=== PATIENT | female | born 1950 | race Caucasian/White ===

== ENCOUNTER 2020-03-20 08:50 | Outpatient (REF) | payer MEDICARE, SELFPAY ==
[2020-03-20 11:06] LABS: MANUAL DIFF FLAG NO
[2020-03-20 11:22] LABS: Basophils Percent Auto 0.2 % (0-2); Eosinophils Absolute Auto 0.1 X10*3/uL (0.0-0.4); Eosinophils Percent Auto 0.7 % (0-4); Hematocrit 39.3 % (37-47); Hemoglobin 12.6 g/dl (12.0-16.0); Imm Gran Abs Auto 0.07 X10*3/uL (0.00-0.03); Imm Gran Pct Auto 0.7 % (0.0-0.4); Lymphocytes Absolute Auto 1.5 X10*3/uL (1.2-4.9); Lymphocytes Percent Auto 14.5 % (20-40); Mean Corpuscular HGB Conc 32.1 g/dl (31.0-35.0); Mean Corpuscular Hemoglobin 31.3 pg (27.0-33.0); Mean Corpuscular Volume 97.8 fL (80-98); Mean Platelet Volume 9.4 fL (9.4-12.3); Monocytes Absolute Auto 0.6 X10*3/uL (0.1-1.2); Monocytes Percent Auto 5.9 % (2-11); Neutrophils Absolute Auto 8.3 X10*3/uL (2.0-8.3); Platelet Count 282 X10*3/uL (160-400); Red Blood Count 4.02 X10*6/uL (4.20-5.50); Red Cell Distribution Width 12.7 % (11.0-16.0); White Blood Count 10.6 X10*3/uL (4.8-10.8)
[2020-03-20 11:39] LABS: Alanine Aminotransferase 32 U/L (0-31); Albumin Level 4.9 g/dL (3.5-5.0); Alkaline Phosphatase 78 U/L (39-117); Anion Gap 16 (12-20); Aspartate Amino Transferase 27 U/L (5-31); Bilirubin Total 0.6 mg/dL (0.0-1.0); Blood Urea Nitrogen 35 mg/dL (9-16); Carbon Dioxide 22 mmol/L (22-29); Chloride 103 mmol/L (96-108); Cholesterol 217 mg/dL; Estimated Glomerular Filt Rate 50; Glucose Fasting 103 mg/dL (60-99); HDL Cholesterol 74 mg/dL; LDL Cholesterol Calculated 125 mg/dl; Potassium 5.3 mmol/l (3.3-5.1); Sodium 136 mmol/L (135-145); Total Protein 7.6 g/dL (6.5-8.0); Triglycerides 92 mg/dL
[2020-03-20 11:43] LABS: Glucose Urine UA NEG (NEG); Leukocyte Esterase Urine NEG (NEG); Nitrite Urine NEG (NEG); Specific Gravity - Urine 1.015 (1.005-1.025); Urine Blood NEG (NEG); Urine Ketones NEG (NEG); Urine Protein NEG (NEG-TRACE)
[2020-03-20 11:50] LABS: Appearance Urine CLEAR; Color Urine YELLOW
[2020-03-21 21:22] LABS: Calcium (PTHI) 10.7 mg/dL (8.6-10.4); PTHI 25 pg/mL (14-64)
== END 2020-03-20 08:51 | disposition home or self-care (01) ==
LOC: HO.HMGCLDS 08:50
PROVIDERS: Absent Provider Internal Medicine Rheumatology; PCP Internal Medicine; Visit Provider Internal Medicine
DX: I12.9 Hypertensive chronic kidney disease with stage 1 through stage 4 chronic kidney disease, or unspecified chronic kidney disease (principal); N18.9 Chronic kidney disease, unspecified; E78.00 Pure hypercholesterolemia, unspecified; E83.52 Hypercalcemia
CPT/HCPCS: 36415; 80053; 80061; 81003; 83970; 85025

== ENCOUNTER → 2020-10-30 13:09 | Outpatient (BNV) | payer MEDICARE, SELFPAY | PROVIDERS: PCP Internal Medicine; Referring Provider Internal Medicine; Visit Provider Internal Medicine Medical Oncology | DX: D64.9 Anemia, unspecified (principal); Z82.49 Family history of ischemic heart disease and other diseases of the circulatory system | CPT/HCPCS: 99203; 99213; 99214 ==

== ENCOUNTER 2021-04-22 09:33 | Outpatient (REF) | payer MEDICARE, SELFPAY ==
[2021-04-22 11:42] LABS: MANUAL DIFF FLAG NO
[2021-04-22 11:54] LABS: Basophils Percent Auto 0.3 % (0-2); Eosinophils Absolute Auto 0.1 X10*3/uL (0.0-0.4); Eosinophils Percent Auto 0.9 % (0-4); Hematocrit 38.1 % (37.0-47.0); Hemoglobin 12.3 g/dl (12.0-16.0); Imm Gran Abs Auto 0.04 X10*3/uL (0.00-0.03); Imm Gran Pct Auto 0.5 % (0.0-0.4); Lymphocytes Absolute Auto 1.4 X10*3/uL (1.2-4.9); Lymphocytes Percent Auto 17.8 % (20-40); Mean Corpuscular HGB Conc 32.3 g/dl (31.0-35.0); Mean Corpuscular Hemoglobin 30.8 pg (27.0-33.0); Mean Corpuscular Volume 95.3 fL (80.0-98.0); Mean Platelet Volume 9.3 fL (9.4-12.3); Monocytes Absolute Auto 0.7 X10*3/uL (0.1-1.2); Monocytes Percent Auto 8.4 % (2-11); Neutrophils Absolute Auto 5.8 x10*3/uL (2.0-8.3); Neutrophils Percent Auto 72.1 % (45-73); Platelet Count 268 X10*3/uL (160-400); Red Cell Distribution Width 13.4 % (11.0-16.0)
[2021-04-22 12:38] LABS: Alanine Aminotransferase 29 U/L (0-31); Albumin Level 4.7 g/dL (3.5-5.0); Alkaline Phosphatase 86 U/L (39-117); Anion Gap 20 (12-20); Aspartate Amino Transferase 28 U/L (5-31); Bilirubin Total 0.6 mg/dL (0.0-1.0); Blood Urea Nitrogen 34 mg/dL (9-16); Calcium 10.3 mg/dL (8.4-10.2); Carbon Dioxide 20 mmol/L (22-29); Chloride 105 mmol/L (96-108); Cholesterol 218 mg/dL; Estimated Glomerular Filt Rate 55; Glucose Fasting 96 mg/dL (60-99); HDL Cholesterol 62 mg/dL; LDL Cholesterol Calculated 130 mg/dl; Potassium 5.7 mmol/L (3.3-5.1); Sodium 139 mmol/L (135-145); Total Protein 7.8 g/dL (6.5-8.0); Triglycerides 134 mg/dL
== END 2021-04-22 09:34 | disposition home or self-care (01) ==
LOC: HO.HMGCLDS 09:33
PROVIDERS: PCP Internal Medicine; Visit Provider Internal Medicine
DX: M19.90 Unspecified osteoarthritis, unspecified site (principal); I10 Essential (primary) hypertension; E78.00 Pure hypercholesterolemia, unspecified
CPT/HCPCS: 36415; 80053; 80061; 85025

== ENCOUNTER 2022-03-19 14:02 | Outpatient (REF) | payer MEDICARE, SELFPAY ==
--- NOTE | ~2022-03-19 | MM_ITS ---
EXAMINATION: MM SCREENING DIGITAL BREAST TOMOSYNTHESIS, BILATERAL CLINICAL INFORMATION: Screening. Asymptomatic. The lifetime risk of breast cancer based on the Tyrer-Cuzick Model is 5%. COMPARISON: Mammography: 03/22/2019, 03/10/2017, 02/26/2017 TECHNIQUE: Digital breast tomosynthesis is performed in both the craniocaudal and mediolateral oblique views along with computer-aided detection (CAD). Synthesized 2D images are generated from the tomosynthesis. FINDINGS: The breasts are heterogeneously dense, which may obscure small masses (ACR BI-RADS breast composition Category c). There are no significant masses, abnormal calcifications, or other abnormalities. Parenchymal pattern is similar to prior studies. There is no developing density or architectural abnormality. The axilla and skin contours are unremarkable. No significant changes. MM/MM tomosynthesis screening BI IMPRESSION: No mammographic evidence of malignancy. ASSESSMENT: BI-RADS 1: Negative RECOMMENDATION: Routine annual mammography screening. This patient's information was entered into a reminder system with a target due date for their next mammogram.
--- NOTE | ~2022-03-19 | MM_ITS ---
EXAMINATION: BONE DENSITOMETRY CLINICAL INDICATION: Vertebral fracture. COMPARISON: Previous BD dated 03/22/2019 and baseline BD dated 09/14/2007. TECHNIQUE: Using a [employer] DXA System (software version: 13.1) manufactured by [employer], dual-energy x-ray absorptiometry was performed of the lumbar spine and left hip. The images are of good technical quality. Summary results are attached. FINDINGS: AP SPINE L2-L4 (excluding L1): The data of L1-L4 has been changed to exclude the L1 vertebral body, because degenerative changes at this level may cause overestimation of lumbar spine density. Current: BMD 1.519 g/cm2, Z-score 4.3, T-score 2.7, normal, 8.6% increase from previous, 19.1% increase from baseline (<5% change is not significant). Prior: BMD 1.399 g/cm2. Baseline: BMD 1.275 g/cm2. LEFT FEMUR, NECK: Current: BMD 0.915 g/cm2, Z-score 0.9, T-score -0.9, normal. Prior: BMD 0.936 g/cm2. Baseline: BMD 0.929 g/cm2. LEFT FEMUR, TOTAL: Current: BMD 0.909 g/cm2, Z-score 0.8, T-score -0.8, normal, 4.7% decrease from previous, 1.2% decrease from baseline (<5% change is not significant). Prior: BMD 0.954 g/cm2. Baseline: BMD 0.920 g/cm2. IDENTIFIED RISK FACTORS: Height loss, history of fracture (adult), menopause. HISTORY OF FRACTURE: Extremity. MEDICATIONS: Multivitamin. MM/XR DEXA axial skeleton IMPRESSION: 1. DIAGNOSIS: Normal bone density based on the lowest T-score value of -0.9 in the femoral neck applying World Health Organization criteria. 2. 10-YEAR FRACTURE RISK PREDICTION, FRAX: According to the guidelines, FRAX calculation should only be performed on patients in the osteopenia bone density category. Therefore, FRAX was not performed on this patient. 3. Treatment Recommendations: NOF guidelines recommend consideration for treatment in postmenopausal women and men age 50 and older presenting with the following: -A hip or vertebral (clinical or morphometric) fracture. -T-score less than or equal to -2.5 at the femoral neck or spine after appropriate evaluation to exclude secondary causes. -Low bone mass at the hip or spine and a 10-year fracture probability by FRAX of greater than or equal to 3% for hip fracture or greater than or equal to 20% for major osteoporotic fracture based on the [place] adapted WHO algorithm. 4. Other Recommendations: All treatment decisions require clinical judgment and consideration of individual patient factors, including patient preferences, comorbidities, previous drug use, risk factors not captured in the FRAX model (e.g. frailty, falls, vitamin D deficiency, increased bone turnover, interval significant decline in bone density) and possible under or overestimation of fracture risk by FRAX. FUTURE SCAN RECOMMENDATION: People with diagnosed cases of osteoporosis or at high risk for fracture should have regular bone mineral density tests. For patients eligible for Medicare, routine testing is allowed once every 2 years. The testing frequency can be increased to one year for patients who have rapidly progressing disease, those who are receiving or discontinuing medical therapy to restore bone mass, or have additional risk factors.
== END 2022-03-19 14:03 | disposition home or self-care (01) ==
LOC: HO.MAMMO 14:02
PROVIDERS: PCP Internal Medicine; Visit Provider Internal Medicine
DX: Z12.31 Encounter for screening mammogram for malignant neoplasm of breast (principal); Z13.820 Encounter for screening for osteoporosis; Z78.0 Asymptomatic menopausal state
CPT/HCPCS: 77063; 77067; 77080

== ENCOUNTER 2022-10-29 12:05 | Outpatient (REF) | payer MEDICARE, SELFPAY ==
[2022-10-29 13:36] LABS: MANUAL DIFF FLAG NO
[2022-10-29 13:50] LABS: Basophils Percent Auto 0.3 % (0-2); Eosinophils Absolute Auto 0.1 X10*3/uL (0.0-0.4); Eosinophils Percent Auto 0.8 % (0-4); Imm Gran Abs Auto 0.03 X10*3/uL (0.00-0.03); Imm Gran Pct Auto 0.4 % (0.0-0.4); Lymphocytes Absolute Auto 1.1 X10*3/uL (1.2-4.9); Lymphocytes Percent Auto 14.3 % (20-40); Mean Corpuscular HGB Conc 28.8 g/dl (31.0-35.0); Mean Corpuscular Hemoglobin 22.7 pg (27.0-33.0); Mean Corpuscular Volume 78.9 fL (80.0-98.0); Mean Platelet Volume 9.2 fL (9.4-12.3); Monocytes Absolute Auto 0.7 X10*3/uL (0.1-1.2); Monocytes Percent Auto 9.8 % (2-11); Neutrophils Absolute Auto 5.4 x10*3/uL (2.0-8.3); Neutrophils Percent Auto 74.4 % (45-73); Platelet Count 300 X10*3/uL (160-400); Red Blood Count 3.04 X10*6/uL (4.20-5.50); Red Cell Distribution Width 14.3 % (11.0-16.0); White Blood Count 7.3 X10*3/uL (4.8-10.8)
[2022-10-29 13:55] LABS: Hemoglobin 6.9 g/dl (12.0-16.0)
[2022-10-29 14:13] LABS: Alanine Aminotransferase 28 U/L (0-31); Albumin Level 4.7 g/dL (3.5-5.0); Alkaline Phosphatase 64 U/L (39-117); Anion Gap 17 (12-20); Aspartate Amino Transferase 26 U/L (5-31); Bilirubin Total 0.3 mg/dL (0.0-1.0); Blood Urea Nitrogen 46 mg/dL (9-16); Calcium 10.3 mg/dL (8.4-10.2); Carbon Dioxide 22 mmol/L (22-29); Chloride 105 mmol/L (96-108); Estimated Glomerular Filt Rate 42; Glucose Random 108 mg/dL (60-115); Iron 16 mcg/dL (30-160); Percent Iron Saturation 3 % (15-50); Potassium 5.6 mmol/L (3.3-5.1); Sodium 138 mmol/L (135-145); Total Iron Binding Capacity 485 mcg/dL (228-428); Total Protein 7.2 g/dL (6.5-8.0); Unsaturated Iron Binding 469 ug/dL
== END 2022-10-29 12:06 | disposition home or self-care (01) ==
LOC: HO.10HDL 12:05
PROVIDERS: Visit Provider Internal Medicine
DX: I10 Essential (primary) hypertension (principal); D64.9 Anemia, unspecified; M19.90 Unspecified osteoarthritis, unspecified site
CPT/HCPCS: 36415; 80053; 83540; 85025

== ENCOUNTER 2022-12-15 11:04 | Outpatient (REF) | payer MEDICARE, SELFPAY ==
[2022-12-15 13:14] LABS: MANUAL DIFF FLAG NO
[2022-12-15 13:44] LABS: Basophils Percent Auto 0.3 % (0-2); Eosinophils Absolute Auto 0.1 X10*3/uL (0.0-0.4); Eosinophils Percent Auto 1.5 % (0-4); Hematocrit 22.2 % (37.0-47.0); Imm Gran Abs Auto 0.03 X10*3/uL (0.00-0.03); Imm Gran Pct Auto 0.5 % (0.0-0.4); Lymphocytes Percent Auto 17.6 % (20-40); Mean Corpuscular HGB Conc 29.3 g/dl (31.0-35.0); Mean Corpuscular Hemoglobin 28.4 pg (27.0-33.0); Mean Corpuscular Volume 96.9 fL (80.0-98.0); Mean Platelet Volume 9.4 fL (9.4-12.3); Monocytes Absolute Auto 0.7 X10*3/uL (0.1-1.2); Monocytes Percent Auto 11.9 % (2-11); Neutrophils Percent Auto 68.2 % (45-73); Platelet Count 279 X10*3/uL (160-400); Red Blood Count 2.29 X10*6/uL (4.20-5.50); Red Cell Distribution Width 18.6 % (11.0-16.0); White Blood Count 5.8 X10*3/uL (4.8-10.8)
[2022-12-15 13:56] LABS: Hemoglobin 6.5 g/dl (12.0-16.0)
[2022-12-15 14:30] LABS: Alanine Aminotransferase 24 U/L (0-31); Alkaline Phosphatase 49 U/L (39-117); Anion Gap 14 (12-20); Aspartate Amino Transferase 21 U/L (5-31); Bilirubin Total 0.2 mg/dL (0.0-1.0); Blood Urea Nitrogen 34 mg/dL (9-16); Carbon Dioxide 20 mmol/L (22-29); Chloride 107 mmol/L (96-108); Estimated Glomerular Filt Rate 54; Glucose Random 101 mg/dL (60-115); Iron 13 mcg/dL (30-160); Percent Iron Saturation 3 % (15-50); Potassium 4.7 mmol/L (3.3-5.1); Sodium 136 mmol/L (135-145); Total Iron Binding Capacity 391 mcg/dL (228-428); Total Protein 6.5 g/dL (6.5-8.0); Unsaturated Iron Binding 378 ug/dL
== END 2022-12-15 11:05 | disposition home or self-care (01) ==
LOC: HO.HMGCLDS 11:04
PROVIDERS: PCP Internal Medicine; Visit Provider Internal Medicine
DX: D64.9 Anemia, unspecified (principal); N18.9 Chronic kidney disease, unspecified
CPT/HCPCS: 36415; 80053; 83540; 85025

== ENCOUNTER 2022-12-26 16:04 | Outpatient (REF) | payer MEDICARE, SELFPAY ==
[2022-12-27 07:14] LABS: OBS Int Ctl Valid YES; OBS1 POSITIVE (NEGATIVE); OBS2 POSITIVE (NEGATIVE); OBS3 POSITIVE (NEGATIVE)
== END 2022-12-26 16:05 | disposition home or self-care (01) ==
LOC: HO.LNP 16:04
PROVIDERS: Visit Provider Internal Medicine Medical Oncology
DX: D64.9 Anemia, unspecified (principal)
CPT/HCPCS: 82270

== ENCOUNTER 2023-01-13 10:53 | Outpatient (AMB) | payer MEDICARE, SELFPAY ==
--- NOTE | 2023-01-13 10:57 | A.OFFVIS_ITS ---
Intake Vital Signs 01/13/23 11:00 Height 4 ft 9 in Weight 152 lb 1.903 oz BMI 32.9 BP 149/67 H Blood Pressure Location Lt brachial Position Sitting Pulse 93 Intake Visit Reasons: iron deficiency Intake Note: Loreto presents in the office as a new patient for iron def. CC: She has seen Dr Li and Dr Wong. They did a blood transfusion on 12/18/22 Surgical Services Coordinator Required: No Allergies penicillin G [PENICILLIN G] Allergy (Unknown, Unverified 01/13/23 11:00) Rash Seasonale Allergy (Unknown, Uncoded 01/13/23 11:00) Unknown HPI HPI Comments History of Present Illness Details 72 y.o F with PMH of HTN, seasonal allergies and arthritis who is here for severe RORO. Pt reports noticing decreased stamina and shortness of breath on strenuous activities such as shoveling snow in Jun that has progressively worsened over the past few months. She reports finding out about anemia in October when she had blood work through orthopedics and was ntoed to have a Hb of 6.8. Was started on iron supplements and also followed up with Heme. Underwent x2u PRBC transfusion on 12/18. Was taking celebrex for arthritis which she stopped in October, otherwise no NSAID use. Does not report any gastrointestinal complaints to include abd pain, N, V, melena or hematochezia. No change in appetite or unintentional weight loss. Last colo was in her 50s (Dr Marquez) and was given a 10y interval however has been doing annual stool cards instead. No fam hx of CRC in first degree relatives. PFS Medical History Arthritis History of broken leg HTN (hypertension) Hx of glaucoma Surgical History Hx of carpal tunnel repair Hx of colonoscopy Family History Sister Lung cancer COPD (chronic obstructive pulmonary disease) Breast cancer Afib Father DVT (deep venous thrombosis) Heart disease Social History Household Members: Spouse and Other Alcohol intake: former service: No Review of Systems Const All systems reviewed & are unremarkable except as noted in HPI and below Physical Exam Vital Signs: Last Vital Signs Pulse 93 01/13/23 11:00 BP 149/67 H 01/13/23 11:00 BMI result Body Mass Index 32.9 Gen appear: NAD HEENT: nonicteric, no cervical lymphadenopathy Chest: CTA CVS: Regular S1/S2 Abd: soft, nontender, nondistended, bowel sounds + Ext: no peripheral edema Neuro: A/Ox3, noted to move all extremities spontaneously Psych: interacting appropriately Assessment & Plan Assessment & Plan (1) Iron deficiency: Code(s): E61.1 - Iron deficiency (2) Anemia: Code(s): D64.9 - Anemia, unspecified Plan Presents with likely subacute to chronic severe RORO given hemodynamic compensation and minimal sx. s/p 2u PRBC transfusion 12/18, will recheck CBC. DDx include PUD, esophagitis/gastritis, AVMs, large friable polyp or mass. Will set her up for urgent EGD/colo for luminal evaluation. A CT Abd/pel with IV contrast has also been ordered. Recommendations: - Recheck CBC this week to ensure does not need another unit prior to her procedure - EGD/colo URGENTLY in the next few weeks - Split PEG prep instructions reviewed with the pt and handout given. She was also advised to HOLD her iron supplement x 5 days before the procedure. - CT Abd/pel with IV contrast Follow up after scopes. Orders: Orders Ferritin Today D64.9 - Anemia, unspecified Complete Blood Count no Diff Today D64.9 - Anemia, unspecified CT abdomen pelvis w IV con Today D64.9 - Anemia, unspecified Medications: New peg 3350-electrolytes 236-22.74-6.74 -5.86 gram (Golytely) as per split prep instructions, until fecal effluent is clear 240 mL PO Q10M 4,000 mL 0RF colonoscopy Coding Level of Care Code New Pt Level 4 (16153) Diagnoses Iron deficiency E61.1 Anemia D64.9
[2023-01-13 11:00] VITALS: BP 149/67; PULSE 93; BMI 32.9
[2023-01-13 12:48] LABS: Hematocrit 28.3 % (37.0-47.0); Hemoglobin 8.7 g/dl (12.0-16.0); Mean Corpuscular HGB Conc 30.7 g/dl (31.0-35.0); Mean Corpuscular Hemoglobin 31.9 pg (27.0-33.0); Mean Corpuscular Volume 103.7 fL (80.0-98.0); Mean Platelet Volume 8.8 fL (9.4-12.3); Platelet Count 269 X10*3/uL (160-400); Red Blood Count 2.73 X10*6/uL (4.20-5.50); Red Cell Distribution Width 14.7 % (11.0-16.0); White Blood Count 8.6 X10*3/uL (4.8-10.8)
[2023-01-13 13:39] LABS: Ferritin 33 ng/mL (10-250)
== END 2023-01-13 12:14 | disposition home or self-care (01) ==
PROVIDERS: PCP Internal Medicine; Visit Provider Internal Medicine
DX: E61.1 Iron deficiency (principal); D64.9 Anemia, unspecified
CPT/HCPCS: 99204

== ENCOUNTER → 2023-01-13 10:53 | Outpatient (BNVA) | payer MEDICARE, SELFPAY | PROVIDERS: PCP Internal Medicine; Visit Provider Internal Medicine | DX: E61.1 Iron deficiency (principal); D64.9 Anemia, unspecified | CPT/HCPCS: 36415; 85027; 99202 ==

== ENCOUNTER 2023-01-23 13:20 | Day surgery (SDC) | payer MEDICARE, SELFPAY ==
--- NOTE | 2023-01-22 09:58 | P.CONAN_ITS ---
Documented by User: Elida Ricks NP 01/22/23 09:59 HPI - Anesthesia Eval Consult details Narrative: 72yo F for Upper Endoscopy and Colonoscopy [facility] Active Problems Active Problems: All Active Problems (Updated 01/19/23 @ 13:40 by Martha Wong MD) Hypercalcemia (Acute) Iron deficiency (Acute) Family history of deep vein thrombosis (Acute) Anemia (Acute) Past Medical History Medical History Arthritis History of broken leg HTN (hypertension) Hx of glaucoma Family History Family History Sister Lung cancer COPD (chronic obstructive pulmonary disease) Breast cancer Afib Father DVT (deep venous thrombosis) Heart disease Surgical History Surgical History Hx of carpal tunnel repair Hx of colonoscopy Social History Social History Household Members: Spouse and Other Alcohol intake: former Use of substances other than those prescribed or required for medical reasons: No Have you been hit, kicked, punched, or otherwise hurt by someone within the past year? If so, by whom?: No Do you have thoughts of harming others: None Patient : No service: No Meds Allergies Allergy/AdvReac Type Severity Reaction Status Date / Time penicillin G [PENICILLIN G] Allergy Unknown Rash Unverified 01/19/23 10:37 Seasonale Allergy Unknown Unknown Uncoded 01/19/23 10:37 Home Medications Medication Instructions Recorded Confirmed Last Taken Type acetaminophen 650 mg 650 mg PO Q8H PRN Pain 10/30/20 01/19/23 Unknown History tablet,extended release (Tylenol Arthritis Pain) calcium 100 mg capsule 100 mg PO DAILY 10/30/20 01/19/23 Unknown History fluticasone propionate 50 1 spray intranasal DAILY 10/30/20 01/19/23 Unknown History mcg/actuation nasal spray,suspension glucosam 750 mg-chondroi 100 1 tab PO DAILY 10/30/20 01/19/23 Unknown History mg-hyalur 1.65 mg-CF borate 108 mg tablet ([employer]) lisinopril 10 mg tablet 1 tab PO BID 10/30/20 01/19/23 Unknown History multivitamin 1 tab PO DAILY 10/30/20 01/19/23 Unknown History omega-3 fatty acids 1,000 mg PO DAILY 10/30/20 01/19/23 Unknown History vitamin B6-vitamin E-magnesium 1 tab PO DAILY 10/30/20 01/19/23 Unknown History tablet ascorbic acid (vitamin C) 500 mg 500 mg PO DAILY 12/18/22 01/19/23 Unknown History tablet (Vitamin C) ferrous sulfate 325 mg (65 mg 325 mg PO DAILY 12/18/22 01/19/23 Unknown History iron) tablet (iron) omeprazole 20 mg delayed 20 mg PO DAILY 12/18/22 01/19/23 Unknown History release,disintegrating tablet Exam Exam Date and Time: January 22, 2023 0958 Pertinent Lab Results Pertinent Lab Results: Laboratory Tests 12/18/22 01/13/23 10:27 12:28 WBC 8.6 Hgb 8.7 L D Hct 28.3 L D Plt Count 269 Sodium 140 Potassium 5.4 H Chloride 108 Carbon Dioxide 22 BUN 40 H Creatinine 1.09 Assessment and Plan Assessment Anesthesia Assessment: Chart Reviewed Documented by User: Erick Lowery MD 01/23/23 13:10 [facility] Past Medical History Medical History Arthritis History of broken leg HTN (hypertension) Hx of glaucoma Family History Family History Sister Lung cancer COPD (chronic obstructive pulmonary disease) Breast cancer Afib Father DVT (deep venous thrombosis) Heart disease Family history of problems with anesthesia: No Surgical History Surgical History Hx of carpal tunnel repair Hx of colonoscopy History of Problems with Anesthesia: Yes Social History Social History Household Members: Spouse and Other Alcohol intake: former Use of substances other than those prescribed or required for medical reasons: No Have you been hit, kicked, punched, or otherwise hurt by someone within the past year? If so, by whom?: No Do you have thoughts of harming others: None Patient : No service: No Meds Allergies Allergy/AdvReac Type Severity Reaction Status Date / Time penicillin G [PENICILLIN G] Allergy Unknown Rash Unverified 01/19/23 10:37 Seasonale Allergy Unknown Unknown Uncoded 01/19/23 10:37 Home Medications Medication Instructions Recorded Confirmed Last Taken Type acetaminophen 650 mg 650 mg PO Q8H PRN Pain 10/30/20 01/19/23 Unknown History tablet,extended release (Tylenol Arthritis Pain) calcium 100 mg capsule 100 mg PO DAILY 10/30/20 01/19/23 Unknown History fluticasone propionate 50 1 spray intranasal DAILY 10/30/20 01/19/23 Unknown History mcg/actuation nasal spray,suspension glucosam 750 mg-chondroi 100 1 tab PO DAILY 10/30/20 01/19/23 Unknown History mg-hyalur 1.65 mg-CF borate 108 mg tablet ([facility] [employer] [facility]) lisinopril 10 mg tablet 1 tab PO BID 10/30/20 01/19/23 Unknown History multivitamin 1 tab PO DAILY 10/30/20 01/19/23 Unknown History omega-3 fatty acids 1,000 mg PO DAILY 10/30/20 01/19/23 Unknown History vitamin B6-vitamin E-magnesium 1 tab PO DAILY 10/30/20 01/19/23 Unknown History tablet ascorbic acid (vitamin C) 500 mg 500 mg PO DAILY 12/18/22 01/19/23 Unknown History tablet (Vitamin C) ferrous sulfate 325 mg (65 mg 325 mg PO DAILY 12/18/22 01/19/23 Unknown History iron) tablet (iron) omeprazole 20 mg delayed 20 mg PO DAILY 12/18/22 01/19/23 Unknown History release,disintegrating tablet Exam Airway Mallampati Class: II TM Dist: >3cm Neck ROM: Limited Heart: rrr Lungs: cta Assessment and Plan Assessment Anesthesia Assessment: Anesthesia Plan Discussed Final Anesthetic Review Family History of Problems with Anesthesia: No History of Problems with Anesthesia: Yes ASA Class: II Final Preanesthetic Review: No Changes in Pt Med Stat, Meds/Allgs Chart Reviewed, Consent Obtained/Reviewed and Anes Risks/Benef Reviewed Patient Risk: Intermediate Procedure Risk: Intermediate Anesthetic Plan Anesthetic Plan: MAC: and Agree w/ Assess. and Plan Disposition: Standard PACU
[2023-01-23 13:49] VITALS: BMI 33.1
[2023-01-23 13:54] VITALS: BP 160/52; PULSE 88; RESP 18; TEMP 36.8; O2SAT 100
[2023-01-23] MEDS: Lactated Ringers 1,000 ML 100 ML IVCONT (14:24)
--- NOTE | 2023-01-23 14:38 | MHC.SHP ---
Pre-Procedural Eval Section A Date of Service: 01/23/23 The History & Physical has been completed within 30 days and I have reviewed it.: Yes Section B Chief Complaint: Anemia, unspecified,screening Allergies: Allergies Allergy/AdvReac Type Severity Reaction Status Date / Time penicillin G [PENICILLIN G] Allergy Unknown Rash Unverified 01/19/23 10:37 Seasonale Allergy Unknown Unknown Uncoded 01/19/23 10:37 Plan Diagnosis/Plan: Unchanged I have reviewed the history and physical and performed a pertinent physical examination on my patient. No changes have occurred unless specified. Time Spent With Patient Time: Total time managing care of this patient today ____ minutes.
--- NOTE | 2023-01-23 14:42 | P.OP_ITS ---
Operative Note Operative Note Date of Service: 01/23/23 Narrative: Procedure:?Esophagogastroduodenoscopy and colonoscopy Endoscopist:?Loreta Rice MD Indication:?Abd pain, rectal bleeding Anesthesia Provider:?Sushma Rinaldi CRNA Anesthesia Type:?MAC Instrument:?Olympus GIF-H190, PCF-H190L EGD Procedure:?? The procedure, indications, preparation and potential complications were reviewed with the patient, who indicated understanding and gave written informed consent to proceed. A physical exam was performed. The endoscope was introduced through the mouth, and advanced to the second part of duodenum. The mucosa was carefully examined on slow withdrawal of the endoscope.? There were no immediate complications.? Patient tolerated the procedure well. EGD Findings:? * Esophagus:? Normal mucosa noted in the entire esophagus.? The Z-line is at 30 cm. There was a small hiatal hernia with a diaphragmatic pinch at 35 cm.? * Stomach:? 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 This was ablate with Argon plasma coagulation. Retroflexion was performed in the fundus and showed Hill grade III hiatal hernia. Cold forceps biopsies were taken to r/o H Pylori. * Duodenum:?Normal duodenal mucosa to the extent visualised. Cold forceps biopsies were taken to rule out celiac disease. Colonoscopy Procedure:? The patient was then turned for the colonoscopy. A digital rectal exam was performed which was abnormal for external hemorrhoid.? A distal attachment cap was affixed to the tip of the scope and the colonoscope was then inserted through the anus and advanced through the colon to the cecum at 75 cm and terminal ileum. Appendiceal orifice and ileocecal valve were identified. Mucosa was carefully examined under high definition white light as the instrument was slowly withdrawn in a retrograde panoramic fashion. Retroflexion could not be performed in rectum due to narrowed rectal vault, see below. The procedure was not difficult. There were no immediate obvious complications. The quality of the prep was BBPS: 3+2+3 = adequate Withdrawal time: 11 minutes Limitations: No limitation. Findings: Mucosa: Normal colon and terminal ileum mucosa to the extent visualised. Protruding lesions: * 1 sessile polyp of size 5 mm ascending colon. Cold snare polypectomy was performed. The polyp was completely removed but not retrieved. * 2 sessile polyps of size 3-4 mm transverse colon. Cold snare polypectomy was performed. The polyps were completely removed and retrieved. * Medium internal hemorrhoids without stigmata of recent bleeding. Impression: 1. Normal esophageal mucosa 2. Hiatal hernia 3. GAVE (APC) 4. Normal duodenum (biopsy) 5. Normal colon and terminal ileum mucosa 6. Total 3 polyps removed, 2 retrieved. 7. Internal hemorrhoids Recommendations: - Anemia possibly due to GAVE which was ablated today. - Repeat CBC in 2 weeks. Low threshold to repeat EGD with ablation if H/H continues to decline - If anemia persistent despite complete obliteration of GAVE, will need small bowel evaluation - Follow path results - Repeat colonoscopy for colon cancer screening in 3-5 years if patient in good health
[2023-01-23 15:31] VITALS: BP 99/48; PULSE 68; RESP 16; TEMP 36.2; O2SAT 97
[2023-01-23 15:46] VITALS: BP 131/54; PULSE 77; RESP 18; O2SAT 99
[2023-01-23 16:01] VITALS: BP 142/61; PULSE 79; RESP 18; TEMP 36.2; O2SAT 100
== END 2023-01-23 16:14 | disposition home or self-care (01) ==
PROVIDERS: PCP Internal Medicine; Visit Provider Internal Medicine
PROC: (CPT 45385; principal; 2023-01-23 14:50)
DX: Z12.11 Encounter for screening for malignant neoplasm of colon (principal); D12.3 Benign neoplasm of transverse colon; K63.5 Polyp of colon; K64.8 Other hemorrhoids; K64.4 Residual hemorrhoidal skin tags; K31.811 Angiodysplasia of stomach and duodenum with bleeding; K44.9 Diaphragmatic hernia without obstruction or gangrene; D64.9 Anemia, unspecified; I10 Essential (primary) hypertension; Z79.899 Other long term (current) drug therapy
CPT/HCPCS: 45385; 43239; 43255; 88305; 88342; J2250

== ENCOUNTER → 2023-01-23 13:20 | Outpatient (BNV) | payer MEDICARE, SELFPAY | PROVIDERS: PCP Internal Medicine; Visit Provider Internal Medicine | DX: R10.9 Unspecified abdominal pain (principal); K62.5 Hemorrhage of anus and rectum; D12.2 Benign neoplasm of ascending colon; D12.3 Benign neoplasm of transverse colon; K64.8 Other hemorrhoids | CPT/HCPCS: 43239; 45385 ==

== ENCOUNTER 2023-01-29 11:05 | Outpatient (REF) | payer MEDICARE, SELFPAY ==
[2023-01-29 13:01] LABS: Anion Gap 12 (12-20); Blood Urea Nitrogen 33 mg/dL (9-16); Carbon Dioxide 25 mmol/L (22-29); Chloride 107 mmol/L (96-108); Estimated Glomerular Filt Rate 55; Glucose Random 100 mg/dL (60-115); Potassium 5.1 mmol/L (3.3-5.1); Sodium 139 mmol/L (135-145)
== END 2023-01-29 11:06 | disposition home or self-care (01) ==
LOC: HO.LAB 11:05
PROVIDERS: PCP Internal Medicine; Visit Provider Internal Medicine
DX: E83.52 Hypercalcemia (principal)
CPT/HCPCS: 36415; 80048

== ENCOUNTER 2023-02-02 11:36 | Outpatient (REF) | payer MEDICARE, SELFPAY ==
--- NOTE | ~2023-02-02 | CT_ITS ---
EXAMINATION: CT ABDOMEN AND PELVIS WITH CONTRAST CLINICAL INFORMATION: Anemia, unspecified COMPARISON: None available. TECHNIQUE: Multidetector volumetric images were obtained from the superior aspect of the liver through the pubic symphysis following administration 85 mL of Omnipaque 350 intravenous contrast. Sagittal and coronal reformatted images were obtained on the technologist's workstation. Oral contrast: No This CT examination was performed using dose optimization techniques as appropriate, variously including the following: *Automated exposure control *Adjustment of mA and/or kV according to patient size (this includes techniques or standardized protocols for targeted exams where dose is matched to indication/reason for exam; i.e. extremities or head) *Use of iterative reconstruction technique DLP: 660 mGy-cm FINDINGS: LUNG BASES: Mild dependent atelectasis. LIVER, GALLBLADDER, AND BILIARY TREE: The liver is normal in size, shape, and attenuation. No focal hepatic lesion or biliary ductal dilatation is present. The gallbladder is unremarkable with no evidence of radiopaque gallstones, gallbladder wall thickening, or obvious pericholecystic inflammatory changes. PANCREAS: Unremarkable. SPLEEN: Unremarkable. ADRENAL GLANDS: Unremarkable. KIDNEYS AND URETERS: The kidneys are normal in size, shape, and attenuation. There is a subcentimeter hypodensity at the posterior right upper pole measuring fluid attenuation consistent with a simple cyst. No additional workup is recommended. There are bilateral extrarenal pelves. No hydronephrosis, hydroureter, or calculi seen. No perinephric stranding. BLADDER: Unremarkable. GASTROINTESTINAL TRACT: The small and large bowel are unremarkable. The appendix is unremarkable. ABDOMINAL WALL: Small fat-containing umbilical hernia, 12 mm in diameter. LYMPH NODES: Normal. VASCULAR: Mild calcific plaque in the aorta without dilatation. PELVIC VISCERA: There is a left adnexal simple appearing cyst measuring 2.4 x 1.7 x 1.7 cm. No follow-up imaging recommended. The uterus and right adnexa appear unremarkable. OSSEOUS STRUCTURES: No acute fracture or focal destructive lesion is evident. There is degenerative disc disease through the lumbar spine. At L1-2 there is severe disc space narrowing and marked eccentric endplate sclerosis with marginal osteophyte. There is mild retrolisthesis of L1. There is severe degenerative facet arthropathy at L4-5 with moderate to severe disc space narrowing and grade [address]/CT abdomen pelvis w IV con IMPRESSION: No significant abnormality seen in the abdomen or pelvis. Degenerative disc and facet disease in the lumbar spine.. Fleischner guidelines were followed.
[2023-02-02] MEDS: iohexoL 350 MG/ML 100 ML INFUS..BTL IV (16:02)
[2023-02-02] MEDS: Barium Sulfate Oral (Vanilla) 450 ML ORAL.SUSP 900 ML PO (16:02)
== END 2023-02-02 11:37 | disposition home or self-care (01) ==
LOC: HO.CT 11:36
PROVIDERS: PCP Internal Medicine; Visit Provider Internal Medicine
DX: D64.9 Anemia, unspecified (principal)
CPT/HCPCS: 74177; Q9967

== ENCOUNTER 2023-02-04 11:07 | Outpatient (AMB) | payer MEDICARE, SELFPAY ==
[2023-02-04 11:08] VITALS: BP 174/75; PULSE 87; BMI 32.0
--- NOTE | 2023-02-04 11:08 | A.OFFVIS_ITS ---
Intake Vital Signs 02/04/23 11:08 02/04/23 11:47 Height 4 ft 10 in Weight 153 lb 0.013 oz BMI 32.0 BP 174/75 H 160/70 H Blood Pressure Location Lt brachial Lt brachial Position Sitting Sitting Pulse 87 Pulse Source Pulse Oximeter Intake Visit Reasons: S/P Double; Dr. Rice Intake Note: Pt presents to the office today for a s/p double. Pt states she has been feeling okay. Pt denies any N/V/D. Pt states she is going to the bathroom regularly. Pt denies any acid reflux. Allergies penicillin G [PENICILLIN G] Allergy (Unknown, Unverified 02/04/23 11:12) Rash Seasonale Allergy (Unknown, Uncoded 02/04/23 11:12) Unknown HPI HPI Comments History of Present Illness Details 72 y.o F with PMH of HTN, seasonal allergies and arthritis who is here for severe RORO. Pt reports noticing decreased stamina and shortness of breath on strenuous activities such as shoveling snow in Jun that has progressively worsened over the past few months. She reports finding out about anemia in October when she had blood work through orthopedics and was ntoed to have a Hb of 6.8. Was started on iron supplements and also followed up with Heme. Underwent x2u PRBC transfusion on 12/18. Was taking celebrex for arthritis which she stopped in October, otherwise no NSAID use. Does not report any gastrointestinal complaints to include abd pain, N, V, melena or hematochezia. No change in appetite or unintentional weight loss. Last colo was in her 50s (Dr Marquez) and was given a 10y interval however has been doing annual stool cards instead. No fam hx of CRC in first degree relatives. 01/23/23 EGD/colo: Impression: 1. Normal esophageal mucosa 2. Hiatal hernia 3. GAVE (APC) 4. Normal duodenum (biopsy) 5. Normal colon and terminal ileum mucosa 6. Total 3 polyps removed, 2 retrieved. 7. Internal hemorrhoids Path: A.? Duodenum, biopsy:? Duodenal mucosa with preserved villi and no specific change. B.? Stomach, random, biopsy:? Gastric body mucosa with minimal chronic inactive gastritis; negative for H pylori, intestinal metaplasia and dysplasia; gastric antral vascular ectasia cannot be confirmed.? C.? Colon, transverse, 2 polyps:? Tubular adenomas (2 pieces); negative for high-grade dysplasia and carcinoma. 02/02/23: CT Abd/pel: GASTROINTESTINAL TRACT: The small and large bowel are unremarkable. The appendix is unremarkable.? 02/04/23: Comes in today without any abdominal complaints including abd pain, N,V,D or change in bowel habits. EGD/colo results reviewed. CT results reviewed. [facility] Medical History Arthritis History of broken leg HTN (hypertension) Hx of glaucoma Surgical History Hx of carpal tunnel repair Hx of colonoscopy Family History Sister Lung cancer COPD (chronic obstructive pulmonary disease) Breast cancer Afib Father DVT (deep venous thrombosis) Heart disease Social History Household Members: Spouse and Other Alcohol intake: former Patient Tobacco Use Status: Never used Tobacco service: No Review of Systems Const All systems reviewed & are unremarkable except as noted in HPI and below Physical Exam Vital Signs: Last Vital Signs Pulse 87 02/04/23 11:08 BP 174/75 H 02/04/23 11:08 BMI result Body Mass Index 32.0 Gen appear: NAD HEENT: nonicteric, no cervical lymphadenopathy Chest: CTA CVS: Regular S1/S2 Abd: soft, nontender, nondistended, bowel sounds + Ext: no peripheral edema Neuro: A/Ox3, noted to move all extremities spontaneously Psych: interacting appropriately Assessment & Plan Assessment & Plan (1) Iron deficiency: Code(s): E61.1 - Iron deficiency (2) Anemia: Code(s): D64.9 - Anemia, unspecified (3) Personal history of colonic polyps: Code(s): Z86.010 - Personal history of colonic polyps Plan Anemia likely due to GAVE. Reviewed natural progression and options for endoscopic hemostasis including APC, and EBL if needed. Reviewed that typically this responds well to above but if refractory can consider other options such as cryo. Recommendations: - Check CBC and iron studies today - If H/H improving, will check in 4 weeks - Repeat ablation as needed if H/H declines - Cont omeprazole - [place] for polyp surveillance due in 5 years if pt prefers to continue CRC screening Orders: Orders 2 Ferritin Today D64.9 - Anemia, unspecified, E61.1 - Iron deficiency Complete Blood Count no Diff Today D64.9 - Anemia, unspecified, E61.1 - Iron d eficiency IRON PROFILE Today E61.1 - Iron deficiency Coding Level of Care Code Est Pt Level 4 (75428) Diagnoses Iron deficiency E61.1 Anemia D64.9 Personal history of colonic polyps Z86.010
[2023-02-04 11:47] VITALS: BP 160/70
== END 2023-02-04 14:36 | disposition home or self-care (01) ==
PROVIDERS: PCP Internal Medicine; Visit Provider Internal Medicine
DX: E61.1 Iron deficiency (principal); D64.9 Anemia, unspecified; Z86.010 Personal history of colon polyps
CPT/HCPCS: 99214

== ENCOUNTER 2023-02-04 11:07 | Outpatient (REF) | payer MEDICARE, SELFPAY ==
[2023-02-04 12:10] LABS: MANUAL DIFF FLAG NO
[2023-02-04 12:29] LABS: Basophils Percent Auto 0.3 % (0-2); Eosinophils Absolute Auto 0.1 X10*3/uL (0.0-0.4); Eosinophils Percent Auto 1.2 % (0-4); Hematocrit 28.8 % (37.0-47.0); Hemoglobin 8.5 g/dl (12.0-16.0); Imm Gran Abs Auto 0.03 X10*3/uL (0.00-0.03); Imm Gran Pct Auto 0.4 % (0.0-0.4); Lymphocytes Percent Auto 15.1 % (20-40); Mean Corpuscular HGB Conc 29.5 g/dl (31.0-35.0); Mean Corpuscular Hemoglobin 30.1 pg (27.0-33.0); Mean Corpuscular Volume 102.1 fL (80.0-98.0); Mean Platelet Volume 8.9 fL (9.4-12.3); Monocytes Absolute Auto 0.7 X10*3/uL (0.1-1.2); Monocytes Percent Auto 9.9 % (2-11); Neutrophils Absolute Auto 4.9 x10*3/uL (2.0-8.3); Neutrophils Percent Auto 73.1 % (45-73); Platelet Count 284 X10*3/uL (160-400); Red Blood Count 2.82 X10*6/uL (4.20-5.50); Red Cell Distribution Width 14.9 % (11.0-16.0); White Blood Count 6.8 X10*3/uL (4.8-10.8)
[2023-02-04 13:01] LABS: Alanine Aminotransferase 26 U/L (0-31); Albumin Level 4.4 g/dL (3.5-5.0); Alkaline Phosphatase 63 U/L (39-117); Anion Gap 13 (12-20); Aspartate Amino Transferase 23 U/L (5-31); Bilirubin Total 0.2 mg/dL (0.0-1.0); Blood Urea Nitrogen 29 mg/dL (9-16); Calcium 10.1 mg/dL (8.4-10.2); Carbon Dioxide 24 mmol/L (22-29); Chloride 105 mmol/L (96-108); Estimated Glomerular Filt Rate 56; Glucose Random 98 mg/dL (60-115); Iron 10 mcg/dL (30-160); Percent Iron Saturation 3 % (15-50); Potassium 5.4 mmol/L (3.3-5.1); Sodium 137 mmol/L (135-145); Total Iron Binding Capacity 377 mcg/dL (228-428); Unsaturated Iron Binding 367 ug/dL
[2023-02-04 13:18] LABS: Ferritin 25 ng/mL (10-250)
== END 2023-02-04 11:08 | disposition home or self-care (01) ==
LOC: HO.LAB 11:07
PROVIDERS: Internal Medicine Medical Oncology; PCP Internal Medicine; Visit Provider Internal Medicine
DX: E61.1 Iron deficiency (principal); D64.9 Anemia, unspecified; Z86.010 Personal history of colon polyps
CPT/HCPCS: 36415; 80053; 82728; 83540; 85025; 85027; 99212

== ENCOUNTER 2023-03-19 11:42 | Outpatient (REF) | payer MEDICARE, SELFPAY ==
[2023-03-19 11:52] LABS: MANUAL DIFF FLAG NO
[2023-03-19 12:29] LABS: Basophils Percent Auto 0.4 % (0-2); Eosinophils Absolute Auto 0.1 X10*3/uL (0.0-0.4); Eosinophils Percent Auto 1.8 % (0-4); Hematocrit 26.8 % (37.0-47.0); Imm Gran Abs Auto 0.03 X10*3/uL (0.00-0.03); Imm Gran Pct Auto 0.4 % (0.0-0.4); Lymphocytes Percent Auto 12.9 % (20-40); Mean Corpuscular HGB Conc 29.9 g/dl (31.0-35.0); Mean Corpuscular Hemoglobin 30.2 pg (27.0-33.0); Mean Corpuscular Volume 101.1 fL (80.0-98.0); Mean Platelet Volume 9.3 fL (9.4-12.3); Monocytes Absolute Auto 0.7 X10*3/uL (0.1-1.2); Monocytes Percent Auto 9.4 % (2-11); Neutrophils Absolute Auto 5.7 x10*3/uL (2.0-8.3); Neutrophils Percent Auto 75.1 % (45-73); Platelet Count 300 X10*3/uL (160-400); Red Blood Count 2.65 X10*6/uL (4.20-5.50); Red Cell Distribution Width 13.5 % (11.0-16.0); White Blood Count 7.6 X10*3/uL (4.8-10.8)
[2023-03-19 13:17] LABS: Alanine Aminotransferase 20 U/L (0-31); Albumin Level 4.3 g/dL (3.5-5.0); Alkaline Phosphatase 65 U/L (39-117); Anion Gap 15 (12-20); Aspartate Amino Transferase 22 U/L (5-31); Bilirubin Total 0.1 mg/dL (0.0-1.0); Blood Urea Nitrogen 38 mg/dL (9-16); Calcium 10.6 mg/dL (8.4-10.2); Carbon Dioxide 19 mmol/L (22-29); Chloride 110 mmol/L (96-108); Estimated Glomerular Filt Rate 44; Glucose Random 95 mg/dL (60-115); Potassium 5.4 mmol/L (3.3-5.1); Sodium 139 mmol/L (135-145)
[2023-03-19 13:24] LABS: Ferritin 20 ng/mL (10-250)
== END 2023-03-19 11:43 | disposition home or self-care (01) ==
LOC: HO.LAB 11:42
PROVIDERS: PCP Internal Medicine; Visit Provider Internal Medicine Medical Oncology
DX: D64.9 Anemia, unspecified (principal)
CPT/HCPCS: 36415; 80053; 82728; 85025; 85027

== ENCOUNTER 2023-03-25 13:31 | Outpatient (REF) | payer MEDICARE, SELFPAY | END 2023-03-25 13:32 | disposition home or self-care (01) | LOC: HO.MAMMO 13:31 | PROVIDERS: PCP Internal Medicine; Visit Provider Internal Medicine | DX: Z12.31 Encounter for screening mammogram for malignant neoplasm of breast (principal) | CPT/HCPCS: 77063; 77067 ==

== ENCOUNTER → 2023-03-25 14:15 | Outpatient (BNV) | payer MEDICARE, SELFPAY | PROVIDERS: PCP Internal Medicine; Visit Provider Radiology Diagnostic Radiology | DX: Z12.31 Encounter for screening mammogram for malignant neoplasm of breast (principal) | CPT/HCPCS: 77063; 77067 ==

== ENCOUNTER 2023-03-26 11:23 | Day surgery (SDC) | payer MEDICARE, SELFPAY ==
--- NOTE | 2023-03-25 14:22 | HO.ANESPROP2 ---
Documented by User: Elida Ricks NP 03/25/23 14:25 HPI - Anesthesia Eval Consult details Narrative: 73yo F for Upper Endoscopy s/p EGD and [place] 01/2023 with [facility] Active Problems Active Problems: All Active Problems (Updated 03/25/23 @ 13:26 by Cookie Sauer) Personal history of colonic polyps (Acute) Hypercalcemia (Acute) Iron deficiency (Acute) Anemia (Acute) Family history of deep vein thrombosis (Acute) Past Medical History Medical History Seasonal allergies Hx of glaucoma History of broken leg HTN (hypertension) Arthritis Family History Family History Sister Lung cancer COPD (chronic obstructive pulmonary disease) Breast cancer Afib Father DVT (deep venous thrombosis) Heart disease Family history of problems with anesthesia: No Surgical History Surgical History (Updated 03/26/23 @ 11:40 by Mery Hu RN) Hx of esophagogastroduodenoscopy Hx of colonoscopy Hx of carpal tunnel repair History of Problems with Anesthesia: Yes Social History Social History Household Members: Spouse and Other Alcohol intake: former Patient Tobacco Use Status: Never used Tobacco service: No Meds Allergies Allergy/AdvReac Type Severity Reaction Status Date / Time penicillin G [PENICILLIN G] Allergy Unknown Rash Verified 03/26/23 11:40 Home Medications Medication Instructions Recorded Confirmed Last Taken Type acetaminophen 650 mg 650 mg PO Q8H PRN Pain 10/30/20 03/26/23 03/26/23 History tablet,extended release (Tylenol Arthritis Pain) calcium 100 mg capsule 100 mg PO DAILY 10/30/20 03/26/23 Unknown History fluticasone propionate 50 1 spray intranasal DAILY 10/30/20 03/26/23 01/23/23 History mcg/actuation nasal spray,suspension glucosam 750 mg-chondroi 100 1 tab PO DAILY 10/30/20 03/26/23 Unknown History mg-hyalur 1.65 mg-CF borate 108 mg tablet ([facility] [employer]) lisinopril 10 mg tablet 1 tab PO BID 10/30/20 03/26/23 Unknown History multivitamin 1 tab PO DAILY 10/30/20 03/26/23 Unknown History omega-3 fatty acids 1,000 mg PO DAILY 10/30/20 03/26/23 03/24/23 History vitamin B6-vitamin E-magnesium 1 tab PO DAILY 10/30/20 03/26/23 Unknown History tablet ascorbic acid (vitamin C) 500 mg 500 mg PO DAILY 12/18/22 03/26/23 Unknown History tablet (Vitamin C) ferrous sulfate 325 mg (65 mg 325 mg PO DAILY 12/18/22 03/26/23 03/24/23 History iron) tablet (iron) omeprazole 20 mg delayed 20 mg PO DAILY 12/18/22 03/26/23 01/23/23 History release,disintegrating tablet Exam Exam Date and Time: March 25, 2023 1422 Pertinent Lab Results Pertinent Lab Results: Laboratory Tests 03/19/23 11:51 WBC 7.6 Hgb 8.0 L Hct 26.8 L Plt Count 300 Sodium 139 Potassium 5.4 H Chloride 110 H Carbon Dioxide 19 L BUN 38 H Creatinine 1.19 Assessment and Plan Assessment Anesthesia Assessment: Chart Reviewed Final Anesthetic Review Family History of Problems with Anesthesia: No History of Problems with Anesthesia: Yes Documented by User: Willy Coats MD 03/26/23 18:09 HPI - Anesthesia Eval Consult details Narrative: 73yo F for Upper Endoscopy Persistent Anemia s/p EGD and [place] 01/2023 with [facility] Past Medical History Medical History Seasonal allergies Hx of glaucoma History of broken leg HTN (hypertension) Arthritis Functional capacity: independent ambulation Family History Family History Sister Lung cancer COPD (chronic obstructive pulmonary disease) Breast cancer Afib Father DVT (deep venous thrombosis) Heart disease Surgical History Surgical History (Updated 03/26/23 @ 11:40 by Mery Hu RN) Hx of esophagogastroduodenoscopy Hx of colonoscopy Hx of carpal tunnel repair History of Problems with Anesthesia: No Social History Social History Household Members: Spouse and Other Alcohol intake: former Patient Tobacco Use Status: Never used Tobacco service: No Meds Allergies Allergy/AdvReac Type Severity Reaction Status Date / Time penicillin G [PENICILLIN G] Allergy Unknown Rash Verified 03/26/23 11:40 Home Medications Medication Instructions Recorded Confirmed Last Taken Type acetaminophen 650 mg 650 mg PO Q8H PRN Pain 10/30/20 03/26/23 03/26/23 History tablet,extended release (Tylenol Arthritis Pain) calcium 100 mg capsule 100 mg PO DAILY 10/30/20 03/26/23 Unknown History fluticasone propionate 50 1 spray intranasal DAILY 10/30/20 03/26/23 01/23/23 History mcg/actuation nasal spray,suspension glucosam 750 mg-chondroi 100 1 tab PO DAILY 10/30/20 03/26/23 Unknown History mg-hyalur 1.65 mg-CF borate 108 mg tablet ([employer]) lisinopril 10 mg tablet 1 tab PO BID 10/30/20 03/26/23 Unknown History multivitamin 1 tab PO DAILY 10/30/20 03/26/23 Unknown History omega-3 fatty acids 1,000 mg PO DAILY 10/30/20 03/26/23 03/24/23 History vitamin B6-vitamin E-magnesium 1 tab PO DAILY 10/30/20 03/26/23 Unknown History tablet ascorbic acid (vitamin C) 500 mg 500 mg PO DAILY 12/18/22 03/26/23 Unknown History tablet (Vitamin C) ferrous sulfate 325 mg (65 mg 325 mg PO DAILY 12/18/22 03/26/23 03/24/23 History iron) tablet (iron) omeprazole 20 mg delayed 20 mg PO DAILY 12/18/22 03/26/23 01/23/23 History release,disintegrating tablet Exam Airway Mallampati Class: III Loose/Missing/Broken Teeth: Yes Assessment and Plan Assessment Anesthesia Assessment: Anesthesia Plan Discussed Final Anesthetic Review History of Problems with Anesthesia: No NPO: Yes ASA Class: III Final Preanesthetic Review: Meds/Allgs Chart Reviewed, Consent Obtained/Reviewed and Anes Risks/Benef Reviewed Patient Risk: Intermediate Procedure Risk: Intermediate Anesthetic Plan Anesthetic Plan: MAC: and Agree w/ Assess. and Plan Disposition: Standard PACU
[2023-03-26 11:37] VITALS: BMI 32.0
[2023-03-26] MEDS: Lactated Ringers 1,000 ML 100 ML IVCONT (11:40)
--- NOTE | 2023-03-26 11:46 | MHC.SHP ---
Pre-Procedural Eval Section A Date of Service: 03/26/23 Section B Chief Complaint: Anemia, unspecified Details of Present Illness: hx of GAVE Relevant Family History (Specify if Yes): No Relevant Social History: None Present Medications: see Short Stay Collaborative assessment Medical History: Significant History (Seasonal allergies Hx of glaucoma History of broken leg HTN (hypertension) Arthritis) History of Previous Operations: Relevant previous surgery/procedure and date(s) (colonoscopy) Allergies: Allergies Allergy/AdvReac Type Severity Reaction Status Date / Time penicillin G [PENICILLIN G] Allergy Unknown Rash Verified 03/26/23 11:40 Review of Systems Sugical H&P ROS: Negative: Constitution, Cardiovascular, Respiratory, Neurological, Psychiatric, Hem-Onc, Allergic/Immunologic, Gastrointestinal, Genitourinary, Musculoskeletal, Integumentary, Endocrine and Eyes/Ears/Nose/Throat Exam Surgical H&P Exam: Normal: HEENT, Normal: Heart, Normal: Lungs, Normal: Extremities, Normal: Abdomen, Normal: Skin and Normal: Neurological Plan Diagnosis/Plan: Unchanged I have reviewed the history and physical and performed a pertinent physical examination on my patient. No changes have occurred unless specified. EGD with APC Time Spent With Patient Time: Total time managing care of this patient today ____ minutes.
[2023-03-26 12:02] VITALS: BP 156/56; PULSE 91; RESP 18; TEMP 36.6; O2SAT 100
--- NOTE | 2023-03-26 12:16 | W.PM.OPN ---
Operative Note Operative Note Date of Service: 03/26/23 Narrative: Procedure Description: EGD Indication: hx of GAVE Anesthesia: MAC FLEXIBLE TRANSORAL UPPER GASTROINTESTINAL ENDOSCOPY UPPER ENDOSCOPY Consent: Indications for the procedure and potential complications of bleeding, perforation, reaction to medications and missed diagnosis were discussed with the patient and informed consent was obtained. Instrument: Olympus GIF H 190 J mid size upper endoscope Monitoring: Vital signs and clinical assessment, continuous EKG monitoring, Pulse oximetry, Carbon Dioxide monitoring and blood pressure monitoring were done throughout the procedure. Procedure: The patient was placed in the left lateral decubitis position and pre-procedure medications were administered and a bite block was placed. The endoscope was inserted into the mouth and advanced under direct vision to the third part of duodenum. A careful inspection was made as the upper endoscope was withdrawn including a retroflexed examination of the proximal stomach; Findings and interventions are described below. Findings: Larynx:normal Esophagus: GE junction at 34 cm, diaphragm hiatus at 40 cm, 6 cm hiatal hernia noted, streaky erythema noted within the hernia sac Stomach: Patchy gastric erythema in the antrum consistent with moderate severe GAVE (Gastric antral vascular ectasia) . Hybrid APC was performed effect 40 and 60 W to the erythematous areas and then hemospray applied. Grade 2 flap valve on retroflexed examination of the cardia. Duodenum: Normal bulb and descending duodenum, Intervention: hybrid APC to GAVE Impression/Findings: GAVE hiatal hernia hernial erythema PLAN: carafate 1 g BID change PPI to esomeprazole 20 mg anamika repeat EGD in few months
[2023-03-26 13:06] VITALS: BP 117/41; PULSE 86; RESP 20; TEMP 36.1; O2SAT 99
[2023-03-26 13:25] VITALS: BP 121/47; PULSE 77; RESP 18; TEMP 36.3; O2SAT 98
== END 2023-03-26 14:51 | disposition home or self-care (01) ==
PROVIDERS: PCP Internal Medicine; Visit Provider Internal Medicine Gastroenterology
PROC: 0DJ08ZZ Inspection of Upper Intestinal Tract, Via Natural or Artificial Opening Endoscopic (ICD-10-PCS; CPT 43235; principal; 2023-03-26 13:20)
DX: K31.811 Angiodysplasia of stomach and duodenum with bleeding (principal); K31.9 Disease of stomach and duodenum, unspecified; K44.9 Diaphragmatic hernia without obstruction or gangrene; D64.9 Anemia, unspecified; E61.1 Iron deficiency; I10 Essential (primary) hypertension
CPT/HCPCS: 43235; C2618; J2250; J2371; Q9968

== ENCOUNTER → 2023-03-26 11:23 | Outpatient (BNV) | payer MEDICARE, SELFPAY | PROVIDERS: PCP Internal Medicine; Visit Provider Internal Medicine Gastroenterology | DX: K31.811 Angiodysplasia of stomach and duodenum with bleeding (principal) | CPT/HCPCS: 43255 ==

== ENCOUNTER 2023-04-08 09:15 | Outpatient (AMB) | payer MEDICARE, SELFPAY ==
--- NOTE | 2023-04-08 09:19 | A.OFFVIS_ITS ---
Intake Vital Signs 04/08/23 09:21 Height 4 ft 10 in Weight 149 lb 14.629 oz BMI 31.3 BP 155/62 H Blood Pressure Location Lt brachial Position Sitting Pulse 82 Intake Visit Reasons: s/p egd Intake Note: Loreto presents in the office as a follow up EGD. CC: She states that she had another Dr. This second time around she needs some things. He said that she had to wait an hour to speak to the Dr and she could not wait any longer. The Rx there was mass confusion she states and so she just needs some clarification. 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 01/13/23: Pt reports noticing decreased stamina and shortness of breath on strenuous activities such as shoveling snow in Jun that has progressively worsened over the past few months. She reports finding out about anemia in October when she had blood work through orthopedics and was ntoed to have a Hb of 6.8. Was started on iron supplements and also followed up with Heme. Underwent x2u PRBC transfusion on 12/18. Was taking celebrex for arthritis which she stopped in October, otherwise no NSAID use. Does not report any gastrointestinal complaints to include abd pain, N, V, melena or hematochezia. No change in appetite or unintentional weight loss. Last colo was in her 50s (Dr Marquez) and was given a 10y interval however has been doing annual stool cards instead. No fam hx of CRC in first degree relatives. 01/23/23 EGD/colo: Impression: 1. Normal esophageal mucosa 2. Hiatal hernia 3. GAVE (APC) 4. Normal duodenum (biopsy) 5. Normal colon and terminal ileum mucos a 6. Total 3 polyps removed, 2 retrieved. 7. Internal hemorrhoids Path: A.? Duodenum, biopsy:? Duodenal mucosa with preserved villi and no specific change. B.? Stomach, random, biopsy:? Gastric body mucosa with minimal chronic inactive gastritis; negative for H pylori, intestinal metaplasia and dysplasia; gastric antral vascular ectasia cannot be confirmed.? C.? Colon, transverse, 2 polyps:? Tubular adenomas (2 pieces); negative for hi gh-grade dysplasia and carcinoma. 02/02/23: CT Abd/pel: GASTROINTESTINAL TRACT: The small and large bowel are unremarkable. The appendix is unremarkable.? 02/04/23: Comes in today without any abdominal complaints including abd pain, N,V,D or change in bowel habits. EGD/colo results reviewed. CT results reviewed. 03/26/23: EGD (Dr Mittal) Larynx:normal Esophagus: GE junction at 34 cm, diaphragm hiatus at 40 cm, 6 cm hiatal hernia noted, streaky erythema noted within the hernia sac Stomach: Patchy gastric erythema in the antrum consistent with moderate severe GAVE (Gastric antral vascular ectasia) . Hybrid APC was performed effect 40 and 60 W to the erythematous areas and then hemospray applied. Grade 2 flap valve on retroflexed examination of the cardia. Duodenum: Normal bulb and descending duodenum, Intervention: hybrid APC to GAVE 04/08/23: Comes in for post-EGD follow up. Reports was not able to get nexium covered through her insurance. Also had trouble with sucralfate. Was also apprehensive about previous EGD findings. This was all clarified. Main CC today is nausea and dysgeusia since the EGD otherwise no other issues. Due to see Dr Wong in 2 weeks. [facility] Medical History Seasonal allergies Hx of glaucoma History of broken leg HTN (hypertension) Arthritis Surgical History Hx of esophagogastroduodenoscopy Hx of colonoscopy Hx of carpal tunnel repair Family History Sister Lung cancer COPD (chronic obstructive pulmonary disease) Breast cancer Afib Father DVT (deep venous thrombosis) Heart disease Social History Household Members: Spouse and Other Alcohol intake: former Patient Tobacco Use Status: Never used Tobacco service: No Review of Systems Const All systems reviewed & are unremarkable except as noted in HPI and below Physical Exam Vital Signs: Last Vital Signs Pulse 82 04/08/23 09:21 BP 155/62 H 04/08/23 09:21 BMI result Body Mass Index 31.3 Gen appear: NAD HEENT: nonicteric, no cervical lymphadenopathy Chest: CTA CVS: Regular S1/S2 Abd: soft, nontender, nondistended, bowel sounds + Ext: no peripheral edema Neuro: A/Ox3, noted to move all extremities spontaneously Psych: interacting appropriately Assessment & Plan Assessment & Plan (1) Iron deficiency: Code(s): E61.1 - Iron deficiency (2) Anemia: Code(s): D64.9 - Anemia, unspecified Plan Anemia likely due to GAVE s/p second treatment this month. Reassured that some abd discomfort and nausea may be expected post procedure due to extensive APC performed. This is anticipated to improve over the next 2-4 weeks. From prev visit:Reviewed natural progression and options for endoscopic hemostasis including APC, and EBL if needed. Reviewed that typically this responds well to above but if refractory can consider other options such as cryo. Recommendations: - Check CBC and ferritin - orders placed, pt prefers to get this done in 2 weeks when gets seen by Heme - If H/H steady, will recommend a recheck in 4-6 weeks from then - EGD to be booked in 3 months tentatively but pt was informed that timing may need to be adjusted based on blood work in May. - Ok to continue omeprazole 40mg since nexium not covered - Pt was also reminded to pickle maker sucralfate TABLETS and crush them into a slurry (suspension not covered) - Also had questions re her endoscopy bill breakdown for which she was referred to billing dept Follow up after next EGD Orders: Orders Ferritin Today E61.1 - Iron deficiency Complete Blood Count no Diff Today E61.1 - Iron deficiency Medications: Discontinued esomeprazole magnesium Discontinued Reason: Patient no longer taking 20 mg PO DAILY 90 caps 1RF sucralfate (Carafate) Discontinued Reason: Doctor's Order 10 mL PO BID 1,000 mL 1RF Coding Level of Care Code Est Pt Level 4 (31263) Diagnoses Iron deficiency E61.1 Anemia D64.9
[2023-04-08 09:21] VITALS: BP 155/62; PULSE 82; BMI 31.3
== END 2023-04-08 11:37 | disposition home or self-care (01) ==
PROVIDERS: PCP Internal Medicine; Visit Provider Internal Medicine
DX: E61.1 Iron deficiency (principal); D64.9 Anemia, unspecified
CPT/HCPCS: 99214

== ENCOUNTER → 2023-04-08 09:15 | Outpatient (BNVA) | payer MEDICARE, SELFPAY | PROVIDERS: PCP Internal Medicine; Visit Provider Internal Medicine | DX: D64.9 Anemia, unspecified (principal); E61.1 Iron deficiency; Z98.890 Other specified postprocedural states | CPT/HCPCS: 99212 ==

== ENCOUNTER 2023-04-27 09:03 | Outpatient (REF) | payer MEDICARE, SELFPAY ==
[2023-04-27 11:26] LABS: MANUAL DIFF FLAG NO
[2023-04-27 11:44] LABS: Basophils Percent Auto 0.4 % (0-2); Eosinophils Percent Auto 0.5 % (0-4); Hematocrit 31.2 % (37.0-47.0); Hemoglobin 9.6 g/dl (12.0-16.0); Imm Gran Abs Auto 0.05 X10*3/uL (0.00-0.03); Imm Gran Pct Auto 0.6 % (0.0-0.4); Lymphocytes Absolute Auto 1.2 X10*3/uL (1.2-4.9); Lymphocytes Percent Auto 15.3 % (20-40); Mean Corpuscular HGB Conc 30.8 g/dl (31.0-35.0); Mean Corpuscular Hemoglobin 29.1 pg (27.0-33.0); Mean Corpuscular Volume 94.5 fL (80.0-98.0); Mean Platelet Volume 9.1 fL (9.4-12.3); Monocytes Percent Auto 12.9 % (2-11); Neutrophils Absolute Auto 5.6 x10*3/uL (2.0-8.3); Neutrophils Percent Auto 70.3 % (45-73); Platelet Count 261 X10*3/uL (160-400)
[2023-04-27 12:52] LABS: Alanine Aminotransferase 26 U/L (0-31); Albumin Level 4.5 g/dL (3.5-5.0); Alkaline Phosphatase 81 U/L (39-117); Anion Gap 14 (12-20); Aspartate Amino Transferase 19 U/L (5-31); Bilirubin Total 0.1 mg/dL (0.0-1.0); Blood Urea Nitrogen 43 mg/dL (9-16); Calcium 9.9 mg/dL (8.4-10.2); Carbon Dioxide 20 mmol/L (22-29); Chloride 112 mmol/L (96-108); Cholesterol 184 mg/dL (<200); Estimated Glomerular Filt Rate 34; Glucose Fasting 88 mg/dL (60-99); HDL Cholesterol 46 mg/dL (>40); Iron 19 mcg/dL (30-160); LDL Cholesterol Calculated 114 mg/dL (<100); Percent Iron Saturation 5 % (15-50); Potassium 5.7 mmol/L (3.3-5.1); Sodium 140 mmol/L (135-145); Total Iron Binding Capacity 356 mcg/dL (228-428); Total Protein 7.6 g/dL (6.5-8.0); Triglycerides 124 mg/dL (<150); Unsaturated Iron Binding 337 ug/dL
[2023-04-27 13:07] LABS: Vitamin D 25-OH Total 85.2 ng/mL (>30)
== END 2023-04-27 09:04 | disposition home or self-care (01) ==
LOC: HO.HMGCLDS 09:03
PROVIDERS: PCP Internal Medicine; Visit Provider Internal Medicine
DX: M10.9 Gout, unspecified (principal); I10 Essential (primary) hypertension; M85.80 Other specified disorders of bone density and structure, unspecified site; E78.00 Pure hypercholesterolemia, unspecified; D64.9 Anemia, unspecified
CPT/HCPCS: 36415; 80053; 80061; 82306; 83540; 85025

== ENCOUNTER 2023-10-22 15:24 | Emergency (ER) | payer MEDICARE, SELFPAY ==
[2023-10-22 16:19] VITALS: BP 183/66; PULSE 89; RESP 16; TEMP 37.3; O2SAT 99; BMI 33.1
--- NOTE | 2023-10-22 16:20 | ED.GENADULT ---
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 Patient states that she was told by her primary care doctor, Dr. Li, called and informed her that her potassium is critically high and needs to come to the ER. Patient states that she has not symptoms at this time. Patient states that she follows with Dr. 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 Patient states that she eats multiple salads per day that are full of dark leafy greens. Patient denies any dizziness, lightheadedness, abdominal pain, nausea, vomiting, fever, chills, blurry vision, double vision, loss of vision, chest pain, difficulty breathing, shortness of breath, back pain, night sweats, pain with urination, increased urinary frequency, increased urinary urgency, blood in her urine or stool, syncope or a near syncopal episode, recent trauma or falls, bowel incontinence, bladder incontinence, bowel retention, bladder retention, or any other complaints at this time. Relieving factors: none Exacerbating factors: none Associated symptoms: denies other symptoms Treatments prior to arrival: none Related Data Home Medications ?Medication ?Instructions ?Recorded ?Confirmed fluticasone propionate 50 1 spray intranasal DAILY 10/30/20 08/25/23 mcg/actuation nasal spray,suspension lisinopril 10 mg tablet 1 tab PO BID 10/30/20 08/25/23 omega-3 fatty acids 1,000 mg PO DAILY 10/30/20 08/25/23 vitamin B6-vitamin E-magnesium 1 tab PO DAILY 10/30/20 08/25/23 tablet ascorbic acid (vitamin C) 500 mg 500 mg PO DAILY 12/18/22 08/25/23 tablet (Vitamin C) ferrous sulfate 325 mg (65 mg 325 mg PO DAILY 12/18/22 08/25/23 iron) tablet (iron) famotidine 40 mg tablet 40 mg PO BID 05/25/23 08/25/23 Allergies Allergy/AdvReac Type Severity Reaction Status Date / Time penicillin G [PENICILLIN G] Allergy Unknown Rash Verified 10/22/23 16:31 Review of Systems Constitutional: Constitutional: Reports no additional constitutional complaints, Denies chills, Denies fever(s) and Denies night sweats Eyes: Eyes: Reports no additional eye complaints, Denies blurry vision, Denies change in vision, Denies diplopia, Denies eye discharge, Denies loss of vision and Denies eye pain ENT: Denies dizziness Cardiovascular: Cardiovascular: Reports no additional cardiovascular complaints, Denies chest pain, Denies lightheadedness, Denies Loss of Consciousness and Denies dyspnea Respiratory: Respiratory: Reports no additional respiratory complaints and Denies dyspnea Gastrointestinal: Gastrointestinal: Reports no additional gastrointestinal complaints, Denies abdominal pain, Denies melena, Denies hematochezia, Denies change in bowel habits and Denies change in stool character Genitourinary: Genitourinary: Denies hematuria, Denies urinary frequency, Denies dysuria, Denies urinary incontinence, Denies urinary hesitancy and Denies urinary urgency Musculoskeletal: Musculoskeletal: Reports no additional musculoskeletal complaints, Denies numbness and Denies tingling Neurologic: Denies dizziness, Denies loss of vision, Denies numbness and Denies tingling Psychiatric: Psychiatric: Reports no additional psychiatric complaints Endocrine: Endocrine: Reports no additional endocrine complaints Hematologic/Lymphatic: Hematologic/Lymphatic: Reports no additional hematologic/lymphatic complaints Allergic/Immunologic: Allergic/Immunologic: Reports no additional allergic/immunologic complaints [facility] Past Medical History Attestation statement: The following information was validated with the patient. (all information validated with the patient's son) Source: old records reviewed, obtained from family (patient's son provided additional history and confirmed the history provided by the patient.) and nursing notes reviewed Medical History Seasonal allergies Hx of glaucoma History of broken leg HTN (hypertension) Arthritis Surgical History Hx of esophagogastroduodenoscopy Hx of colonoscopy Hx of carpal tunnel repair Family History Family History Sister Lung cancer COPD (chronic obstructive pulmonary disease) Breast cancer Afib Father DVT (deep venous thrombosis) Heart disease Social History Social History Household Members: Spouse and Other Alcohol intake: former Patient Tobacco Use Status: Never used Tobacco Advance Directives: Yes Advance Directives Information Provided: No Advance Directives on File: No Do you have a plan to hurt others: No Plan service: No Physical Exam ED Vital Signs: Vital Signs - 24 hr 10/22/23 16:19 10/22/23 18:58 Temperature 99.1 F 97.9 F Pulse Rate 89 77 Respiratory Rate 16 20 Blood Pressure 183/66 H 161/48 H Pulse Oximetry 99 99 Oxygen Delivery Method Room Air Room Air BMI result Body Mass Index 33.1 Const General: cooperative, no acute distress, alert and awake Nutritional Appearance: well nourished Orientation/consciousness: patient oriented x3 Limitations: no limitations HENMT Head: Yes normal to inspection and Yes atraumatic Ears: hearing grossly normal bilaterally and external ears normal General nose exam: Normal external nose present, no nasal discharge noted and no epistaxis Face and sinus: Yes normal facial exam, No abrasion and No laceration Mouth: Normal oral and palatal mucosa present, no drooling and no muffled voice Eyes General: appearance normal, both eyes and all related structures Periorbital: periorbital findings normal Eyelids: Yes eyelids normal Conjunctivae: conjunctivae normal Pupils: Equal, round and reactive pupils present EOM: EOMs intact bilaterally Neck Neck: Yes normal visual inspection, Yes full ROM and Yes no lymphadenopathy Chest Chest palpation & inspection: normal inspection of the chest Resp Effort & Inspection: normal respiratory effort and able to speak in complete sentences GI Inspection: Yes normal to inspection Neuro General: patient oriented x3 and moves all extremities Cranial nerves: Yes Equal, round and reactive pupils present Cognition (Neuro): normal cognition Motor exam (neuro): 5/5 motor strength present throughout Sensory Exam: Normal double simultaneous stimulation for sensation Coordination: [id number] test normal Extrem General: Yes normal to inspection, Yes full ROM and Yes capillary refill normal Psych Appearance: grossly normal Mental Status: mental status grossly normal Affect: normal affect Attitude: cooperative Thought process: Normal thought process present Thought content: Normal thought content present Insight: Good insight present (Psych) Course Course Course Narrative: RME performed by Namita Rodriguez PA-C. Patient is a 73 year old assigned female at presenting to the emergency department with an elevated potassium. Patient was sent in by Dr. Li for an elevated potassium. Detailed physical exam and review of systems are deferred to the clinician oncology. EKG ordered. Patient placed back in the waiting room pending room availability and results. 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 Patient's physical exam was unremarkable. Patient's blood work showed an elevated potassium of 6.3 but were otherwise unremarkable. When reviewing the patient's previous lab results, she has had chronic hyperkalemia since at least 08/2019. Patient's EKG was unremarkable. I spoke to the dioramist salesperson floor coverings, Dr. Barney, who recommended 10gm of Lokelam, discharge, repeat potassium tomorrow, and out patient follow up. I explained my physical exam findings as well as all test results to the patient and the patient's son. I answered all questions asked by the patient and the patient's son. I stressed the importance of the patient taking her medication as prescribed. I stressed the importance of the patient following up with her primary care provider and a dioramist. I stressed the importance of the patient returning to the emergency department immediately if her symptoms were to worsen or if she were to develop any dizziness, shortness of breath, difficulty breathing, chest pain, blurry vision, loss of vision, nausea, vomiting, abdominal pain, fever, chills, back pain, or any other complaints. Patient and the patient's son verbalized agreement and understanding with this treatment plan and discharge. Differential Diagnosis Differential Diagnoses: The differential diagnosis associated with the presentation includes Hyperkalemia Electrolyte imbalance Hypomagnesemia Admission/Observation Consideration of admission/observation: Escalation of care including admission/observation considered Patient would have been admitted to the hospital had her work up had any findings where hospital admission was appropriate and her clinical presentation warranted hospital admission. Consult Healthcare Provider Management of the patient was discussed with: Chemist Inorganic (spoke to the dioramist as noted in the MDM Rationale portion of this note.) Lab Data [facility] [place] Lab Attestation statement: I reviewed the patient's lab results. My interpretation of these results are in the [facility] [place] Rationale portion of this note. 10/22/23 17:11 Labs: Lab Results 10/22/23 Range/Units 17:11 Sodium 139 (135-145) mmol/L Potassium 6.3 H* (3.3-5.1) mmol/L Chloride 109 H (96-108) mmol/L Carbon Dioxide 19 L (22-29) mmol/L Anion Gap 17 (12-20) BUN 43 H (9-16) mg/dL Creatinine 1.29 (0.5-1.4) mg/dL Estim Creat Clear Calc 30.3 Estimated GFR 40 Random Glucose 112 (60-115) mg/dL Calcium 10.1 (8.4-10.2) mg/dL Magnesium 2.1 (1.6-2.6) mg/dL Total Bilirubin 0.3 (0.0-1.0) mg/dL AST 25 (5-31) U/L ALT 29 (0-31) U/L Alkaline Phosphatase 65 (39-117) U/L Total Protein 7.7 (6.5-8.0) g/dL Albumin 4.8 (3.5-5.0) g/dL Independent Interpretation I performed an independent interpretation of an: EKG Interpretation: Vent. Rate: 089 BPM Atrial Rate: 089 BPM P-R Int: 116 ms QRS Dur: 120 ms QT Int: 352 ms P-R-T Axes: 075 000 039 degrees QTc Int: 428 ms Normal sinus rhythm Right bundle branch block Abnormal ECG No previous ECGs available DD/ 1642 Independent Historian Clinical information obtained from an independent historian. History obtained from or confirmed by: Other (patient's son provided additional history and confirmed the history provided by the patient.) External Record Review External record reviewed: Office record, Outpatient record, Prior outpatient labs and Primary care record Chronic Conditions Patient?s care impacted by: Hypertension Critical Care Time Critical Care Time Critical Care Time: Yes Total Critical Care Time: 48 Attestation: I spent 48 minutes of Critical Care Time with this patient. This does not include time spent on separately reported billable procedures. Discharge Plan Discharge Clinical Impression: Hyperkalemia Patient Disposition: Home, Self-Care Instructions: Potassium Content of Foods List (ED), Hyperkalemia (ED) Additional Instructions: Please return to the hospital, tomorrow (10/23/2023), for a repeat potassium level to be drawn. You must bring the written order form I have given you today. The results will be sent to your primary care provider who has also been sent a copy of your visit today in the ER. Follow up with your primary care provider and with the kidney specialists. Return to the emergency department immediately if you develop any dizziness, shortness of breath, difficulty breathing, chest pain, blurry vision, loss of vision, nausea, vomiting, abdominal pain, fever, chills, back pain, or any other complaints. Prescriptions: No Action lisinopril 10 mg tablet 1 tab PO BID fluticasone propionate 50 mcg/actuation spray,suspension 1 spray intranasal DAILY [place] 3 Capsule 1,000 mg PO DAILY vitamin B6-vitamin E-magnesium Tablet 1 tab PO DAILY ascorbic acid (vitamin C) [Vitamin C] 500 mg Tablet 500 mg PO DAILY ferrous sulfate [iron] 325 mg (65 mg iron) Tablet 325 mg PO DAILY famotidine 40 mg Tablet 40 mg PO BID Referrals: [facility] [Provider Group] Richard Li MD [Primary Care Provider] - Interventions: ED Discharge Assessment Last Done: 10/22/23 18:58 Discharge Date/Time: 10/22/23 18:59 Print Language: Micronesian
--- NOTE | 2023-10-22 16:29 | ECG_ITS ---
Test Reason : abnormal labs Blood Pressure : / mmHG Vent. Rate : 089 BPM Atrial Rate : 089 BPM P-R Int : 116 ms QRS Dur : 120 ms QT Int : 352 ms P-R-T Axes : 075 000 039 degrees QTc Int : 428 ms Normal sinus rhythm Right bundle branch block Abnormal ECG No previous ECGs available Referred By: Namita Rodriguez Electronically Signed By:FERDINAND CULLEN MD
[2023-10-22 17:37] LABS: Alanine Aminotransferase 29 U/L (0-31); Albumin Level 4.8 g/dL (3.5-5.0); Alkaline Phosphatase 65 U/L (39-117); Anion Gap 17 (12-20); Aspartate Amino Transferase 25 U/L (5-31); Bilirubin Total 0.3 mg/dL (0.0-1.0); Blood Urea Nitrogen 43 mg/dL (9-16); Calcium 10.1 mg/dL (8.4-10.2); Carbon Dioxide 19 mmol/L (22-29); Chloride 109 mmol/L (96-108); Creatinine Clr Calc Pharmacy 30.3; Estimated Glomerular Filt Rate 40; Glucose Random 112 mg/dL (60-115); Magnesium 2.1 mg/dL (1.6-2.6); Potassium 6.3 mmol/L (3.3-5.1); Sodium 139 mmol/L (135-145); Total Protein 7.7 g/dL (6.5-8.0)
[2023-10-22] MEDS: Sodium Zirconium Cyclosilicate 10 GM POWD.PACK PO (18:22)
[2023-10-22 18:58] VITALS: BP 161/48; PULSE 77; RESP 20; TEMP 36.6; O2SAT 99
== END 2023-10-22 18:59 | disposition home or self-care (01) ==
PROVIDERS: Physician Assistant Medical; Emergency Provider Emergency Medicine; PCP Internal Medicine
DX: E87.5 Hyperkalemia (principal); I10 Essential (primary) hypertension; K31.819 Angiodysplasia of stomach and duodenum without bleeding; Z79.899 Other long term (current) drug therapy
CPT/HCPCS: 36415; 80053; 83735; 93005; 99283

== ENCOUNTER → 2023-10-22 16:29 | Outpatient (BNV) | payer MEDICARE, SELFPAY | PROVIDERS: Emergency Provider Emergency Medicine; PCP Internal Medicine; Visit Provider Internal Medicine Cardiovascular Disease | DX: R94.31 Abnormal electrocardiogram [ECG] [EKG] (principal) | CPT/HCPCS: 93010 ==

== ENCOUNTER 2023-10-23 11:58 | Outpatient (REF) | payer MEDICARE, SELFPAY ==
[2023-10-23 13:30] LABS: Alanine Aminotransferase 26 U/L (0-31); Albumin Level 4.6 g/dL (3.5-5.0); Alkaline Phosphatase 56 U/L (39-117); Anion Gap 15 (12-20); Aspartate Amino Transferase 19 U/L (5-31); Bilirubin Total 0.4 mg/dL (0.0-1.0); Blood Urea Nitrogen 38 mg/dL (9-16); Calcium 10.2 mg/dL (8.4-10.2); Carbon Dioxide 22 mmol/L (22-29); Chloride 107 mmol/L (96-108); Estimated Glomerular Filt Rate 44; Glucose Random 99 mg/dL (60-115); Potassium 5.3 mmol/L (3.3-5.1); Sodium 139 mmol/L (135-145); Total Protein 7.3 g/dL (6.5-8.0)
== END 2023-10-23 11:59 | disposition home or self-care (01) ==
LOC: HO.LAB 11:58
PROVIDERS: PCP Internal Medicine; Visit Provider Physician Assistant Medical
DX: E87.6 Hypokalemia (principal)
CPT/HCPCS: 36415; 80053

== ENCOUNTER 2023-10-27 12:04 | Outpatient (AMB) | payer MEDICARE, SELFPAY ==
[2023-10-27 12:07] VITALS: BP 170/54; PULSE 91; O2SAT 97; BMI 32.3
--- NOTE | 2023-10-27 12:07 | HO.NEPHOV_ITS ---
Vital Signs 10/27/23 12:07 10/27/23 12:57 Height 4 ft 9 in Weight 149 lb 6 oz BMI 32.3 BP 170/54 H 135/70 Blood Pressure Location Lt brachial Lt brachial Position Sitting Sitting Pulse 91 Pulse Source Pulse Oximeter Pulse Oximetry (%) 97 Oxygen Delivery Method Room Air Intake Visit Reasons: Hyperkalemia Automatic Spreader Operator Required: No Accompanied by: Self / Same As Patient Allergies penicillin G [PENICILLIN G] Allergy (Unknown, Verified 10/27/23 12:10) Rash HPI Comments Details: Loreto is a 72-year-old woman with a history of longstanding hypertension and she has been on lisinopril 10 mg b.i.d.. Chronic NSAID use for several years for cramps and severe arthritis Recently she was found to have severe hyperkalemia and was asked to go to the ER. Hyperkalemia was medically corrected and she has been referred for further evaluation. She is chronic kidney disease with a baseline creatinine of around 1.2 mg/dL with a corresponding EGFR of about 40 mL/minute. Upon reviewing the labs it appears that the creatinine has been relatively stable for the last few years. She has had recurrent episodes of hyperkalemia. She has not been on any potassium restriction. Other significant medical history includes iron deficiency anemia and history of GAVE, significant arthritis Today she has no specific complaints. No headache nausea or vomiting. No shortness of breath no cough. No edema. No dysuria urgency frequency or hematuria. No fever no rash. [facility], [facility] Medical History Seasonal allergies Hx of glaucoma History of broken leg HTN (hypertension) Arthritis Surgical History Hx of esophagogastroduodenoscopy Hx of colonoscopy Hx of carpal tunnel repair Family History Sister Lung cancer COPD (chronic obstructive pulmonary disease) Breast cancer Afib Father DVT (deep venous thrombosis) Heart disease Social History Household Members: Spouse and Other Alcohol intake: former Patient Tobacco Use Status: Never used Tobacco service: No Physical Exam Vital Signs: Last Vital Signs Pulse 91 10/27/23 12:07 BP 135/70 10/27/23 12:57 Pulse Ox 97 10/27/23 12:07 Oxygen Delivery Method Room Air 10/27/23 12:07 BMI result Body Mass Index 32.3 Const Other: Initial blood pressure was 180/84 mm Hg 30 minutes later blood pressure was rechecked which was 134/70 mm Hg. General: anxious Nutritional Appearance: well nourished Orientation/consciousness: patient oriented x3 HEENT Head: No normal to inspection Mouth: moist mucous membranes Neck Neck: Yes supple and Yes no JVD Resp Auscultation: clear to auscultation bilaterally, no rales and rub present Cardio Jugular venous distension: no JVD Palpation: no palpable S3 and no palpable S4 Heart sounds: no rubs GI Palpation (GI): Soft to palpation and nontender Percussion: No Fluid wave present General: Yes no CVA tenderness Back/Spine/Pelvis Back: no CVA tenderness Skin General skin exam: no rashes or lesions noted Neuro General: patient oriented x3 Extrem General: Yes no pedal edema and No clubbing Results Reviewed Nephrology Results: Hgb 10.6 g/dl (12.0-16.0) L 10/22/23 WBC 7.9 X10*3/uL (4.8-10.8) 10/22/23 Plt Count 263 X10*3/uL (160-400) 10/22/23 Sodium 139 mmol/L (135-145) 10/23/23 Potassium 5.3 mmol/L (3.3-5.1) H 10/23/23 Chloride 107 mmol/L (96-108) 10/23/23 Carbon Dioxide 22 mmol/L (22-29) 10/23/23 BUN 38 mg/dL (9-16) H 10/23/23 Creatinine 1.20 mg/dL (0.5-1.4) 10/23/23 Calcium 10.2 mg/dL (8.4-10.2) 10/23/23 PTH Intact 24 pg/mL (16-77) 12/18/22 Assessment & Plan Assessment & Plan (1) CKD (chronic kidney disease) stage 3, GFR 30-59 ml/min: Code(s): N18.30 - Chronic kidney disease, stage 3 unspecified Category: Medical (2) Hypercalcemia: Code(s): E83.52 - Hypercalcemia Category: Medical (3) Anemia: Code(s): D64.9 - Anemia, unspecified Category: Medical (4) Hyperkalemia: Code(s): E87.5 - Hyperkalemia Category: Medical Plan 71-year-old woman with history of hypertension, stage 3 chronic kidney disease at baseline with a creatinine of 1.2 mg/dL, significant arthritis and iron deficiency anemia. She had significant hyperkalemia which required medical management. Chronic kidney disease is probably due to hypertension nephrosclerosis. Chronic NSAID use could have led to NSAID nephropathy. Other possibilities including obstructive uropathy should be considered. Glomerulonephritis/interstitial disease seem unlikely. Hyperkalemia is probably due to increased potassium intake in the setting of using JIMI inhibitors in a patient with chronic kidney disease. History of hypertension. He initially office reading was elevated. Subsequent readings were much better. She clearly has a component of anxiety which is aggravating her blood pressure. History of hypercalcemia this could be due to excessive calcium intake. Recommendations Discontinue lisinopril 10 mg b.i.d. due to hyperkalemia. Add amlodipine 5 mg q.d. for control blood pressure. Avoid NSAIDs Increase oral fluid intake. Obtain renal ultrasonogram to assess echogenicity and to rule out hydronephrosis. Recheck renal panel in the next 1 week to see if any improvement in the renal function and serum potassium after discontinuing lisinopril. Discontinue calcium supplementation and vitamin-D supplementations. Check PTH Check hemoglobin along with iron, ferritin and TIBC. Keep on iron supplementation Returned to the office in the next few weeks once the workup is completed Total time spent 55 minutes Orders: Orders Parathyroid Hormone Intact 1 Week E87.5 - Hyperkalemia, N18.30 - Chronic kidney disease, stage 3 unspecified Phosphorus 1 Week E87.5 - Hyperkalemia, N18.30 - Chronic kidney disease, stage 3 unspecified Creatinine Urine 1 Week E87.5 - Hyperkalemia, N05.9 - Unspecified nephritic syndrome with unspecified morphologic changes, N18.30 - Chronic kidney disease, stage 3 unspecified Sodium Urine Random 1 Week E87.5 - Hyperkalemia, N18.30 - Chronic kidney disease, stage 3 unspecified, N18.9 - Chronic kidney disease, unspecified IRON PROFILE 05/21/24 D64.9 - Anemia, unspecified Ferritin 1 Week D64.9 - Anemia, unspecified Complete Blood Count Auto Diff 1 Week E87.5 - Hyperkalemia, N18.30 - Chronic kidney disease, stage 3 unspecified Comprehensive Met. Panel 1 Week E87.5 - Hyperkalemia, N18.30 - Chronic kidney disease, stage 3 unspecified, N18.9 - Chronic kidney disease, unspecified UA and rflx microscopic 10/27/23 E87.5 - Hyperkalemia, N18.30 - Chronic kidney disease, stage 3 unspecified Vitamin D 25-OH (D2 and D3) 1 Week E83.52 - Hypercalcemia, N18.30 - Chronic kidney disease, stage 3 unspecified Medications: New amlodipine 5 mg PO DAILY 30 tabs 0RF Coding Level of Care Code New Pt Level 5 (21556) Diagnoses CKD (chronic kidney disease) stage 3, GFR 30-59 ml/min N18.30 Hypercalcemia E83.52 Anemia D64.9 Hyperkalemia E87.5
[2023-10-27 12:57] VITALS: BP 135/70
== END 2023-10-27 13:10 | disposition home or self-care (01) ==
PROVIDERS: PCP Internal Medicine; Visit Provider Internal Medicine Hypertension Specialist
DX: N18.30 Chronic kidney disease, stage 3 unspecified (principal); E83.52 Hypercalcemia; D64.9 Anemia, unspecified; E87.5 Hyperkalemia
CPT/HCPCS: 99205

== ENCOUNTER → 2023-10-27 12:04 | Outpatient (BNVA) | payer MEDICARE, SELFPAY | PROVIDERS: PCP Internal Medicine; Visit Provider Internal Medicine Hypertension Specialist | DX: N18.30 Chronic kidney disease, stage 3 unspecified (principal); E83.52 Hypercalcemia; E87.5 Hyperkalemia; D64.9 Anemia, unspecified | CPT/HCPCS: 99202 ==

== ENCOUNTER 2023-11-13 11:52 | Outpatient (REF) | payer MEDICARE, SELFPAY ==
[2023-11-13 12:10] LABS: MANUAL DIFF FLAG NO
[2023-11-13 12:33] LABS: Basophils Percent Auto 0.4 % (0-2); Eosinophils Absolute Auto 0.1 X10*3/uL (0.0-0.4); Eosinophils Percent Auto 0.9 % (0-4); Hematocrit 34.1 % (37.0-47.0); Hemoglobin 11.1 g/dl (12.0-16.0); Imm Gran Abs Auto 0.02 X10*3/uL (0.00-0.03); Imm Gran Pct Auto 0.4 % (0.0-0.4); Lymphocytes Percent Auto 19.4 % (20-40); Mean Corpuscular HGB Conc 32.6 g/dl (31.0-35.0); Mean Corpuscular Hemoglobin 32.4 pg (27.0-33.0); Mean Corpuscular Volume 99.4 fL (80.0-98.0); Mean Platelet Volume 8.5 fL (9.4-12.3); Monocytes Absolute Auto 0.6 X10*3/uL (0.1-1.2); Monocytes Percent Auto 11.8 % (2-11); Neutrophils Absolute Auto 3.6 x10*3/uL (2.0-8.3); Neutrophils Percent Auto 67.1 % (45-73); Platelet Count 233 X10*3/uL (160-400); Red Blood Count 3.43 X10*6/uL (4.20-5.50); Red Cell Distribution Width 12.9 % (11.0-16.0); White Blood Count 5.4 X10*3/uL (4.8-10.8)
[2023-11-13 13:09] LABS: Parathyroid Hormone Intact 56.7 pg/mL (8.7-77.1)
[2023-11-13 13:13] LABS: Alanine Aminotransferase 22 U/L (0-31); Albumin Level 4.5 g/dL (3.5-5.0); Alkaline Phosphatase 68 U/L (39-117); Anion Gap 13 (12-20); Aspartate Amino Transferase 22 U/L (5-31); Bilirubin Total 0.3 mg/dL (0.0-1.0); Blood Urea Nitrogen 25 mg/dL (9-16); Calcium 10.4 mg/dL (8.4-10.2); Carbon Dioxide 28 mmol/L (22-29); Chloride 105 mmol/L (96-108); Estimated Glomerular Filt Rate 47; Glucose Random 103 mg/dL (60-115); Iron 36 mcg/dL (30-160); Percent Iron Saturation 11 % (15-50); Phosphorus 3.4 mg/dL (2.7-4.5); Sodium 141 mmol/L (135-145); Total Iron Binding Capacity 330 mcg/dL (228-428); Total Protein 7.2 g/dL (6.5-8.0); Unsaturated Iron Binding 294 ug/dL
[2023-11-13 13:28] LABS: Ferritin 32 ng/mL (10-250)
[2023-11-13 14:19] LABS: Appearance Urine Clear; Color Urine Yellow; Glucose Urine UA Negative (Negative); Leukocyte Esterase Urine Negative (Negative); Nitrite Urine Negative (Negative); Urine Blood Negative (Negative); Urine Ketones Negative (Negative); Urine Protein Negative (Neg-Trace)
[2023-11-13 14:57] LABS: Creatinine Urine 83.22 mg/dL
[2023-11-17 13:19] LABS: Vitamin D 25-OH, D2 <4 ng/mL; Vitamin D 25-OH, D3 53 ng/mL; Vitamin D 25-OH, Total 53 ng/mL (30-100)
== END 2023-11-13 11:53 | disposition home or self-care (01) ==
LOC: HO.LAB 11:52
PROVIDERS: PCP Internal Medicine; Visit Provider Internal Medicine Hypertension Specialist
DX: E83.52 Hypercalcemia (principal); N18.30 Chronic kidney disease, stage 3 unspecified; E78.5 Hyperlipidemia, unspecified; D64.9 Anemia, unspecified; N05.9 Unspecified nephritic syndrome with unspecified morphologic changes; D63.1 Anemia in chronic kidney disease
CPT/HCPCS: 36415; 80053; 81003; 82306; 82570; 82728; 83540; 83970; 84100; 84300; 85025

== ENCOUNTER 2023-11-17 11:54 | Outpatient (AMB) | payer MEDICARE, SELFPAY ==
[2023-11-17 11:59] VITALS: BP 152/60; PULSE 84; O2SAT 99; BMI 32.2
--- NOTE | 2023-11-17 11:59 | HO.NEPHOV ---
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. Chronic NSAID use for several years for cramps and severe arthritis Recently she was found to have severe hyperkalemia and was asked to go to the ER. Hyperkalemia was medically corrected and she has been referred for further evaluation. She is chronic kidney disease with a baseline creatinine of around 1.2 mg/dL with a corresponding EGFR of about 40 mL/minute. Upon reviewing the labs it appears that the creatinine has been relatively stable for the last few years. She has had recurrent episodes of hyperkalemia. She has not been on any potassium restriction. Other significant medical history includes iron deficiency anemia and history of GAVE, significant arthritis Today she has no specific complaints. No headache nausea or vomiting. No shortness of breath no cough. No edema. No dysuria urgency frequency or hematuria. No fever no rash. 11/17/23 Tolerating Amlodipine BP seems acceptable Blood pressure was checked multiple times. Her automatic cuff was used which revealed blood pressure 170/70 mm Hg [facility] Medical History Seasonal allergies Hx of glaucoma History of broken leg HTN (hypertension) Arthritis Surgical History Hx of esophagogastroduodenoscopy Hx of colonoscopy Hx of carpal tunnel repair Family History Sister Lung cancer COPD (chronic obstructive pulmonary disease) Breast cancer Afib Father DVT (deep venous thrombosis) Heart disease Social History Household Members: Spouse and Other Alcohol intake: former Patient Tobacco Use Status: Never used Tobacco service: No Physical Exam Vital Signs: Last Vital Signs Pulse 84 11/17/23 11:59 BP 152/60 H 11/17/23 11:59 Pulse Ox 99 11/17/23 11:59 Oxygen Delivery Method Room Air 11/17/23 11:59 BMI result Body Mass Index 32.2 Const General: comfortable; No acute distress Orientation/consciousness: patient oriented x3 Eyes General: appearance normal, both eyes and all related structures Visual Irby: normal visual irby by confrontation Neck Neck: Yes supple and Yes no JVD Resp Effort & Inspection: normal respiratory effort and respiratory effort not decreased Auscultation: rhonchi Cardio Palpation: no palpable S3 and no palpable S4 Heart sounds: no rubs GI Inspection: Yes normal to inspection Palpation (GI): Soft to palpation Percussion: Yes normal to percussion Auscultation: normal bowel sounds General: Yes no CVA tenderness Back/Spine/Pelvis Back: no CVA tenderness Skin General skin exam: no petechiae and no purpura Neuro General: patient oriented x3 and no focal motor deficits Extrem General: No clubbing and No edema Results Reviewed Nephrology Results: Hgb 11.1 g/dl (12.0-16.0) L 11/13/23 WBC 5.4 X10*3/uL (4.8-10.8) 11/13/23 Plt Count 233 X10*3/uL (160-400) 11/13/23 Sodium 141 mmol/L (135-145) 11/13/23 Potassium 5.0 mmol/L (3.3-5.1) 11/13/23 Chloride 105 mmol/L (96-108) 11/13/23 Carbon Dioxide 28 mmol/L (22-29) 11/13/23 BUN 25 mg/dL (9-16) H 11/13/23 Creatinine 1.13 mg/dL (0.5-1.4) 11/13/23 Calcium 10.4 mg/dL (8.4-10.2) H 11/13/23 Phosphorus 3.4 mg/dL (2.7-4.5) 11/13/23 PTH Intact 56.7 pg/mL (8.7-77.1) 11/13/23 Urine Protein Negative mg/dL (Neg-Trace) 11/13/23 Urine Creatinine 83.22 mg/dL 11/13/23 Assessment & Plan Assessment & Plan (1) CKD (chronic kidney disease) stage 3, GFR 30-59 ml/min: Code(s): N18.30 - Chronic kidney disease, stage 3 unspecified Category: Medical (2) Hypercalcemia: Code(s): E83.52 - Hypercalcemia Category: Medical (3) Anemia: Code(s): D64.9 - Anemia, unspecified Category: Medical (4) Hyperkalemia: Code(s): E87.5 - Hyperkalemia Category: Medical Plan 71-year-old woman with history of hypertension, stage 3 chronic kidney disease at baseline with a creatinine of 1.2 mg/dL, significant arthritis and iron deficiency anemia. She had significant hyperkalemia which required medical management. Chronic kidney disease is probably due to hypertension nephrosclerosis. Chronic NSAID use could have led to NSAID nephropathy. Other possibilities including obstructive uropathy should be considered. Glomerulonephritis/interstitial disease seem unlikely. Hyperkalemia is probably due to increased potassium intake in the setting of using JIMI inhibitors in a patient with chronic kidney disease. Potassium has normalized after discontinuing lisinopril History of hypertension. office reading was elevated. r. She clearly has a component of anxiety which is aggravating her blood pressure. History of hypercalcemia this could be due to excessive calcium intake. Recommendations Hold off on ACEi Amlodipine 5 mg q.d. for control blood pressure. Monitor blood pressure at home. Based on home blood pressure readings I will readjust her medications. Avoid NSAIDs Increase oral fluid intake. Obtain renal ultrasonogram to assess echogenicity and to rule out hydronephrosis. - pending Discontinue calcium supplementation and vitamin-D supplementations. Check PTH - pending Mild Anemia- HCT improved Keep on iron supplementation Orders: Orders Basic Metabolic Panel 4 Weeks E83.52 - Hypercalcemia, N18.30 - Chronic kidney disease, stage 3 unspecified Complete Blood Count no Diff 4 Weeks E83.52 - Hypercalcemia, N18.30 - Chronic kidney disease, stage 3 unspecified Medications: Refilled amlodipine 5 mg PO DAILY 90 tabs 1RF Coding Level of Care Code Est Pt Level 4 (03872) Diagnoses CKD (chronic kidney disease) stage 3, GFR 30-59 ml/min N18.30 Hypercalcemia E83.52 Anemia D64.9 Hyperkalemia E87.5
== END 2023-11-17 12:24 | disposition home or self-care (01) ==
PROVIDERS: PCP Internal Medicine; Visit Provider Internal Medicine Hypertension Specialist
DX: N18.30 Chronic kidney disease, stage 3 unspecified (principal); E83.52 Hypercalcemia; D64.9 Anemia, unspecified; E87.5 Hyperkalemia
CPT/HCPCS: 99214

== ENCOUNTER → 2023-11-17 11:54 | Outpatient (BNVA) | payer MEDICARE, SELFPAY | PROVIDERS: PCP Internal Medicine; Visit Provider Internal Medicine Hypertension Specialist | DX: N18.30 Chronic kidney disease, stage 3 unspecified (principal); E83.52 Hypercalcemia; E87.5 Hyperkalemia; D64.9 Anemia, unspecified | CPT/HCPCS: 99212 ==

== ENCOUNTER 2023-12-11 11:13 | Outpatient (REF) | payer MEDICARE, SELFPAY ==
[2023-12-11 11:53] LABS: Hematocrit 34.8 % (37.0-47.0); Hemoglobin 11.4 g/dl (12.0-16.0); Mean Corpuscular HGB Conc 32.8 g/dl (31.0-35.0); Mean Corpuscular Hemoglobin 32.9 pg (27.0-33.0); Mean Corpuscular Volume 100.6 fL (80.0-98.0); Mean Platelet Volume 8.4 fL (9.4-12.3); Platelet Count 215 X10*3/uL (160-400); Red Blood Count 3.46 X10*6/uL (4.20-5.50); Red Cell Distribution Width 13.4 % (11.0-16.0); White Blood Count 6.7 X10*3/uL (4.8-10.8)
[2023-12-11 12:14] LABS: Anion Gap 16 (12-20); Blood Urea Nitrogen 27 mg/dL (9-16); Calcium 10.5 mg/dL (8.4-10.2); Carbon Dioxide 25 mmol/L (22-29); Chloride 104 mmol/L (96-108); Estimated Glomerular Filt Rate 52; Glucose Random 112 mg/dL (60-115); Potassium 4.6 mmol/L (3.3-5.1); Sodium 140 mmol/L (135-145)
== END 2023-12-11 11:14 | disposition home or self-care (01) ==
LOC: HO.LAB 11:13
PROVIDERS: Absent Provider Internal Medicine Medical Oncology; PCP Internal Medicine; Visit Provider Internal Medicine Hypertension Specialist
DX: N18.30 Chronic kidney disease, stage 3 unspecified (principal); E83.52 Hypercalcemia
CPT/HCPCS: 36415; 80048; 85027

== ENCOUNTER 2023-12-15 10:52 | Outpatient (AMB) | payer MEDICARE, SELFPAY ==
[2023-12-15 10:54] VITALS: BP 160/78; PULSE 91; O2SAT 97; BMI 32.7
--- NOTE | 2023-12-15 10:54 | HO.NEPHOV ---
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 Chronic NSAID use for several years for cramps and severe arthritis Recently she was found to have severe hyperkalemia and was asked to go to the ER. Hyperkalemia was medically corrected and she has been referred for further evaluation. She is chronic kidney disease with a baseline creatinine of around 1.2 mg/dL with a corresponding EGFR of about 40 mL/minute. Upon reviewing the labs it appears that the creatinine has been relatively stable for the last few years. She has had recurrent episodes of hyperkalemia. She has not been on any potassium restriction. Other significant medical history includes iron deficiency anemia and history of GAVE, significant arthritis Today she has no specific complaints. No headache nausea or vomiting. No shortness of breath no cough. No edema. No dysuria urgency frequency or hematuria. No fever no rash. 11/17/23 Tolerating Amlodipine BP seems acceptable Blood pressure was checked multiple times. Her automatic cuff was used which revealed blood pressure 170/70 mm Hg 12/15/2023 Overall she is doing well home blood pressure readings are excellent. No new issues PFSH Medical History Seasonal allergies Hx of glaucoma History of broken leg HTN (hypertension) Arthritis Surgical History Hx of esophagogastroduodenoscopy Hx of colonoscopy Hx of carpal tunnel repair Family History Sister Lung cancer COPD (chronic obstructive pulmonary disease) Breast cancer Afib Father DVT (deep venous thrombosis) Heart disease Social History Household Members: Spouse and Other Alcohol intake: former Patient Tobacco Use Status: Never used Tobacco service: No Physical Exam Vital Signs: Last Vital Signs Pulse 91 12/15/23 10:54 BP 160/78 H 12/15/23 10:54 Pulse Ox 97 12/15/23 10:54 Oxygen Delivery Method Room Air 12/15/23 10:54 BMI result Body Mass Index 32.7 Const General: comfortable; No acute distress Orientation/consciousness: patient oriented x3 Eyes General: appearance normal, both eyes and all related structures Visual Irby: normal visual irby by confrontation Neck Neck: Yes supple and Yes no JVD Resp Effort & Inspection: normal respiratory effort and respiratory effort not decreased Auscultation: rhonchi Cardio Palpation: no palpable S3 and no palpable S4 Heart sounds: no rubs GI Inspection: Yes normal to inspection Palpation (GI): Soft to palpation Percussion: Yes normal to percussion Auscultation: normal bowel sounds General: Yes no CVA tenderness Back/Spine/Pelvis Back: no CVA tenderness Skin General skin exam: no petechiae and no purpura Neuro General: patient oriented x3 and no focal motor deficits Extrem General: No clubbing and No edema Results Reviewed Nephrology Results: Hgb 11.4 g/dl (12.0-16.0) L 12/11/23 WBC 6.7 X10*3/uL (4.8-10.8) 12/11/23 Plt Count 215 X10*3/uL (160-400) 12/11/23 Sodium 140 mmol/L (135-145) 12/11/23 Potassium 4.6 mmol/L (3.3-5.1) 12/11/23 Chloride 104 mmol/L (96-108) 12/11/23 Carbon Dioxide 25 mmol/L (22-29) 12/11/23 BUN 27 mg/dL (9-16) H 12/11/23 Creatinine 1.04 mg/dL (0.5-1.4) 12/11/23 Calcium 10.5 mg/dL (8.4-10.2) H 12/11/23 Phosphorus 3.4 mg/dL (2.7-4.5) 11/13/23 PTH Intact 56.7 pg/mL (8.7-77.1) 11/13/23 Urine Protein Negative mg/dL (Neg-Trace) 11/13/23 Urine Creatinine 83.22 mg/dL 11/13/23 Assessment & Plan Assessment & Plan (1) CKD (chronic kidney disease) stage 3, GFR 30-59 ml/min: Code(s): N18.30 - Chronic kidney disease, stage 3 unspecified Category: Medical (2) Hypercalcemia: Code(s): E83.52 - Hypercalcemia Category: Medical (3) Anemia: Code(s): D64.9 - Anemia, unspecified Category: Medical (4) Hyperkalemia: Code(s): E87.5 - Hyperkalemia Category: Medical Plan 71-year-old woman with history of hypertension, stage 3 chronic kidney disease at baseline with a creatinine of 1.2 mg/dL, significant arthritis and iron deficiency anemia. She had significant hyperkalemia which required medical management. Chronic kidney disease is probably due to hypertension nephrosclerosis. Chronic NSAID use could have led to NSAID nephropathy. Other possibilities including obstructive uropathy should be considered. Glomerulonephritis/interstitial disease seem unlikely. Hyperkalemia is probably due to increased potassium intake in the setting of using JIMI inhibitors in a patient with chronic kidney disease. Potassium has normalized after discontinuing lisinopril History of hypertension. office reading was elevated. r. She clearly has a component of anxiety which is aggravating her blood pressure. History of hypercalcemia this could be due to excessive calcium intake. Recommendations Hold off on ACEi Amlodipine 5 mg q.d. for control blood pressure. Monitor blood pressure at home. Based on home blood pressure readings I will readjust her medications. Avoid NSAIDs Increase oral fluid intake. Discontinued calcium supplementation and vitamin-D supplementations. Intake PTH was 57. Mild Anemia- HCT improved Keep on iron supplementation No changes were made Orders: Orders Comprehensive Met. Panel 4 Months E87.5 - Hyperkalemia, N18.30 - Chronic kidney disease, stage 3 unspecified Phosphorus 4 Months E87.5 - Hyperkalemia, N18.30 - Chronic kidney disease, stage 3 unspecified Parathyroid Hormone Intact 4 Months E87.5 - Hyperkalemia, N18.30 - Chronic kidney disease, stage 3 unspecified Coding Level of Care Code Est Pt Level 4 (89075) Diagnoses CKD (chronic kidney disease) stage 3, GFR 30-59 ml/min N18.30 Hypercalcemia E83.52 Anemia D64.9 Hyperkalemia E87.5
== END 2023-12-15 11:25 | disposition home or self-care (01) ==
PROVIDERS: PCP Internal Medicine; Visit Provider Internal Medicine Hypertension Specialist
DX: N18.30 Chronic kidney disease, stage 3 unspecified (principal); E83.52 Hypercalcemia; D64.9 Anemia, unspecified; E87.5 Hyperkalemia
CPT/HCPCS: 99214

== ENCOUNTER → 2023-12-15 10:52 | Outpatient (BNVA) | payer MEDICARE, SELFPAY | PROVIDERS: PCP Internal Medicine; Visit Provider Internal Medicine Hypertension Specialist | DX: I12.9 Hypertensive chronic kidney disease with stage 1 through stage 4 chronic kidney disease, or unspecified chronic kidney disease (principal); N18.30 Chronic kidney disease, stage 3 unspecified; E83.52 Hypercalcemia; D64.9 Anemia, unspecified; E87.5 Hyperkalemia | CPT/HCPCS: 99212 ==

== ENCOUNTER 2024-01-22 13:21 | Outpatient (AMB) | payer MEDICARE, SELFPAY ==
--- NOTE | 2024-01-22 13:45 | HO.NEPHOV ---
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 She has chronic NSAID use for severe arthritis. Her baseline creatinine of around 1.2 mg/dL with a corresponding EGFR of about 40 mL/minute. BP has been at goal but her intermittent edema bothers her [facility] Medical History (Updated 01/22/24 @ 14:07 by Cristofer Prasad MD) Seasonal allergies Hx of glaucoma History of broken leg HTN (hypertension) Arthritis Surgical History Hx of esophagogastroduodenoscopy Hx of colonoscopy Hx of carpal tunnel repair Family History Sister Lung cancer COPD (chronic obstructive pulmonary disease) Breast cancer Afib Father DVT (deep venous thrombosis) Heart disease Social History Household Members: Spouse and Other Alcohol intake: former Patient Tobacco Use Status: Never used Tobacco service: No Review of Systems Const All systems reviewed & are unremarkable except as noted in HPI and below Physical Exam Vital Signs: Last Vital Signs Pulse 82 01/22/24 13:46 BP 144/70 H 01/22/24 13:46 Pulse Ox 98 01/22/24 13:46 Oxygen Delivery Method Room Air 01/22/24 13:46 BMI result Body Mass Index 33.3 Const General: comfortable and no acute distress Orientation/consciousness: patient oriented x3 HEENT Head: Yes normocephalic Mouth: Normal oral and palatal mucosa present Eyes EOM: EOMs intact bilaterally Neck Neck: Yes supple Resp Auscultation: clear to auscultation bilaterally Cardio Jugular venous distension: no JVD Rate: regular rate GI Palpation (GI): Soft to palpation Auscultation: normal bowel sounds General: Yes no CVA tenderness Back/Spine/Pelvis Back: no CVA tenderness Skin General skin exam: no rashes or lesions noted Neuro General: patient oriented x3 and moves all extremities Extrem General: Yes no pedal edema Results Reviewed Nephrology Results: Hgb 11.4 g/dl (12.0-16.0) L 12/11/23 WBC 6.7 X10*3/uL (4.8-10.8) 12/11/23 Plt Count 215 X10*3/uL (160-400) 12/11/23 Sodium 140 mmol/L (135-145) 12/11/23 Potassium 4.6 mmol/L (3.3-5.1) 12/11/23 Chloride 104 mmol/L (96-108) 12/11/23 Carbon Dioxide 25 mmol/L (22-29) 12/11/23 BUN 27 mg/dL (9-16) H 12/11/23 Creatinine 1.04 mg/dL (0.5-1.4) 12/11/23 Calcium 10.5 mg/dL (8.4-10.2) H 12/11/23 Phosphorus 3.4 mg/dL (2.7-4.5) 11/13/23 PTH Intact 56.7 pg/mL (8.7-77.1) 11/13/23 Urine Protein Negative mg/dL (Neg-Trace) 11/13/23 Urine Creatinine 83.22 mg/dL 11/13/23 Assessment & Plan Assessment & Plan (1) CKD (chronic kidney disease) stage 3, GFR 30-59 ml/min: Code(s): N18.30 - Chronic kidney disease, stage 3 unspecified Category: Medical Qualifiers: Chronic kidney disease stage 3 subtype: stage 3a (GFR 45-59) Qualified Code(s): N18.31 - Chronic kidney disease, stage 3a (2) HTN (hypertension): Code(s): I10 - Essential (primary) hypertension Category: Medical Qualifiers: Hypertension type: primary hypertension Qualified Code(s): I10 - Essential (primary) hypertension Plan Hold off on ACEi; C/W Amlodipine 5 mg q.d. for control blood pressure. Avoid NSAIDs ; C/W adequate oral fluid intake. Keep on iron supplementation;No changes were made No changes made. Follow up given with Dr Barney Orders: Orders Blood Urea Nitrogen 4 Months I10 - Essential (primary) hypertension, N18.31 - Chronic kidney disease, stage 3a Electrolytes 4 Months I10 - Essential (primary) hypertension, N18.31 - Chronic kidney disease, stage 3a Calcium 4 Months I10 - Essential (primary) hypertension, N18.31 - Chronic kidney disease, stage 3a Protein Creatinine Ratio, Ur 4 Months I10 - Essential (primary) hypertension, N18.31 - Chronic kidney disease, stage 3a Creatinine 4 Months I10 - Essential (primary) hypertension, N18.31 - Chronic kidney disease, stage 3a Coding Level of Care Code Est Pt Level 4 (97785) Diagnoses Stage 3a chronic kidney disease N18.31 Chronic kidney disease stage 3 subtype: stage 3a (GFR 45-59) Primary hypertension I10 Hypertension type: primary hypertension
[2024-01-22 13:46] VITALS: BP 144/70; PULSE 82; O2SAT 98; BMI 33.3
== END 2024-01-22 15:50 | disposition home or self-care (01) ==
PROVIDERS: PCP Internal Medicine; Visit Provider Internal Medicine Nephrology
DX: N18.31 Chronic kidney disease, stage 3a (principal); I10 Essential (primary) hypertension
CPT/HCPCS: 99214

== ENCOUNTER → 2024-01-22 13:21 | Outpatient (BNVA) | payer MEDICARE, SELFPAY | PROVIDERS: PCP Internal Medicine; Visit Provider Internal Medicine Nephrology | DX: I12.9 Hypertensive chronic kidney disease with stage 1 through stage 4 chronic kidney disease, or unspecified chronic kidney disease (principal); N18.31 Chronic kidney disease, stage 3a; Z79.899 Other long term (current) drug therapy | CPT/HCPCS: 99212 ==

== ENCOUNTER 2024-02-03 11:25 | Outpatient (AMB) | payer MEDICARE, SELFPAY ==
--- NOTE | 2024-02-03 11:26 | AM.OFFWIN_ITS ---
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 While every effort has been made to ensure accuracy, oral surgery physician errors may have been included. The patient is a 73 year old female who presents to the clinic today with left eye swelling. She denies any trauma to the area, has no difficulty with vision. She reports that she has found the swelling to be beneath the eye, and with the lid feeling a little droopy on the left. She is any word-finding difficulties, left-sided weakness or pain, confusion. She has not tried anything to resolve this, but notes that the symptoms of leading getting worse over the last few days. She wears glasses not contacts. She does not have any discharge from the eye. [facility] Medical History (Updated 01/22/24 @ 14:07 by Cristofer Prasad MD) Seasonal allergies Hx of glaucoma History of broken leg HTN (hypertension) Arthritis Surgical History Hx of esophagogastroduodenoscopy Hx of colonoscopy Hx of carpal tunnel repair Family History Sister Lung cancer COPD (chronic obstructive pulmonary disease) Breast cancer Afib Father DVT (deep venous thrombosis) Heart disease Social History Household Members: Spouse and Other Alcohol intake: former Patient Tobacco Use Status: Never used Tobacco service: No Review of Systems Const All systems reviewed & are unremarkable except as noted in HPI and below Physical Exam Vital Signs: Last Vital Signs Pulse 88 02/03/24 11:29 BP 142/80 H 02/03/24 11:29 Pulse Ox 97 02/03/24 11:29 Oxygen Delivery Method Room Air 02/03/24 11:29 BMI result Body Mass Index 33.5 Const General: cooperative, healthy appearing, comfortable, no acute distress and alert Orientation/consciousness: patient oriented x3 Limitations: no limitations HEENT Head: Yes normal to inspection and Yes normocephalic Ears: hearing grossly normal bilaterally General nose exam: Normal external nose present Face and sinus: Yes normal facial exam and Yes sinuses nontender Mouth: Normal oral and palatal mucosa present and tongue normal Teeth and gingiva: dentition normal Throat: Yes posterior oropharynx normal Eyes Other: Erythema and inflammation to the left and beneath her left eyelid. EOMI. Visual acuity obtained. Visual Irby: normal visual irby by confrontation Alignment and Position: alignment normal Conjunctivae: conjunctivae normal Sclerae: sclerae normal Corneas: corneas normal Pupils: Equal, round and reactive pupils present EOM: EOMs intact bilaterally Skin General skin exam: no rashes or lesions noted, elasticity normal and turgor normal Neuro General: patient oriented x3 Cranial nerves: Yes Equal, round and reactive pupils present Psych Appearance: grossly normal Mental Status: mental status grossly normal Speech and movement: Normal speech and movement present Affect: normal affect Assessment & Plan Assessment & Plan (1) Preseptal cellulitis of left eye: Code(s): L03.213 - Periorbital cellulitis Plan: Antimicrobial therapy initiated using Levaquin due to patient's allergy profile. Advised patient to do cold compresses. She may continue with allergy treatment. Advised to monitor for any worsening including any difficulty difficulty with vision, increased swelling surrounding the eye, or pain with moving the eye. Advised her that if she does have worsening she may better be treated in the emergency room as she may require IV antibiotics. Plan See above for full details and plan. Medications: New levofloxacin 250 mg PO DAILY 5 days 5 tabs 0RF Coding Level of Care Code Est Pt Level 3 (86160) Diagnoses Preseptal cellulitis of left eye L03.213 CPT Codes Vision Screening - Vision Screenin - Vision Screening ([id number]) Vision Screening Right Eye: 20/25 Left Eye: 20/25 Bilateral: 20/25 Corrected: Pass 09987 - Vision Screening
[2024-02-03 11:29] VITALS: BP 142/80; PULSE 88; O2SAT 97; BMI 33.5
== END 2024-02-03 12:17 | disposition home or self-care (01) ==
PROVIDERS: PCP Internal Medicine; Visit Provider Registered Nurse
DX: L03.213 Periorbital cellulitis (principal); Z01.00 Encounter for examination of eyes and vision without abnormal findings
CPT/HCPCS: 99173; 99213

== ENCOUNTER 2024-03-03 13:02 | Outpatient (AMB) | payer MEDICARE, SELFPAY ==
[2024-03-03 13:07] VITALS: BP 152/58; PULSE 76; O2SAT 98; BMI 32.6
--- NOTE | 2024-03-03 13:07 | HO.NEPHOV_ITS ---
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 Accompanied by: Self / Same As Patient Allergies penicillin G [PENICILLIN G] Allergy (Unknown, Verified 03/03/24 13:11) Rash Medication List - Last Reconciled 03/03/24 by Iván Barney MD acetaminophen ER 650 mg PO Q8H amlodipine 5 mg PO DAILY ascorbic acid (vitamin C) (Vitamin C) 500 mg PO DAILY famotidine 40 mg PO BID ferrous sulfate (iron) 325 mg PO DAILY fluticasone propionate 50 mcg/actuation 1 spray intranasal DAILY levofloxacin 250 mg PO DAILY 5 days omega-3 fatty acids 800 mg PO DAILY HPI Comments Details: Loreto is a 72-year-old woman with a history of longstanding hypertension and she has been on lisinopril 10 mg b.i.d.. Chronic NSAID use for several years for cramps and severe arthritis Recently she was found to have severe hyperkalemia and was asked to go to the ER. Hyperkalemia was medically corrected and she has been referred for further evaluation. She is chronic kidney disease with a baseline creatinine of around 1.2 mg/dL with a corresponding EGFR of about 40 mL/minute. Upon reviewing the labs it appears that the creatinine has been relatively stable for the last few years. She has had recurrent episodes of hyperkalemia. She has not been on any potassium restriction. Other significant medical history includes iron deficiency anemia and history of GAVE, significant arthritis Today she has no specific complaints. No headache nausea or vomiting. No shortness of breath no cough. No edema. No dysuria urgency frequency or hematuria. No fever no rash. 11/17/23 Tolerating Amlodipine BP seems acceptable Blood pressure was checked multiple times. Her automatic cuff was used which revealed blood pressure 170/70 mm Hg 12/15/2023 Overall she is doing well home blood pressure readings are excellent. No new issues 03/03/24 c/o Edema Wants to stop amlodipine PFSH Medical History Seasonal allergies Hx of glaucoma History of broken leg HTN (hypertension) Arthritis Surgical History Hx of esophagogastroduodenoscopy Hx of colonoscopy Hx of carpal tunnel repair Family History Sister Lung cancer COPD (chronic obstructive pulmonary disease) Breast cancer Afib Father DVT (deep venous thrombosis) Heart disease Social History Household Members: Spouse and Other Alcohol intake: former Patient Tobacco Use Status: Never used Tobacco service: No Physical Exam Vital Signs: Last Vital Signs Pulse 76 03/03/24 13:07 BP 152/58 H 03/03/24 13:07 Pulse Ox 98 03/03/24 13:07 Oxygen Delivery Method Room Air 03/03/24 13:07 BMI result Body Mass Index 32.6 Const General: comfortable; No acute distress Orientation/consciousness: patient oriented x3 Eyes General: appearance normal, both eyes and all related structures Visual Irby: normal visual irby by confrontation Neck Neck: Yes supple and Yes no JVD Resp Effort & Inspection: normal respiratory effort and respiratory effort not decre ased Auscultation: rhonchi Cardio Palpation: no palpable S3 and no palpable S4 Heart sounds: no rubs GI Inspection: Yes normal to inspection Palpation (GI): Soft to palpation Percussion: Yes normal to percussion Auscultation: normal bowel sounds General: Yes no CVA tenderness Back/Spine/Pelvis Back: no CVA tenderness Skin General skin exam: no petechiae and no purpura Neuro General: patient oriented x3 and no focal motor deficits Extrem General: Yes edema (TRACE) Results Reviewed Nephrology Results: Hgb 10.7 g/dl (12.0-16.0) L 02/25/24 WBC 6.4 X10*3/uL (4.8-10.8) 02/25/24 Plt Count 221 X10*3/uL (160-400) 02/25/24 Sodium 140 mmol/L (135-145) 02/25/24 Potassium 4.7 mmol/L (3.3-5.1) 02/25/24 Chloride 107 mmol/L (96-108) 02/25/24 Carbon Dioxide 26 mmol/L (22-29) 02/25/24 BUN 30 mg/dL (9-16) H 02/25/24 Creatinine 0.98 mg/dL (0.5-1.4) 02/25/24 Calcium 10.1 mg/dL (8.4-10.2) 02/25/24 Phosphorus 3.4 mg/dL (2.7-4.5) 11/13/23 PTH Intact 56.7 pg/mL (8.7-77.1) 11/13/23 Urine Protein Negative mg/dL (Neg-Trace) 11/13/23 Urine Creatinine 83.22 mg/dL 11/13/23 Assessment & Plan Assessment & Plan (1) CKD (chronic kidney disease) stage 3, GFR 30-59 ml/min: Code(s): N18.30 - Chronic kidney disease, stage 3 unspecified Category: Medical Qualifiers: Chronic kidney disease stage 3 subtype: stage 3a (GFR 45-59) Qualified Code(s): N18.31 - Chronic kidney disease, stage 3a (2) Hypercalcemia: Code(s): E83.52 - Hypercalcemia Category: Medical (3) Anemia: Code(s): D64.9 - Anemia, unspecified Category: Medical (4) Hyperkalemia: Code(s): E87.5 - Hyperkalemia Category: Medical Plan 71-year-old woman with history of hypertension, stage 3 chronic kidney disease at baseline with a creatinine of 1.2 mg/dL, significant arthritis and iron deficiency anemia. She had significant hyperkalemia which required medical management. Chronic kidney disease is probably due to hypertension nephrosclerosis. Chronic NSAID use could have led to NSAID nephropathy. Other possibilities including obstructive uropathy should be considered. Glomerulonephritis/interstitial disease seem unlikely. Hyperkalemia is probably due to increased potassium intake in the setting of using JIMI inhibitors in a patient with chronic kidney disease. Potassium has normalized after discontinuing lisinopril History of hypertension. office reading was elevated. r. She clearly has a component of anxiety which is aggravating her blood pressure. History of hypercalcemia this could be due to excessive calcium intake. Recommendations Hold off on ACEi Amlodipine 5 mg q.d. for control blood pressure. At her request. Will STOP AMLODIPINE Try Hydralazine 10 mg TID Avoid NSAIDs Increase oral fluid intake. Discontinued calcium supplementation and vitamin-D supplementations. Intake PTH was 57. Mild Anemia- HCT improved Keep on iron supplementation Orders: Orders Complete Blood Count Auto Diff 6 Months I10 - Essential (primary) hypertension Basic Metabolic Panel 6 Months I10 - Essential (primary) hypertension Medications: New hydralazine 10 mg PO TID 90 tabs 1RF Discontinued amlodipine Discontinued Reason: Doctor's Order 5 mg PO DAILY 90 tabs 1RF Coding Level of Care Code Est Pt Level 4 (45951) Diagnoses Stage 3a chronic kidney disease N18.31 Chronic kidney disease stage 3 subtype: stage 3a (GFR 45-59) Hypercalcemia E83.52 Anemia D64.9 Hyperkalemia E87.5
== END 2024-03-03 13:39 | disposition home or self-care (01) ==
PROVIDERS: PCP Internal Medicine; Visit Provider Internal Medicine Hypertension Specialist
DX: I12.9 Hypertensive chronic kidney disease with stage 1 through stage 4 chronic kidney disease, or unspecified chronic kidney disease (principal); N18.31 Chronic kidney disease, stage 3a; D63.1 Anemia in chronic kidney disease; E83.52 Hypercalcemia; E87.5 Hyperkalemia
CPT/HCPCS: 99214

== ENCOUNTER → 2024-03-03 13:02 | Outpatient (BNVA) | payer MEDICARE, SELFPAY | PROVIDERS: PCP Internal Medicine; Visit Provider Internal Medicine Hypertension Specialist | DX: I12.9 Hypertensive chronic kidney disease with stage 1 through stage 4 chronic kidney disease, or unspecified chronic kidney disease (principal); E83.52 Hypercalcemia; N18.31 Chronic kidney disease, stage 3a; D63.1 Anemia in chronic kidney disease | CPT/HCPCS: 99212 ==

== ENCOUNTER 2024-03-17 09:26 | Day surgery (SDC) | payer MEDICARE, SELFPAY ==
[2024-03-15 14:09] VITALS: BMI 31.1
--- NOTE | 2024-03-16 09:16 | P.CONAN_ITS ---
Documented by User: Elida Ricks NP 03/16/24 09:16 HPI - Anesthesia Eval Consult details Narrative: 73yo F for Upper Endoscopy PMFSH Active Problems Active Problems: All Active Problems HTN (hypertension) (Acute) Hyperkalemia (Acute) CKD (chronic kidney disease) stage 3, GFR 30-59 ml/min (Acute) Personal history of colonic polyps (Acute) Hypercalcemia (Acute) Iron deficiency (Acute) Anemia (Acute) Family history of deep vein thrombosis (Acute) Past Medical History Medical History Seasonal allergies Hx of glaucoma History of broken leg HTN (hypertension) Arthritis Family History Family History Sister Lung cancer COPD (chronic obstructive pulmonary disease) Breast cancer Afib Father DVT (deep venous thrombosis) Heart disease Family history of problems with anesthesia: No Surgical History Surgical History Hx of esophagogastroduodenoscopy Hx of colonoscopy Hx of carpal tunnel repair History of Problems with Anesthesia: No Social History Social History Household Members: Spouse and Other Are you a primary healthcare translator to a significant other at home: No Do you presently have visiting nurse or other home services: No Alcohol intake: former Comment: FELL IN OCTOBER AFTER MED CHANGE Patient Tobacco Use Status: Never used Tobacco Have you been hit, kicked, punched, or otherwise hurt by someone within the past year? If so, by whom?: No Are you DNR?: No Advance Directives: No Advance Directives Information Provided: Yes Recently lost weight without trying: No Nutrition Risks: No Nutritional Risk Patient : No service: No Meds Allergies Allergy/AdvReac Type Severity Reaction Status Date / Time penicillin G [PENICILLIN G] Allergy Unknown Rash Verified 03/03/24 13:11 Home Medications ?Medication ?Instructions ?Recorded ?Confirmed ?Last Taken ?Type fluticasone propionate 50 1 spray intranasal DAILY 10/30/20 03/03/24 01/23/23 History mcg/actuation nasal spray,suspension ascorbic acid (vitamin C) 500 mg 500 mg PO DAILY 12/18/22 03/03/24 Unknown H istory tablet (Vitamin C) ferrous sulfate 325 mg (65 mg 325 mg PO DAILY 12/18/22 03/03/24 03/24/23 History iron) tablet (iron) famotidine 40 mg tablet 40 mg PO BID 05/25/23 03/03/24 Unknown History acetaminophen 650 mg 650 mg PO Q8H 10/27/23 03/03/24 Unknown History tablet,extended release omega-3 fatty acids 800 mg PO DAILY 10/27/23 03/03/24 Unknown History amlodipine 5 mg tablet 5 mg PO DAILY 03/16/24 03/16/24 Unknown History Exam Height,Weight and Vital Signs: Height 4 ft 10 in Weight 67.585 kg Assessment and Plan Assessment Anesthesia Assessment: Chart Reviewed Final Anesthetic Review Family History of Problems with Anesthesia: No History of Problems with Anesthesia: No Documented by User: Nara Evans MD 03/17/24 10:11 [facility] Past Medical History Medical History Seasonal allergies Hx of glaucoma History of broken leg HTN (hypertension) Arthritis Family History Family History Sister Lung cancer COPD (chronic obstructive pulmonary disease) Breast cancer Afib Father DVT (deep venous thrombosis) Heart disease Surgical History Surgical History Hx of esophagogastroduodenoscopy Hx of colonoscopy Hx of carpal tunnel repair Social History Social History Household Members: Spouse and Other Are you a primary healthcare translator to a significant other at home: No Do you presently have visiting nurse or other home services: No Alcohol intake: former Comment: FELL IN OCTOBER AFTER MED CHANGE Patient Tobacco Use Status: Never used Tobacco Have you been hit, kicked, punched, or otherwise hurt by someone within the past year? If so, by whom?: No Are you DNR?: No Advance Directives: No Advance Directives Information Provided: Yes Recently lost weight without trying: No Nutrition Risks: No Nutritional Risk Patient : No service: No Meds Allergies Allergy/AdvReac Type Severity Reaction Status Date / Time penicillin G [PENICILLIN G] Allergy Unknown Rash Verified 03/03/24 13:11 Home Medications ?Medication ?Instructions ?Recorded ?Confirmed ?Last Taken ?Type fluticasone propionate 50 1 spray intranasal DAILY 10/30/20 03/03/24 01/23/23 History mcg/actuation nasal spray,suspension ascorbic acid (vitamin C) 500 mg 500 mg PO DAILY 12/18/22 03/03/24 Unknown History tablet (Vitamin C) ferrous sulfate 325 mg (65 mg 325 mg PO DAILY 12/18/22 03/03/24 03/24/23 History iron) tablet (iron) famotidine 40 mg tablet 40 mg PO BID 05/25/23 03/03/24 Unknown History acetaminophen 650 mg 650 mg PO Q8H 10/27/23 03/03/24 Unknown History tablet,extended release omega-3 fatty acids 800 mg PO DAILY 10/27/23 03/03/24 Unknown History amlodipine 5 mg tablet 5 mg PO DAILY 03/16/24 03/16/24 Unknown History Exam Airway Mallampati Class: II (caps laterally) TM Dist: >3cm Neck ROM: Full Heart: rrr Lungs: cta Assessment and Plan Assessment Anesthesia Assessment: Anesthesia Plan Discussed Final Anesthetic Review NPO: Yes ASA Class: II Final Preanesthetic Review: No Changes in Pt Med Stat, Meds/Allgs Chart Reviewed and Consent Obtained/Reviewed Patient Risk: Low Procedure Risk: Intermediate Anesthetic Plan Anesthetic Plan: MAC: Disposition: Standard PACU
[2024-03-17 10:00] VITALS: BP 174/63; PULSE 99; RESP 18; TEMP 37.1; O2SAT 99; BMI 31.1
--- NOTE | 2024-03-17 10:12 | MHC.SHP ---
Pre-Procedural Eval Section A - 24 Hr Update-Section A only Date of Service: 03/17/24 Section B - Complete if H&P > 30 days Chief Complaint: Iron deficiency, GAVE Details of Present Illness: Seasonal allergies Hx of glaucoma History of broken leg HTN (hypertension) Arthritis Surgical History Hx of esophagogastroduodenoscopy Hx of colonoscopy Hx of carpal tunnel repair Allergies: Allergies Allergy/AdvReac Type Severity Reaction Status Date / Time penicillin G [PENICILLIN G] Allergy Unknown Rash Verified 03/03/24 13:11 Review of Systems Review of Systems Comment: Ten point ROS negative Exam Exam Comment: Gen appear: No acute distress HEENT: no icterus Chest: No overt resp distress Abd: soft, nontender, nondistended Psych: Stable affect, answering questions appropriately Neuro: A/Ox3 noted to move all extremities spontaneously Ext: no peripheral edema Plan Diagnosis/Plan: Unchanged I have reviewed the history and physical and performed a pertinent physical examination on my patient. No changes have occurred unless specified. Time Spent With Patient Time: Total time managing care of this patient today ____ minutes.
[2024-03-17 10:37] VITALS: BP 114/56; PULSE 78; RESP 16; TEMP 36.2; O2SAT 98
--- NOTE | 2024-03-17 10:43 | P.OP_ITS ---
Operative Note Operative Note Date of Service: 03/17/24 Narrative: Procedure:?Esophagogastroduodenoscopy Endoscopist:?Loreta Rice MD Indication:?Anemia, GAVE Anesthesia Provider:?Nara Singh MD Anesthesia Type:?MAC Instrument:?Olympus [id number]-[id number] EGD Procedure:?? The procedure, indications, preparation and potential complications were reviewed with the patient, who indicated understanding and gave written informed consent to proceed. A physical exam was performed. The endoscope was introduced through the mouth, and advanced to the second part of duodenum. The mucosa was carefully examined on slow withdrawal of the endoscope.? There were no immediate complications.? Patient tolerated the procedure well. EGD Findings:? * Esophagus:? Normal mucosa noted in the entire esophagus.? The Z-line is at 32 cm. There was a hiatal hernia with a diaphragmatic pinch at 36 cm.? * Stomach:? 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 Appearance much improved from before. This was ablated with Argon plasma coagulation using circumferential catheter. Retroflexion was performed in the fundus and showed Hill grade III hiatal hernia. * Duodenum:?Normal duodenal mucosa to the extent visualised. Impression: 1. Normal esophageal mucosa 2. Hiatal hernia 3. GAVE (APC) 4. Normal duodenum Recommendations: - Sucralfate 10 ml QID x 2 weeks - Repeat EGD in 3 months
[2024-03-17 10:50] VITALS: BP 144/59; PULSE 76; RESP 16; TEMP 36.1; O2SAT 99
== END 2024-03-17 11:37 | disposition home or self-care (01) ==
PROVIDERS: PCP Internal Medicine; Visit Provider Internal Medicine
PROC: 0DJ08ZZ Inspection of Upper Intestinal Tract, Via Natural or Artificial Opening Endoscopic (ICD-10-PCS; CPT 43235; principal; 2024-03-17 11:40)
DX: K31.819 Angiodysplasia of stomach and duodenum without bleeding (principal); K44.9 Diaphragmatic hernia without obstruction or gangrene; E61.1 Iron deficiency; I12.9 Hypertensive chronic kidney disease with stage 1 through stage 4 chronic kidney disease, or unspecified chronic kidney disease; N18.30 Chronic kidney disease, stage 3 unspecified; Z79.899 Other long term (current) drug therapy
CPT/HCPCS: 43270; J2003; J2704

== ENCOUNTER → 2024-03-17 09:26 | Outpatient (BNV) | payer MEDICARE, SELFPAY | PROVIDERS: PCP Internal Medicine; Visit Provider Internal Medicine | DX: K31.819 Angiodysplasia of stomach and duodenum without bleeding (principal) | CPT/HCPCS: 43270 ==

== ENCOUNTER 2024-03-30 13:12 | Outpatient (REF) | payer MEDICARE, SELFPAY ==
--- NOTE | ~2024-03-30 | MM_ITS ---
EXAMINATION: MM SCREENING DIGITAL BREAST TOMOSYNTHESIS, BILATERAL CLINICAL INFORMATION: Screening. Asymptomatic. COMPARISON: Mammography: Comparison is made with available priors TECHNIQUE: Digital breast mammography with tomosynthesis is performed in both the craniocaudal and mediolateral oblique views along with computer-aided detection (CAD). FINDINGS: The breasts are heterogeneously dense, which may obscure small masses (ACR BI-RADS breast composition Category c). There are no significant masses, abnormal calcifications, or other abnormalities. MM/MM tomosynthesis screening BI IMPRESSION: No mammographic evidence of malignancy. ASSESSMENT: BI-RADS BI-RADS 1 - Negative RECOMMENDATION: Routine annual mammography screening. 1 year F/U This examination should not preclude the clinical evaluation of a suspicious palpable abnormality. This patient's information was entered into a reminder system with a target due date for their next mammogram. Electronically signed by: Shanice Mojica DO 04/11/2024 04:15 PM [facility]
== END 2024-03-30 13:13 | disposition home or self-care (01) ==
LOC: HO.MAMMO 13:12
PROVIDERS: PCP Internal Medicine; Visit Provider Internal Medicine
DX: Z12.31 Encounter for screening mammogram for malignant neoplasm of breast (principal)
CPT/HCPCS: 77063; 77067

== ENCOUNTER → 2024-03-30 13:30 | Outpatient (BNV) | payer MEDICARE, SELFPAY | PROVIDERS: PCP Internal Medicine; Visit Provider Internal Medicine | DX: Z12.31 Encounter for screening mammogram for malignant neoplasm of breast (principal) | CPT/HCPCS: 77063; 77067 ==

== ENCOUNTER 2024-08-24 11:51 | Outpatient (REF) | payer MEDICARE, SELFPAY ==
[2024-08-24 12:25] LABS: MANUAL DIFF FLAG NO
[2024-08-24 12:53] LABS: Eosinophils Percent Auto 0.6 % (0-4); Hematocrit 31.5 % (37.0-47.0); Hemoglobin 10.1 g/dl (12.0-16.0); Imm Gran Abs Auto 0.03 X10*3/uL (0.00-0.03); Imm Gran Pct Auto 0.6 % (0.0-0.4); Lymphocytes Absolute Auto 1.2 X10*3/uL (1.2-4.9); Lymphocytes Percent Auto 23.5 % (20-40); Mean Corpuscular HGB Conc 32.1 g/dl (31.0-35.0); Mean Corpuscular Hemoglobin 31.1 pg (27.0-33.0); Mean Corpuscular Volume 96.9 fL (80.0-98.0); Mean Platelet Volume 9.1 fL (9.4-12.3); Monocytes Absolute Auto 0.6 X10*3/uL (0.1-1.2); Monocytes Percent Auto 12.1 % (2-11); Neutrophils Absolute Auto 3.1 x10*3/uL (2.0-8.3); Neutrophils Percent Auto 63.2 % (45-73); Platelet Count 205 X10*3/uL (160-400); Red Blood Count 3.25 X10*6/uL (4.20-5.50); Red Cell Distribution Width 12.4 % (11.0-16.0)
[2024-08-24 13:25] LABS: Anion Gap 12 (12-20); Blood Urea Nitrogen 27 mg/dL (9-16); Calcium 9.8 mg/dL (8.4-10.2); Carbon Dioxide 25 mmol/L (22-29); Chloride 107 mmol/L (96-108); Estimated Glomerular Filt Rate > 60; Glucose Random 97 mg/dL (60-115); Potassium 4.8 mmol/L (3.3-5.1); Sodium 139 mmol/L (135-145)
== END 2024-08-24 11:52 | disposition home or self-care (01) ==
LOC: HO.LAB 11:51
PROVIDERS: Visit Provider Internal Medicine Hypertension Specialist
DX: I10 Essential (primary) hypertension (principal)
CPT/HCPCS: 36415; 80048; 85025

== ENCOUNTER 2024-08-30 13:25 | Outpatient (AMB) | payer MEDICARE, SELFPAY ==
[2024-08-30 13:30] VITALS: BP 144/52; PULSE 93; O2SAT 99; BMI 32.6
--- NOTE | 2024-08-30 13:30 | HO.NEPHOV ---
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 Accompanied by: Self / Same As Patient Allergies penicillin G [PENICILLIN G] Allergy (Unknown, Verified 08/30/24 13:32) Rash Medication List - Last Reconciled 08/30/24 by Iván Barney MD acetaminophen ER 650 mg PO Q8H amlodipine 5 mg PO DAILY ascorbic acid (vitamin C) (Vitamin C) 500 mg PO DAILY famotidine 40 mg PO BID ferrous sulfate (iron) 325 mg PO DAILY fluticasone propionate 50 mcg/actuation 1 spray intranasal DAILY levofloxacin 250 mg PO DAILY 5 days omega-3 fatty acids 800 mg PO DAILY HPI Comments Details: Loreto is a 72-year-old woman with a history of longstanding hypertension and she has been on lisinopril 10 mg b.i.d.. Chronic NSAID use for several years for cramps and severe arthritis Recently she was found to have severe hyperkalemia and was asked to go to the ER. Hyperkalemia was medically corrected and she has been referred for further evaluation. She is chronic kidney disease with a baseline creatinine of around 1.2 mg/dL with a corresponding EGFR of about 40 mL/minute. Upon reviewing the labs it appears that the creatinine has been relatively stable for the last few years. She has had recurrent episodes of hyperkalemia. She has not been on any potassium restriction. Other significant medical history includes iron deficiency anemia and history of GAVE, significant arthritis Today she has no specific complaints. No headache nausea or vomiting. No shortness of breath no cough. No edema. No dysuria urgency frequency or hematuria. No fever no rash. 11/17/23 Tolerating Amlodipine BP seems acceptable Blood pressure was checked multiple times. Her automatic cuff was used which revealed blood pressure 170/70 mm Hg 12/15/2023 Overall she is doing well home blood pressure readings are excellent. No new issues 03/03/24 c/o Edema Wants to stop amlodipine 08/30/24 Did not take hydralazine c.o edema due to amlodipine and wants to stop it She drinks more water and swelling gets better - ironic? COUNT INCLUDES THE [facility] Medical History Seasonal allergies Hx of glaucoma History of broken leg HTN (hypertension) Arthritis Surgical History Hx of esophagogastroduodenoscopy Hx of colonoscopy Hx of carpal tunnel repair Family History Sister Lung cancer COPD (chronic obstructive pulmonary disease) Breast cancer Afib Father DVT (deep venous thrombosis) Heart disease Social History Household Members: Spouse and Other Are you a primary career discovery teacher to a significant other at home: No Do you presently have visiting nurse or other home services: No Alcohol intake: former Comment: FELL IN OCTOBER AFTER MED CHANGE Patient Tobacco Use Status: Never used Tobacco service: No Physical Exam Vital Signs: Last Vital Signs Pulse 93 08/30/24 13:30 BP 144/52 H 08/30/24 13:30 Pulse Ox 99 08/30/24 13:30 Oxygen Delivery Method Room Air 08/30/24 13:30 BMI result Body Mass Index 32.6 Const General: comfortable; No acute distress Orientation/consciousness: patient oriented x3 Eyes General: appearance normal, both eyes and all related structures Visual Irby: normal visual irby by confrontation Neck Neck: Yes supple and Yes no JVD Resp Effort & Inspection: normal respiratory effort and respiratory effort not decreased Cardio Palpation: no palpable S3 and no palpable S4 Heart sounds: no rubs GI Inspection: Yes normal to inspection Palpation (GI): Soft to palpation Percussion: Yes normal to percussion Auscultation: normal bowel sounds General: Yes no CVA tenderness Back/Spine/Pelvis Back: no CVA tenderness Skin General skin exam: no petechiae and no purpura Neuro General: patient oriented x3 and no focal motor deficits Extrem General: Yes edema (TRACE) Results Reviewed Nephrology Results: Hgb 10.1 g/dl (12.0-16.0) L 08/24/24 WBC 5.0 X10*3/uL (4.8-10.8) 08/24/24 Plt Count 205 X10*3/uL (160-400) 08/24/24 Sodium 139 mmol/L (135-145) 08/24/24 Potassium 4.8 mmol/L (3.3-5.1) 08/24/24 Chloride 107 mmol/L (96-108) 08/24/24 Carbon Dioxide 25 mmol/L (22-29) 08/24/24 BUN 27 mg/dL (9-16) H 08/24/24 Creatinine 0.78 mg/dL (0.5-1.4) 08/24/24 Calcium 9.8 mg/dL (8.4-10.2) 08/24/24 PTH Intact 24 pg/mL (16-77) 12/18/22 Assessment & Plan Assessment & Plan (1) CKD (chronic kidney disease) stage 3, GFR 30-59 ml/min: Code(s): N18.30 - Chronic kidney disease, stage 3 unspecified Category: Medical Qualifiers: Chronic kidney disease stage 3 subtype: stage 3a (GFR 45-59) Qualified Code(s): N18.31 - Chronic kidney disease, stage 3a (2) Hypercalcemia: Code(s): E83.52 - Hypercalcemia Category: Medical (3) Anemia: Code(s): D64.9 - Anemia, unspecified Category: Medical (4) Hyperkalemia: Code(s): E87.5 - Hyperkalemia Category: Medical Plan 74-year-old woman with history of hypertension, stage 3 chronic kidney disease at baseline with a creatinine of 1.2 mg/dL, significant arthritis and iron deficiency anemia. She had a h/o significant hyperkalemia which required medical management. Chronic kidney disease is probably due to hypertension nephrosclerosis. Chronic NSAID use could have led to NSAID nephropathy. Other possibilities including obstructive uropathy should be considered. Glomerulonephritis/interstitial disease seem unlikely. Hyperkalemia is probably due to increased potassium intake in the setting of using JIMI inhibitors in a patient with chronic kidney disease. Potassium has normalized after discontinuing lisinopril History of hypertension. office reading was elevated. She clearly has a component of anxiety which is aggravating her blood pressure. History of hypercalcemia this could be due to excessive calcium intake. Recommendations Hold off on ACEi Avoid NSAIDs Increase oral fluid intake. Discontinued calcium supplementation and vitamin-D supplementations. Intake PTH was 57. Mild Anemia- HCT improved Keep on iron supplementation If swelling is an issue, we can stop Amlodipine and try Hydralazine. Coding Level of Care Code Est Pt Level 5 (21034) Diagnoses Stage 3a chronic kidney disease N18.31 Chronic kidney disease stage 3 subtype: stage 3a (GFR 45-59) Hypercalcemia E83.52 Anemia D64.9 Hyperkalemia E87.5
== END 2024-08-30 13:51 | disposition home or self-care (01) ==
LOC: HO.HKA 13:26
PROVIDERS: PCP Internal Medicine; Visit Provider Internal Medicine Hypertension Specialist
DX: N18.31 Chronic kidney disease, stage 3a (principal); D63.1 Anemia in chronic kidney disease; E83.52 Hypercalcemia; E87.5 Hyperkalemia
CPT/HCPCS: 99214

== ENCOUNTER → 2024-08-30 13:25 | Outpatient (BNVA) | payer MEDICARE, SELFPAY | PROVIDERS: PCP Internal Medicine; Visit Provider Internal Medicine Hypertension Specialist | DX: N18.31 Chronic kidney disease, stage 3a (principal); E83.52 Hypercalcemia; E87.5 Hyperkalemia; D64.9 Anemia, unspecified | CPT/HCPCS: 99212 ==

== ENCOUNTER 2024-08-31 12:30 | Outpatient (RCR) | payer MEDICARE, SELFPAY ==
[2024-08-23 13:37] VITALS: BP 145/51; PULSE 80; RESP 20; TEMP 36.7; O2SAT 99
[2024-08-23] MEDS: Ferric Carboxymaltose 750 MG in 0.9 % Sodium Chloride 250 ML 1060 MG IV (14:00)
[2024-08-23] MEDS: 0.9 % Sodium Chloride Flush 10 ML SYRINGE 5 ML IVFLUSH (14:21)
[2024-08-31 12:49] VITALS: BP 136/49; PULSE 75; RESP 16; TEMP 36.1; O2SAT 100
[2024-08-31] MEDS: Ferric Carboxymaltose 750 MG in 0.9 % Sodium Chloride 250 ML 1060 MG IV (13:30)
== END 2024-08-31 14:43 | disposition home or self-care (01) ==
LOC: HO.INF 12:30
PROVIDERS: Visit Provider Internal Medicine Medical Oncology
DX: E61.1 Iron deficiency (principal)
CPT/HCPCS: 96365; J1439

== ENCOUNTER 2024-09-08 07:22 | Day surgery (SDC) | payer MEDICARE, SELFPAY ==
[2024-07-12 11:16] VITALS: BMI 31.1
[2024-09-06 10:35] VITALS: BMI 31.1
--- NOTE | 2024-09-07 08:25 | P.CONAN_ITS ---
Documented by User: Elida Ricks NP 09/07/24 08:25 HPI - Anesthesia Eval Consult details Narrative: 74yo F for Upper Endoscopy PMFSH Active Problems Active Problems: All Active Problems GAVE (gastric antral vascular ectasia) (Acute) HTN (hypertension) (Acute) Hyperkalemia (Acute) CKD (chronic kidney disease) stage 3, GFR 30-59 ml/min (Acute) Personal history of colonic polyps (Acute) Hypercalcemia (Acute) Iron deficiency (Acute) Anemia (Acute) Family history of deep vein thrombosis (Acute) Past Medical History Medical History (Updated 09/08/24 @ 07:39 by Hyun Cameron RN) Anemia GAVE (gastric antral vascular ectasia) Seasonal allergies Hx of glaucoma History of broken leg HTN (hypertension) Arthritis Family History Family History Sister Lung cancer COPD (chronic obstructive pulmonary disease) Breast cancer Afib Father DVT (deep venous thrombosis) Heart disease Family history of problems with anesthesia: No Surgical History Surgical History (Updated 09/08/24 @ 07:35 by Hyun Cameron RN) History of surgery on lower extremity Hx of esophagogastroduodenoscopy Hx of colonoscopy Hx of carpal tunnel repair History of Problems with Anesthesia: No Social History Social History Household Members: Spouse and Other Are you a primary manager home healthcare to a significant other at home: No Do you presently have visiting nurse or other home services: No Alcohol intake: former Comment: FELL IN OCTOBER AFTER MED CHANGE Patient Tobacco Use Status: Never used Tobacco Use of substances other than those prescribed or required for medical reasons: No Are you DNR?: No Advance Directives: No Advance Directives Information Provided: Yes service: No Meds Allergies Allergy/AdvReac Type Severity Reaction Status Date / Time penicillin G [PENICILLIN G] Allergy Unknown Rash Verified 09/08/24 07:39 Home Medications ?Medication ?Instructions ?Recorded ?Confirmed ?Last Taken ?Type fluticasone propionate 50 1 spray intranasal DAILY 10/30/20 09/08/24 01/23/23 History mcg/actuation nasal spray,suspension ascorbic acid (vitamin C) 500 mg 500 mg PO DAILY 12/18/22 09/08/24 Unknown History tablet (Vitamin C) ferrous sulfate 325 mg (65 mg 325 mg PO DAILY 12/18/22 09/08/24 03/24/23 History iron) tablet (iron) famotidine 40 mg tablet 40 mg PO BID 05/25/23 09/08/24 09/08/24 04:00 History acetaminophen 650 mg 650 mg PO Q8H 10/27/23 08/30/24 Unknown History tablet,extended release omega-3 fatty acids 800 mg PO DAILY 10/27/23 09/08/24 Unknown History acetaminophen 650 mg 650 mg PO Q12H PRN Pain 09/08/24 09/08/24 09/08/24 04:00 History tablet,extended release clindamycin HCl 300 mg capsule 600 mg PO 09/08/24 09/08/24 Unknown History ltsnmarksuew-iaibiwdd-udsqfy tablet 1 tab PO DAILY 09/08/24 09/08/24 Unknown History Exam Height,Weight and Vital Signs: Height 4 ft 10 in Weight 67.5 kg Assessment and Plan Assessment Anesthesia Assessment: Chart Reviewed Final Anesthetic Review Family History of Problems with Anesthesia: No History of Problems with Anesthesia: No Documented by User: Jimena Naidu MD 09/08/24 08:18 PMFSH Past Medical History Medical History (Updated 09/08/24 @ 07:39 by Hyun Cameron RN) Anemia GAVE (gastric antral vascular ectasia) Seasonal allergies Hx of glaucoma History of broken leg HTN (hypertension) Arthritis Family History Family History Sister Lung cancer COPD (chronic obstructive pulmonary disease) Breast cancer Afib Father DVT (deep venous thrombosis) Heart disease Surgical History Surgical History (Updated 09/08/24 @ 07:35 by Hyun Cameron RN) History of surgery on lower extremity Hx of esophagogastroduodenoscopy Hx of colonoscopy Hx of carpal tunnel repair Social History Social History Household Members: Spouse and Other Are you a primary manager home healthcare to a significant other at home: No Do you presently have visiting nurse or other home services: No Alcohol intake: former Comment: FELL IN OCTOBER AFTER MED CHANGE Patient Tobacco Use Status: Never used Tobacco Use of substances other than those prescribed or required for medical reasons: No Are you DNR?: No Advance Directives: No Advance Directives Information Provided: Yes service: No Meds Allergies Allergy/AdvReac Type Severity Reaction Status Date / Time penicillin G [PENICILLIN G] Allergy Unknown Rash Verified 09/08/24 07:39 Home Medications ?Medication ?Instructions ?Recorded ?Confirmed ?Last Taken ?Type fluticasone propionate 50 1 spray intranasal DAILY 10/30/20 09/08/24 01/23/23 History mcg/actuation nasal spray,suspension ascorbic acid (vitamin C) 500 mg 500 mg PO DAILY 12/18/22 09/08/24 Unknown History tablet (Vitamin C) ferrous sulfate 325 mg (65 mg 325 mg PO DAILY 12/18/22 09/08/24 03/24/23 History iron) tablet (iron) famotidine 40 mg tablet 40 mg PO BID 05/25/23 09/08/24 09/08/24 04:00 History acetaminophen 650 mg 650 mg PO Q8H 10/27/23 08/30/24 Unknown History tablet,extended release omega-3 fatty acids 800 mg PO DAILY 10/27/23 09/08/24 Unknown History acetaminophen 650 mg 650 mg PO Q12H PRN Pain 09/08/24 09/08/24 09/08/24 04:00 History tablet,extended release clindamycin HCl 300 mg capsule 600 mg PO 09/08/24 09/08/24 Unknown History djfgpqlnqqco-pkxjkzih-dhdbtx tablet 1 tab PO DAILY 09/08/24 09/08/24 Unknown History Exam Airway Mallampati Class: II TM Dist: >3cm Neck ROM: Full Assessment and Plan Assessment Anesthesia Assessment: Anesthesia Plan Discussed Final Anesthetic Review NPO: Yes ASA Class: II Final Preanesthetic Review: No Changes in Pt Med Stat, Meds/Allgs Chart Reviewed, Consent Obtained/Reviewed and Anes Risks/Benef Reviewed Patient Risk: Intermediate Procedure Risk: Low Anesthetic Plan Anesthetic Plan: TIVA Disposition: Standard PACU
--- NOTE | 2024-09-08 07:59 | MHC.SHP ---
Pre-Procedural Eval Section A - 24 Hr Update-Section A only Date of Service: 09/08/24 Section B - Complete if H&P > 30 days Chief Complaint: Iron deficiency Details of Present Illness: Seasonal allergies Hx of glaucoma History of broken leg HTN (hypertension) Arthritis Surgical History Hx of esophagogastroduodenoscopy Hx of colonoscopy Hx of carpal tunnel repair Present Medications: see Short Stay Collaborative assessment Allergies: Allergies Allergy/AdvReac Type Severity Reaction Status Date / Time penicillin G [PENICILLIN G] Allergy Unknown Rash Verified 09/08/24 07:39 Review of Systems Review of Systems Comment: Ten point ROS negative Exam Exam Comment: Gen appear: No acute distress HEENT: no icterus Chest: No overt resp distress Abd: soft, nontender, nondistended Psych: Stable affect, answering questions appropriately Neuro: A/Ox3 noted to move all extremities spontaneously Ext: no peripheral edema Plan Diagnosis/Plan: Unchanged I have reviewed the history and physical and performed a pertinent physical examination on my patient. No changes have occurred unless specified. Time Spent With Patient Time: Total time managing care of this patient today ____ minutes.
[2024-09-08 08:09] VITALS: BP 156/60; PULSE 97; RESP 15; TEMP 37.2; O2SAT 98; BMI 32.0
[2024-09-08] MEDS: Lactated Ringers 1,000 ML 100 ML IVCONT (08:11)
--- NOTE | 2024-09-08 09:00 | P.OP_ITS ---
Operative Note Operative Note Date of Service: 09/08/24 Narrative: Procedure:?Esophagogastroduodenoscopy Endoscopist:?Loreta Rice MD Indication:?Anemia, GAVE Anesthesia Provider:?Dr Jimena Naidu Anesthesia Type:?MAC Instrument:?Olympus [id number]-H190 EGD Procedure:?? The procedure, indications, preparation and potential complications were reviewed with the patient, who indicated understanding and gave written informed consent to proceed. A physical exam was performed. The endoscope was introduced through the mouth, and advanced to the second part of duodenum. The mucosa was carefully examined on slow withdrawal of the endoscope.? There were no immediate complications.? Patient tolerated the procedure well. EGD Findings:? * Esophagus:? Normal mucosa noted in the entire esophagus.? The Z-line is at 32 cm. There was a hiatal hernia with a diaphragmatic pinch at 36 cm.? * Stomach:? 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 Some with spontaneous at the time of exam and likely explain the recent drop in H/H. This was ablated with Argon plasma coagulation using circumferential catheter. Retroflexion was performed in the fundus and showed Hill grade III hiatal hernia. * Duodenum:?Normal duodenal mucosa to the extent visualised. Impression: 1. Normal esophageal mucosa 2. Hiatal hernia 3. Bleeding GAVE (APC) 4. Normal duodenum Recommendations: - Sucralfate 10 mm QID x 2 weeks. Pt advise to crush the tabs and mix in water to make slurry which may be easier to swallow. - Continue Famotidine, reducing dose to 20 mg BID - Repeat EGD in 3 months.
[2024-09-08 09:10] VITALS: BP 126/52; PULSE 90; RESP 16; TEMP 36.8; O2SAT 98
[2024-09-08 09:15] VITALS: BP 126/52; PULSE 86; RESP 18; O2SAT 98
[2024-09-08 09:32] VITALS: BP 130/59; PULSE 79; RESP 18; TEMP 36.7; O2SAT 98
== END 2024-09-08 09:56 | disposition home or self-care (01) ==
PROVIDERS: PCP Internal Medicine; Visit Provider Internal Medicine
PROC: 0DJ08ZZ Inspection of Upper Intestinal Tract, Via Natural or Artificial Opening Endoscopic (ICD-10-PCS; CPT 43235; principal; 2024-09-08 09:10)
DX: K31.811 Angiodysplasia of stomach and duodenum with bleeding (principal); K44.9 Diaphragmatic hernia without obstruction or gangrene; E61.1 Iron deficiency; I12.9 Hypertensive chronic kidney disease with stage 1 through stage 4 chronic kidney disease, or unspecified chronic kidney disease; N18.30 Chronic kidney disease, stage 3 unspecified
CPT/HCPCS: 43255; C1889; J2003; J2704

== ENCOUNTER → 2024-09-08 07:22 | Outpatient (BNV) | payer MEDICARE, SELFPAY | PROVIDERS: PCP Internal Medicine; Visit Provider Internal Medicine | DX: K31.819 Angiodysplasia of stomach and duodenum without bleeding (principal); D64.9 Anemia, unspecified | CPT/HCPCS: 43270 ==

== ENCOUNTER 2024-09-30 12:49 | Outpatient (AMB) | payer MEDICARE, SELFPAY ==
--- NOTE | 2024-09-30 12:53 | A.OFFVIS_ITS ---
Vital Signs 09/30/24 12:55 Height 4 ft 11 in Weight 149 lb 14.629 oz BMI 30.3 BP 155/61 H Blood Pressure Location Lt brachial Position Sitting Pulse 81 Intake Visit Reasons: S/P egd Intake Note: Loreto presents in the office as a follow up for her EGD. CC: She states that the medication she was given did not agree with her. She is care home through the bottle. She states that she is talking about the sucralfate and also omeprazole did not agree with her as well. She had no taste after a while with some upset stomach. Allergies penicillin G [PENICILLIN G] Allergy (Unknown, Verified 09/08/24 07:39) Rash HPI Comments Details: 72 y.o F with PMH of HTN, seasonal allergies and arthritis who is here for severe RORO. 01/13/23: Pt reports noticing decreased stamina and shortness of breath on strenuous activities such as shoveling snow in Jun that has progressively worsened over the past few months. She reports finding out about anemia in October when she had blood work through orthopedics and was ntoed to have a Hb of 6.8. Was started on iron supplements and also followed up with Heme. Underwent x2u PRBC transfusion on 12/18. Was taking celebrex for arthritis which she stopped in October, otherwise no NSAID use. Does not report any gastrointestinal complaints to include abd pain, N, V, melena or hematochezia. No change in appetite or unintentional weight loss. Last colo was in her 50s (Dr Marquez) and was given a 10y interval however has been doing annual stool cards instead. No fam hx of CRC in first degree relatives. 01/23/23 EGD/colo: Impression: 1. Normal esophageal mucosa 2. Hiatal hernia 3. GAVE (APC) 4. Normal duodenum (biopsy) 5. Normal colon and terminal ileum mucosa 6. Total 3 polyps removed, 2 retrieved. 7. Internal hemorrhoids Path: A.? Duodenum, biopsy:? Duodenal mucosa with preserved villi and no specific change. B.? Stomach, random, biopsy:? Gastric body mucosa with minimal chronic inactive gastritis; negative for H pylori, intestinal metaplasia and dysplasia; gastric antral vascular ectasia cannot be confirmed.? C.? Colon, transverse, 2 polyps:? Tubular adenomas (2 pieces); negative for high-grade dysplasia and carcinoma. 02/02/23: CT Abd/pel: GASTROINTESTINAL TRACT: The small and large bowel are unremarkable. The appendix is unremarkable.? 02/04/23: Comes in today without any abdominal complaints including abd pain, N,V,D or change in bowel habits. EGD/colo results reviewed. CT results reviewed. 03/26/23: EGD (Dr Mittal) Larynx:normal Esophagus: GE junction at 34 cm, diaphragm hiatus at 40 cm, 6 cm hiatal hernia noted, streaky erythema noted within the hernia sac Stomach: Patchy gastric erythema in the antrum consistent with moderate severe GAVE (Gastric antral vascular ectasia) . Hybrid APC was performed effect 40 and 60 W to the erythematous areas and then hemospray applied. Grade 2 flap valve on retroflexed examination of the cardia. Duodenum: Normal bulb and descending duodenum, Intervention: hybrid APC to GAVE 04/08/23: Comes in for post-EGD follow up. Reports was not able to get nexium covered through her insurance. Also had trouble with sucralfate. Was also apprehensive about previous EGD findings. This was all clarified. Main CC today is nausea and dysgeusia since the EGD otherwise no other issues. Due to see Dr Wong in 2 weeks. 09/08/24: 1. Normal esophageal mucosa 2. Hiatal hernia 3. Bleeding GAVE (APC) 4. Normal duodenum 09/30/24: Here for post egd follow up. Reports carafate did not agree with her so only took it for a week. Has no active Gi issues. Wonders if the celecoxib she took for her knee back in 2022 triggered and reviewed difficult to ascertain in hindsight. [facility] Medical History (Updated 09/08/24 @ 07:39 by Hyun Cameron, RN) Anemia GAVE (gastric antral vascular ectasia) Seasonal allergies Hx of glaucoma History of broken leg HTN (hypertension) Arthritis Surgical History (Updated 09/08/24 @ 07:35 by Hyun Cameron RN) History of surgery on lower extremity Hx of esophagogastroduodenoscopy Hx of colonoscopy Hx of carpal tunnel repair Family History Sister Lung cancer COPD (chronic obstructive pulmonary disease) Breast cancer Afib Father DVT (deep venous thrombosis) Heart disease Social History Household Members: Spouse and Other Are you a primary date night caregiver to a significant other at home: No Do you presently have visiting nurse or other home services: No Alcohol intake: former Patient Tobacco Use Status: Never used Tobacco service: No Review of Systems Const All systems reviewed & are unremarkable except as noted in HPI and below Physical Exam Vital Signs: Last Vital Signs Pulse 81 09/30/24 12:55 BP 155/61 H 09/30/24 12:55 BMI result Body Mass Index 30.3 No apparent distress Nonicteric Abdomen soft, nontender, nondistended Alert and oriented x3, normal gait Assessment & Plan Assessment & Plan (1) Iron deficiency: Code(s): E61.1 - Iron deficiency Category: Medical (2) Anemia: Code(s): D64.9 - Anemia, unspecified Category: Medical Plan Reviewed that will need to follow up endoscopic ablation at least q3-4m to avoid worsening of GAVE. If minimal response to 3 consecutive sessions, will consider octreotide LAR. From prev visit:Reviewed natural progression and options for endoscopic hemostasis including APC, and EBL if needed. Reviewed that typically this responds well to above but if refractory can consider other options such as cryo. Recommendations: - EGD to be booked in the next 3 months - Cont famotidine 20 BID - CBC in 4 weeks to ensure pt doesnt need EGD sooner than December Follow up after next EGD Coding Level of Care Code Est Pt Level 3 (27620) Diagnoses Iron deficiency E61.1 Anemia D64.9
[2024-09-30 12:55] VITALS: BP 155/61; PULSE 81; BMI 30.3
== END 2024-09-30 13:20 | disposition home or self-care (01) ==
LOC: HO.HGI 12:49
PROVIDERS: PCP Internal Medicine; Visit Provider Internal Medicine
DX: E61.1 Iron deficiency (principal); D64.9 Anemia, unspecified
CPT/HCPCS: 99213

== ENCOUNTER → 2024-09-30 12:49 | Outpatient (BNVA) | payer MEDICARE, SELFPAY | PROVIDERS: PCP Internal Medicine; Visit Provider Internal Medicine | DX: E61.1 Iron deficiency (principal); D64.9 Anemia, unspecified | CPT/HCPCS: 99212 ==

== ENCOUNTER 2024-11-22 11:49 | Outpatient (REF) | payer MEDICARE, SELFPAY ==
[2024-11-22 12:32] LABS: MANUAL DIFF FLAG NO
[2024-11-22 12:54] LABS: Basophils Percent Auto 0.4 % (0-2); Eosinophils Absolute Auto 0.1 X10*3/uL (0.0-0.4); Eosinophils Percent Auto 0.9 % (0-4); Hematocrit 34.3 % (37.0-47.0); Hemoglobin 10.7 g/dl (12.0-16.0); Imm Gran Abs Auto 0.05 X10*3/uL (0.00-0.03); Imm Gran Pct Auto 0.7 % (0.0-0.4); Lymphocytes Absolute Auto 1.3 X10*3/uL (1.2-4.9); Lymphocytes Percent Auto 17.5 % (20-40); Mean Corpuscular HGB Conc 31.2 g/dl (31.0-35.0); Mean Corpuscular Hemoglobin 30.1 pg (27.0-33.0); Mean Corpuscular Volume 96.3 fL (80.0-98.0); Mean Platelet Volume 8.4 fL (9.4-12.3); Monocytes Absolute Auto 0.7 X10*3/uL (0.1-1.2); Monocytes Percent Auto 9.7 % (2-11); Neutrophils Absolute Auto 5.2 x10*3/uL (2.0-8.3); Neutrophils Percent Auto 70.8 % (45-73); Platelet Count 282 X10*3/uL (160-400); Red Blood Count 3.56 X10*6/uL (4.20-5.50); Red Cell Distribution Width 12.6 % (11.0-16.0); White Blood Count 7.4 X10*3/uL (4.8-10.8)
[2024-11-22 13:24] LABS: Alanine Aminotransferase 26 U/L (0-31); Albumin Level 4.6 g/dL (3.5-5.0); Alkaline Phosphatase 95 U/L (39-117); Anion Gap 14 (12-20); Aspartate Amino Transferase 24 U/L (5-31); Bilirubin Total 0.3 mg/dL (0.0-1.0); Blood Urea Nitrogen 27 mg/dL (9-16); Calcium 9.8 mg/dL (8.4-10.2); Carbon Dioxide 28 mmol/L (22-29); Chloride 105 mmol/L (96-108); Estimated Glomerular Filt Rate > 60; Glucose Random 104 mg/dL (60-115); Iron 28 mcg/dL (30-160); Percent Iron Saturation 8 % (15-50); Potassium 4.6 mmol/L (3.3-5.1); Sodium 142 mmol/L (135-145); Total Iron Binding Capacity 336 mcg/dL (228-428); Total Protein 7.2 g/dL (6.5-8.0); Unsaturated Iron Binding 308 ug/dL
--- OUTSIDE RECORDS SUMMARY | 2024-11-22 13:34 | XMS_ITS | Patient Health Record ---
[facility] elaina [place] Address [address] [place] [address] Care Team Providers Care Beef Trimmer Name Role Phone Richard Li MD Primary Care Provider Unavaila Vera Mcgraw Unavailable [phone] Allergies Allergen (clinical drug ingredient) Drug/Non Drug Allergy documented on EMR Reaction Allergy Type Onset Date Status Penicillin rash, spots Drug Allergy Acti ve Reason For Referral No Information Medications Medication SIG (Take, Route, Frequency, Duration) Notes Start Date End Date Status Centrum Silver 50+Women Active Flonase Allergy Relief Active Calcium Active Vitamin B6 100mg Act maciej Glucosamine Active Move Free Joint Health Advance Active Lisinopril 10 MG Orally twice a day Active Social History Tobacco Use: Social History Observation Description Date Details (start date - stop date) Never Smoker NA - NA Tobacco Use/Smoking Question Answer Notes Are you a: nonsmoker Additional Findings: Tobacco Non-User Current no n-smoker Alcohol Screen Question Answer Notes Did you have a drink containing alcohol in the p ast year? No Points 0 Interpretation Negative Tobacco use other than smoking: Question Answer Notes Are you an other tobacco user? No Plan Of Treatment Pending Test Test Name Order Date [id number], 1-11/25/2017 Insurance Providers Payer Name Payer Address Payer Phone Subscriber Number Group Number Insured Name Patient Relationship to Insured Coverage Start Date Coverage End Date [employer] 65 Medicare Preferred [address] [place] [address] [id number] Loreto Crespo Self - patient is the insured Medical (General) History Medical History History ICD Code osteoarthritis Glaucoma High blood pressure Sciatica Measles Mumps Chicken pox
[2024-11-22 13:42] LABS: Ferritin 35 ng/mL (10-250)
[2024-11-22 13:52] LABS: Folate 14.5 ng/mL (> or = 4.0); Vitamin B12 1242 pg/mL (200-900)
== END 2024-11-22 11:50 | disposition home or self-care (01) ==
LOC: HO.LAB 11:49
PROVIDERS: Internal Medicine; PCP Internal Medicine; Visit Provider Internal Medicine Medical Oncology
DX: D64.9 Anemia, unspecified (principal); E61.1 Iron deficiency
CPT/HCPCS: 36415; 80053; 82607; 82728; 82746; 83540; 85025; 85027

== ENCOUNTER 2024-11-24 13:35 | Outpatient (AMB) | payer MEDICARE, SELFPAY ==
[2024-11-24 13:48] VITALS: BP 140/76; PULSE 81; TEMP 36.4; O2SAT 99; BMI 30.1
--- NOTE | 2024-11-24 13:48 | A.OFFPC_ITS ---
Vital Signs 11/24/24 13:48 Height 4 ft 11 in Weight 149 lb BMI 30.1 BP 140/76 H Blood Pressure Location Lt brachial Position Sitting Pulse 81 Pulse Source Pulse Oximeter Temp 97.6 F Temp Source Axillary Pulse Oximetry (%) 99 Oxygen Delivery Method Room Air Intake Visit Reasons: Routine Materials Recycler Required: No Accompanied by: Self / Same As Patient Allergies penicillin G (PENICILLIN G) Allergy (Unknown, Verified 11/24/24 13:48) Rash Tobacco use date assessed: 11/24/24 Fall risk assessment: 1 Fall in past year Last assessed Fall Risk: 11/24/24 Dental Screening Dental Screen Date: 11/24/24 Did you have a dental visit in the last 12 months?: Yes Did you have a dental problem in the last 6 months where you did not have access to dental care?: No HPI HPI Comments History of Present Illness Details 72 y.o F with PMH of HTN, seasonal aller gies and arthritis, RORO, GAVE, presenting for follow up CV: On amlodipine. 140/76. Denies chest pain, exertional dyspnea. She has flushing and ankle swelling swelling. Anemia-Follows with GI, hematology, nephrology. Last hemoglobin was increased and stable GI: Has GAVE. 09/08/24: 1. Normal esophageal mucosa 2. Hiatal hernia 3. Bleeding GAVE (APC) 4. Normal duodenum 01/13/2023: Double endoscopy MSK: Polyarthraliga. Sees Dr Forbes. Receives hand shots, neck injections. Knee OA. Had 3 right knee surgeries. Mammo 03/2024 ROS CONSTITUTIONAL: Denies weight loss, fever and chills. HEENT: Denies changes in vision and hearing. RESPIRATORY: Denies SOB and cough. CV: Denies palpitations and CP GI: Denies abdominal pain, nausea, vomiting and diarrhea. : Denies dysuria and urinary frequency. MSK: Denies new myalgia and joint pain. SKIN: Denies rash and pruritus. NEUROLOGICAL: Denies headache PSYCHIATRIC: Denies recent changes in mood. PHYSICAL EXAM: GENERAL: Alert and oriented x 3. NAD EYES: EOMI. Anicteric. HENT: Moist mucous membranes. No scleral icterus. No cervical lymphadenopathy. LUNGS: Clear to auscultation bilaterally. CARDIOVASCULAR: Regular rate and rhythm. No murmur. No JVD. ABDOMEN: Soft, non-tender +bs EXTREMITIES: No edema. Non-tender. SKIN: No rashes or lesions. Warm. NEUROLOGIC: No focal neurological deficits. CN II-XII grossly intact PSYCHIATRIC: Cooperative. Appropriate mood and affect [facility] Medical History Anemia GAVE (gastric antral vascular ectasia) Seasonal allergies Hx of glaucoma History of broken leg HTN (hypertension) Arthritis Surgical History History of surgery on lower extremity Hx of esophagogastroduodenoscopy Hx of colonoscopy (~01/23/23) Hx of carpal tunnel repair Family History Sister Lung cancer COPD (chronic obstructive pulmonary disease) Breast cancer Afib Father DVT (deep venous thrombosis) Heart disease Social History Household Members: Spouse and Other Housing: House Are you a primary adult care manager to a significant other at home: No Do you presently have visiting nurse or other home services: No Alcohol intake: former Patient Tobacco Use Status: Never used Tobacco e-Cigarette/Vaping Use: Never Used service: No Current occupational status: retired Cognitive needs: No Hearing needs: No Vision needs: Yes (rx glasses) Questionnaire PHQ-9 Over the last 2 weeks, how often have you been bothered by any of the following problems? 1. Little interest or pleasure in doing things: not at all 2. Feeling down, depressed, or hopeless: not at all 3. Trouble falling or staying asleep, or sleeping too much: not at all 4. Feeling tired or having little energy: not at all 5. Poor appetite or overeating: not at all 6. Feeling bad about yourself - or that you are a failure or have let yourself or your family down: not at all 7. Trouble concentrating on things, such as reading the newspaper or watching television: not at all 8. Moving or speaking so slowly that other people could have noticed. Or the opposite - being so fidgety or restless that you have been moving around a lot more than usual: not at all 9. Thoughts that you would be better off or of hurting yourself in some way: not at all Total score: 0 Depression Screening Interpretation: Negative Depression Screening Done: Yes 61315 - PHQ-9 Billing: Yes Source: Developed by Drs. Toan Sparks, Warren Trejo and colleagues, with an educational dione from [employer]. Thrive Questionnaire Date Thrive assessed: 11/24/24 I am a: Patient Within the past 12 months, did the food you bought not last and you didn't have the money to get more?: Never true Within the past 12 months, did you worry whether your food would run out before you got money to buy more?: Never true Do you have trouble paying for medicines?: No Do you have trouble getting transportation to medical appointments?: No Do you have trouble paying your heating and electricity bill?: No Do you have trouble taking care of your child, family member or friend?: No Do you have trouble with day-to-day activities such as bathing, preparing meals, shopping, managing finances, etc.?: No Are you currently unemployed and looking for a job?: No Are you interested in more education?: No THRIVE Score: 0 AUDIT C Alcohol Use Questionnaire (AUDIT-C) 1. How often do you have a drink containing alcohol?: Never 3. How often do you have six or more drinks on one occasion?: Never Total Score: 0 JC-7 AMB Questionnaire JC-7 Date JC - 7 assessed: 11/24/24 Feeling nervous, anxious, or on edge: 0 = Not at all Not being able to stop or control worryin = Not at all Worrying too much about different things: 0 = Not at all Trouble relaxin = Not at all Being so restless that it is hard to sit still: 0 = Not at all Becoming easily annoyed or irritable: 0 = Not at all Feeling afraid as if something awful might happen: 0 = Not at all Total JC-7 score (0-4 normal; 5-9 mild; 10-14 moderate; 15-21 severe): 0 Source: Developed by Drs. Toan Sparks, Warren Trejo and colleagues, with an educational dione from [employer]. Physical exam (Primary Care) Vital Signs: Last Vital Signs Temp 97.6 F 11/24/24 13:48 Pulse 81 11/24/24 13:48 BP 140/76 H 11/24/24 13:48 Pulse Ox 99 11/24/24 13:48 Oxygen Delivery Method Room Air 11/24/24 13:48 BMI result Body Mass Index 30.1 Tobacco/Smoking Status: Tobacco use Status Tobacco use date assessed 11/24/24 11/24/24 13:51 Patient Tobacco Use Status Never used Tobacco 11/24/24 14:23 e-Cigarette/Vaping Use Never Used 11/24/24 14:23 PHQ-9: PHQ-9 Score PHQ-9: Total score 0 11/27/24 13:22 Depression Screening Interpretation: Negative Thrive Assessment: Date of Thrive Assessment Date Thrive assessed 11/24/24 11/24/24 14:23 Coding Level of Care Code New Pt Level 4 (37703) Complex EM visit Add On G2211 Diagnoses Primary hypertension I10 Hypertension type: primary hypertension Seasonal allergies J30.2 GAVE (gastric antral vascular ectasia) K31.819 Stage 3a chronic kidney disease N18.31 Chronic kidney disease stage 3 subtype: stage 3a (GFR 45-59) Iron deficiency E61.1 Additional Codes PHQ-9 - 80916 - PHQ-9 Billing: Yes ([id number]) Assessment & Plan Assessment & Plan (1) HTN (hypertension): Code(s): I10 - Essential (primary) hypertension Category: Medical Qualifiers: Hypertension type: primary hypertension Qualified Code(s): I10 - Essential (primary) hypertension (2) Seasonal allergies: Code(s): J30.2 - Other seasonal allergic rhinitis Category: Medical (3) GAVE (gastric antral vascular ectasia): Code(s): K31.819 - Angiodysplasia of stomach and duodenum without bleeding Category: Medical (4) CKD (chronic kidney disease) stage 3, GFR 30-59 ml/min: Code(s): N18.30 - Chronic kidney disease, stage 3 unspecified Category: Medical Qualifiers: Chronic kidney disease stage 3 subtype: stage 3a (GFR 45-59) Qualified Code(s): N18.31 - Chronic kidney disease, stage 3a (5) Iron deficiency: Code(s): E61.1 - Iron deficiency Category: Medical Plan 74 yo to establish care Past surgical, social, family history reviewed Mammo ordered-due in march Polyarthralgia-continues follow up with arthritis treatment center Orders: Orders Rheumatoid Factor 11/24/24 M25.50 - Pain in unspecified joint Cyclic Citrullinated Peptide 11/24/24 M25.50 - Pain in unspecified joint MM screening mammo BI 4 Months Z12.31 - Encounter for screening mammogram for malignant neoplasm of breast
--- OUTSIDE RECORDS SUMMARY | 2024-11-24 14:46 | XMS_ITS | Patient Health Record ---
[facility] [place] Address [address] [address] Care Team Providers Care Crystalizer Tender Name Role Phone Richard Li MD Primary Care Provider Unavaila Vera Mcgraw Unavailable [phone] Allergies Allergen (clinical drug ingredient) Drug/Non Drug [...] Treatment Pending Test Test Name Order Date 11723-Iqqu, 1-11/25/2017 Insurance Providers Payer Name Payer Address Payer Phone Subscriber Number Group Number Insured Name Patient Relationship to Insured Coverage Start Date Coverage End Date [employer] 65 Medicare Preferred [address] [place] [address] [id number] Loreto Crespo Self - patient is the insured Medical (General) History Medical History History ICD Code osteoarthritis Glaucoma High blood pressure Sciatica Measles Mumps Chicken pox
== END 2024-11-24 14:51 | disposition home or self-care (01) ==
LOC: HO.HMCHD 13:35
PROVIDERS: PCP Internal Medicine; Visit Provider Internal Medicine
DX: I10 Essential (primary) hypertension (principal); J30.2 Other seasonal allergic rhinitis; K31.819 Angiodysplasia of stomach and duodenum without bleeding; N18.31 Chronic kidney disease, stage 3a; E61.1 Iron deficiency

== ENCOUNTER → 2024-11-24 13:35 | Outpatient (BNVA) | payer MEDICARE, SELFPAY | PROVIDERS: PCP Internal Medicine; Visit Provider Internal Medicine | DX: I12.9 Hypertensive chronic kidney disease with stage 1 through stage 4 chronic kidney disease, or unspecified chronic kidney disease (principal); N18.31 Chronic kidney disease, stage 3a; J30.2 Other seasonal allergic rhinitis; K31.819 Angiodysplasia of stomach and duodenum without bleeding; E61.1 Iron deficiency; Z79.899 Other long term (current) drug therapy; Z13.31 Encounter for screening for depression; Z13.30 Encounter for screening examination for mental health and behavioral disorders, unspecified | CPT/HCPCS: 96127; 99202 ==

== ENCOUNTER 2024-12-15 07:16 | Day surgery (SDC) | payer MEDICARE, SELFPAY ==
--- OUTSIDE RECORDS SUMMARY | 2024-12-01 07:02 | XMS_ITS | Patient Health Record ---
Author [facility] [place] Address [address] [place] [address] Care Team Providers Care Comfort Filler Name Role Phone Richadr Li MD Primary Care Provider Unavaila Vera Mcgraw Unavailable [phone] Allergies Allergen (clinical drug ingredient) Drug/Non Drug [...] Treatment Pending Test Test Name Order Date [id number]-Pcuz, 1-11/25/2017 Insurance Providers Payer Name Payer Address Payer Phone Subscriber Number Group Number Insured Name Patient Relationship to Insured Coverage Start Date Coverage End Date [facility] 65 Medicare Preferred [address] [place] [address] [id number] Loreto Crespo Self - patient is the insured Medical (General) History Medical History History ICD Code osteoarthritis Glaucoma High blood pressure Sciatica Measles Mumps Chicken pox
[2024-12-13 08:14] VITALS: BMI 30.1
--- NOTE | 2024-12-14 09:52 | HO.ANESPROP2 ---
Documented by User: Elida Ricks NP 12/14/24 09:54 HPI - Anesthesia Eval Consult details Narrative: 74yo F for Upper Endoscopy s/p same 09/2024 with TIVA PMFSH Active Problems Active Problems: All Active Problems B12 deficiency (Acute) Seasonal allergies (Acute) Polyarthralgia (Acute) GAVE (gastric antral vascular ectasia) (Acute) Hyperkalemia (Acute) CKD (chronic kidney disease) stage 3, GFR 30-59 ml/min (Acute) Personal history of colonic polyps (Acute) Hypercalcemia (Acute) Iron deficiency (Acute) Anemia (Acute) Family history of deep vein thrombosis (Acute) HTN (hypertension) (Acute) Past Medical History Medical History Anemia GAVE (gastric antral vascular ectasia) Seasonal allergies Hx of glaucoma History of broken leg HTN (hypertension) Arthritis Family History Family History Sister Lung cancer COPD (chronic obstructive pulmonary disease) Breast cancer Afib Father DVT (deep venous thrombosis) Heart disease Family history of problems with anesthesia: No Surgical History Surgical History History of surgery on lower extremity Hx of esophagogastroduodenoscopy Hx of colonoscopy (~01/23/23) Hx of carpal tunnel repair History of Problems with Anesthesia: No Social History Social History Household Members: Spouse and Other Housing: House Are you a primary lead caregiver to a significant other at home: No Do you presently have visiting nurse or other home services: No Alcohol intake: former Patient Tobacco Use Status: Never used Tobacco e-Cigarette/Vaping Use: Never Used Have you been hit, kicked, punched, or otherwise hurt by someone within the past year? If so, by whom?: No Are you DNR?: No Advance Directives: No Advance Directives Information Provided: Yes Poor oral hygiene: No service: No Current occupational status: retired Cognitive needs: No Hearing needs: No Vision needs: Yes (rx glasses) Meds Allergies Allergy/AdvReac Type Severity Reaction Status Date / Time penicillin G (PENICILLIN G) Allergy Unknown Rash Verified 12/15/24 08:17 Home Medications ?Medication ?Instructions ?Recorded ?Confirmed ?Last Taken ?Type fluticasone propionate 50 1 spray intranasal DAILY 10/30/20 12/15/24 01/23/23 History mcg/actuation nasal spray,suspension ascorbic acid (vitamin C) 500 mg 500 mg PO DAILY 12/18/22 12/15/24 Unknown History tablet (Vitamin C) ferrous sulfate 325 mg (65 mg 325 mg PO DAILY 12/18/22 12/15/24 03/24/23 History iron) tablet (iron) omega-3 fatty acids 800 mg PO DAILY 10/27/23 12/15/24 Unknown History acetaminophen 650 mg 650 mg PO Q12H PRN Pain 09/08/24 12/15/24 12/15/24 History tablet,extended release oroiqxfrkmsq-ndkjlwnj-rzbrcw tablet 1 tab PO DAILY 09/08/24 12/15/24 Unknown History Exam Height,Weight and Vital Signs: Height 4 ft 11 in Weight 67.585 kg Pertinent Lab Results Pertinent Lab Results: Laboratory Tests 11/22/24 11/22/24 12:19 12:30 WBC 7.4 Hgb 10.7 L Hct 34.3 L Plt Count 282 D Sodium 142 Potassium 4.6 Chloride 105 Carbon Dioxide 28 BUN 27 H Creatinine 0.90 Assessment and Plan Assessment Anesthesia Assessment: Chart Reviewed Final Anesthetic Review Family History of Problems with Anesthesia: No History of Problems with Anesthesia: No Documented by User: Loi Johns MD 12/15/24 09:08 [facility] Past Medical History Medical History Anemia GAVE (gastric antral vascular ectasia) Seasonal allergies Hx of glaucoma History of broken leg HTN (hypertension) Arthritis Functional capacity: independent ambulation Family History Family History Sister Lung cancer COPD (chronic obstructive pulmonary disease) Breast cancer Afib Father DVT (deep venous thrombosis) Heart disease Surgical History Surgical History History of surgery on lower extremity Hx of esophagogastroduodenoscopy Hx of colonoscopy (~01/23/23) Hx of carpal tunnel repair Social History Social History Household Members: Spouse and Other Housing: House Are you a primary lead caregiver to a significant other at home: No Do you presently have visiting nurse or other home services: No Alcohol intake: former Patient Tobacco Use Status: Never used Tobacco e-Cigarette/Vaping Use: Never Used Have you been hit, kicked, punched, or otherwise hurt by someone within the past year? If so, by whom?: No Are you DNR?: No Advance Directives: No Advance Directives Information Provided: Yes Poor oral hygiene: No service: No Current occupational status: retired Cognitive needs: No Hearing needs: No Vision needs: Yes (rx glasses) Meds Allergies Allergy/AdvReac Type Severity Reaction Status Date / Time penicillin G (PENICILLIN G) Allergy Unknown Rash Verified 12/15/24 08:17 Home Medications ?Medication ?Instructions ?Recorded ?Confirmed ?Last Taken ?Type fluticasone propionate 50 1 spray intranasal DAILY 10/30/20 12/15/24 01/23/23 History mcg/actuation nasal spray,suspension ascorbic acid (vitamin C) 500 mg 500 mg PO DAILY 12/18/22 12/15/24 Unknown History tablet (Vitamin C) ferrous sulfate 325 mg (65 mg 325 mg PO DAILY 12/18/22 12/15/24 03/24/23 History iron) tablet (iron) omega-3 fatty acids 800 mg PO DAILY 10/27/23 12/15/24 Unknown History acetaminophen 650 mg 650 mg PO Q12H PRN Pain 09/08/24 12/15/24 12/15/24 History tablet,extended release ikrgtmmkmmqe-mkhhrqof-ttulyk tablet 1 tab PO DAILY 09/08/24 12/15/24 Unknown History Exam Exam Date and Time: 12/15/2024 Airway TM Dist: >3cm Neck ROM: Full Loose/Missing/Broken Teeth: No Heart: rrr Lungs: cta Other: normal Assessment and Plan Assessment Anesthesia Assessment: Anesthesia Plan Discussed Final Anesthetic Review NPO: Yes ASA Class: II Final Preanesthetic Review: No Changes in Pt Med Stat, Meds/Allgs Chart Reviewed, Consent Obtained/Reviewed and Anes Risks/Benef Reviewed Patient Risk: Low Procedure Risk: Low Anesthetic Plan Anesthetic Plan: MAC: Disposition: Standard PACU
[2024-12-15 08:03] VITALS: BMI 29.9
[2024-12-15] MEDS: Lactated Ringers 1,000 ML 100 ML IVCONT (08:21)
[2024-12-15 08:24] VITALS: BP 148/62; PULSE 92; RESP 18; TEMP 36.7; O2SAT 99
--- NOTE | 2024-12-15 08:53 | MHC.SHP ---
Pre-Procedural Eval Section A - 24 Hr Update-Section A only Date of Service: 12/15/24 Section B - Complete if H&P > 30 days Chief Complaint: Angiodysplasia of stomach and duodenum without Details of Present Illness: Seasonal allergies Hx of glaucoma History of broken leg HTN (hypertension) Arthritis Surgical History Hx of esophagogastroduodenoscopy Hx of colonoscopy Hx of carpal tunnel repair Present Medications: see Short Stay Collaborative assessment Allergies: Allergies Allergy/AdvReac Type Severity Reaction Status Date / Time penicillin G (PENICILLIN G) Allergy Unknown Rash Verified 12/15/24 08:17 Review of Systems Review of Systems Comment: Ten point ROS negative Exam Exam Comment: Gen appear: No acute distress HEENT: no icterus Chest: No overt resp distress Abd: soft, nontender, nondistended Psych: Stable affect, answering questions appropriately Neuro: A/Ox3 noted to move all extremities spontaneously Ext: no peripheral edema Plan Diagnosis/Plan: Unchanged I have reviewed the history and physical and performed a pertinent physical examination on my patient. No changes have occurred unless specified. Time Spent With Patient Time: Total time managing care of this patient today ____ minutes.
[2024-12-15 09:35] VITALS: BP 135/52; PULSE 75; RESP 18; TEMP 36.5; O2SAT 95
--- NOTE | 2024-12-15 09:39 | P.OP_ITS ---
Operative Note Operative Note Date of Service: 12/15/24 Narrative: Procedure:?Esophagogastroduodenoscopy Endoscopist:?Loreta Rice MD Indication:?Anemia, GAVE Anesthesia Provider:?Dr Johns Anesthesia Type:?MAC Instrument:?Olympus [id number]-H190 EGD Procedure:?? The procedure, indications, preparation and potential complications were reviewed with the patient, who indicated understanding and gave written informed consent to proceed. A physical exam was performed. The endoscope was introduced through the mouth, and advanced to the second part of duodenum. The mucosa was carefully examined on slow withdrawal of the endoscope.? There were no immediate complications.? Patient tolerated the procedure well. EGD Findings:? * Esophagus:? Normal mucosa noted in the entire esophagus.? The Z-line is at 34 cm. There was a hiatal hernia with a diaphragmatic pinch at 38 cm.? * Stomach:? 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 The area involved was smaller than last time. There was small amount of old blood in antrum likely from spontaneous GAVE bleeding. This was ablated with Argon plasma coagulation using circumferential catheter. Retroflexion was performed in the fundus and showed Hill grade III hiatal hernia. * Duodenum:?Normal duodenal mucosa to the extent visualised. Impression: 1. Normal esophageal mucosa 2. Hiatal hernia 3. Bleeding GAVE (APC) 4. Normal duodenum Recommendations: - Sucralfate 10 ml TID x 2 weeks. Pt already has this at home. - Continue Famotidine 20 mg BID - Repeat EGD in 3-4 months. If GAVE looks unchanged at next EGD, will trial band ligation.
[2024-12-15 09:50] VITALS: BP 119/52; PULSE 87; RESP 16; O2SAT 96
[2024-12-15 10:04] VITALS: BP 127/44; PULSE 80; RESP 16; TEMP 36.4; O2SAT 97
== END 2024-12-15 10:39 | disposition home or self-care (01) ==
PROVIDERS: PCP Internal Medicine; Visit Provider Internal Medicine
PROC: 0DJ08ZZ Inspection of Upper Intestinal Tract, Via Natural or Artificial Opening Endoscopic (ICD-10-PCS; CPT 43235; principal; 2024-12-15 09:00)
DX: K31.811 Angiodysplasia of stomach and duodenum with bleeding (principal); K44.9 Diaphragmatic hernia without obstruction or gangrene; D64.9 Anemia, unspecified; E61.1 Iron deficiency; I10 Essential (primary) hypertension; M19.90 Unspecified osteoarthritis, unspecified site; Z87.81 Personal history of (healed) traumatic fracture; J30.2 Other seasonal allergic rhinitis; Z79.899 Other long term (current) drug therapy; Z88.0 Allergy status to penicillin; Z98.890 Other specified postprocedural states
CPT/HCPCS: 43255; C1889; J2003; J2704; J3010

== ENCOUNTER → 2024-12-15 07:16 | Outpatient (BNV) | payer MEDICARE, SELFPAY | PROVIDERS: PCP Internal Medicine; Visit Provider Internal Medicine | DX: K31.811 Angiodysplasia of stomach and duodenum with bleeding (principal) | CPT/HCPCS: 43255 ==

== ENCOUNTER 2025-01-17 11:49 | Outpatient (REF) | payer MEDICARE, SELFPAY ==
--- OUTSIDE RECORDS SUMMARY | 2025-01-17 12:46 | XMS_ITS | Patient Health Record ---
Author [facility] [place] Address [address] [place] [address] Care Team Providers Care Baggage Clerk Name Role Phone Richard Li MD Primary Care Provider Unavaila Vera Mcgraw Unavailable [phone] Allergies Allergen (clinical drug ingredient) Drug/Non Drug [...] Treatment Pending Test Test Name Order Date [id number], 1-14 11/25/2017 Insurance Providers Payer Name Payer Address Payer Phone Subscriber Number Group Number Insured Name Patient Relationship to Insured Coverage Start Date Coverage End Date [employer] 65 Medicare Preferred [address] [place] [address] [id number] Loreto Crespo Self - patient is the insured Medical (General) History Medical History History ICD Code osteoarthritis Glaucoma High blood pressure Sciatica Measles Mumps Chicken pox
[2025-01-17 13:26] LABS: Hematocrit 37.0 % (37.0-47.0); Hemoglobin 11.7 g/dl (12.0-16.0); Mean Corpuscular HGB Conc 31.6 g/dl (31.0-35.0); Mean Corpuscular Hemoglobin 30.0 pg (27.0-33.0); Mean Corpuscular Volume 94.9 fL (80.0-98.0); NRBC Abs Auto 0.000 X10*3/uL (0.0-0.012); NRBC Pct Auto 0.0 /100WBC (0.0-0.2); Platelet Count 240 X10*3/uL (160-400); Red Blood Count 3.90 X10*6/uL (4.20-5.50); White Blood Count 6.9 X10*3/uL (4.8-10.8)
[2025-01-17 16:24] LABS: Iron 24 mcg/dL (30-160); Percent Iron Saturation 7 % (15-50); Total Iron Binding Capacity 357 mcg/dL (228-428); Unsaturated Iron Binding 333 ug/dL
[2025-01-17 16:37] LABS: Ferritin 26 ng/mL (10-250)
== END 2025-01-17 11:50 | disposition home or self-care (01) ==
LOC: HO.HMGCLDS 11:49
PROVIDERS: PCP Internal Medicine; Visit Provider Internal Medicine
DX: K31.819 Angiodysplasia of stomach and duodenum without bleeding (principal)
CPT/HCPCS: 36415; 82728; 83540; 85027

== ENCOUNTER 2025-01-25 10:51 | Outpatient (AMB) | payer MEDICARE, SELFPAY ==
--- NOTE | 2025-01-25 10:54 | MHC.OFFVIS ---
Vital Signs 01/25/25 10:58 Height 5 ft Weight 143 lb 4.807 oz BMI 28.0 Blood Pressure Location Lt brachial Position Sitting Intake Visit Reasons: s/p EGD Intake Note: Loreto presents in the office as a follow up for her EGD. CC: She states she is here today for the results Mri Special Procedures Technologist Required: No Allergies penicillin G (PENICILLIN G) Allergy (Unknown, Verified 01/25/25 10:58) Rash HPI Comments Details: 72 y.o F with PMH of HTN, seasonal allergies and arthritis who is here for severe RORO. 01/13/23: Pt reports noticing decreased stamina and shortness of breath on strenuous activities such as shoveling snow in Jun that has progressively worsened over the past few months. She reports finding out about anemia in October when she had blood work through orthopedics and was ntoed to have a Hb of 6.8. Was started on iron supplements and also followed up with Heme. Underwent x2u PRBC transfusion on 12/18. Was taking celebrex for arthritis which she stopped in October, otherwise no NSAID use. Does not report any gastrointestinal complaints to include abd pain, N, V, melena or hematochezia. No change in appetite or unintentional weight loss. Last colo was in her 50s (Dr Marquez) and was given a 10y interval however has been doing annual stool cards instead. No fam hx of CRC in first degree relatives. 01/23/23 EGD/colo: Impression: 1. Normal esophageal mucosa 2. Hiatal hernia 3. GAVE (APC) 4. Normal duodenum (biopsy) 5. Normal colon and terminal ileum mucosa 6. Total 3 polyps removed, 2 retrieved. 7. Internal hemorrhoids Path: A.? Duodenum, biopsy:? Duodenal mucosa with preserved villi and no specific change. B.? Stomach, random, biopsy:? Gastric body mucosa with minimal chronic inactive gastritis; negative for H pylori, intestinal metaplasia and dysplasia; gastric antral vascular ectasia cannot be confirmed.? C.? Colon, transverse, 2 polyps:? Tubular adenomas (2 pieces); negative for high-grade dysplasia and carcinoma. 02/02/23: CT Abd/pel: GASTROINTESTINAL TRACT: The small and large bowel are unremarkable. The appendix is unremarkable.? 02/04/23: Comes in today without any abdominal complaints including abd pain, N,V,D or change in bowel habits. EGD/colo results reviewed. CT results reviewed. 03/26/23: EGD (Dr Mittal) Larynx:normal Esophagus: GE junction at 34 cm, diaphragm hiatus at 40 cm, 6 cm hiatal hernia noted, streaky erythema noted within the hernia sac Stomach: Patchy gastric erythema in the antrum consistent with moderate severe GAVE (Gastric antral vascular ectasia) . Hybrid APC was performed effect 40 and 60 W to the erythematous areas and then hemospray applied. Grade 2 flap valve on retroflexed examination of the cardia. Duodenum: Normal bulb and descending duodenum, Intervention: hybrid APC to GAVE 04/08/23: Comes in for post-EGD follow up. Reports was not able to get nexium covered through her insurance. Also had trouble with sucralfate. Was also apprehensive about previous EGD findings. This was all clarified. Main CC today is nausea and dysgeusia since the EGD otherwise no other issues. Due to see Dr Wong in 2 weeks. 09/08/24: 1. Normal esophageal mucosa 2. Hiatal hernia 3. Bleeding GAVE (APC) 4. Normal duodenum 09/30/24: Here for post egd follow up. Reports carafate did not agree with her so only took it for a week. Has no active Gi issues. Wonders if the celecoxib she took for her knee back in 2022 triggered and reviewed difficult to ascertain in hindsight. 12/15/24: 1. Normal esophageal mucosa 2. Hiatal hernia 3. Bleeding GAVE (APC) 4. Normal duodenum 01/25/25: Here for follow up. Reports no acute GI sx. No abd pain, N,V. Has been taking pepcid. Also on PO iron supplementation. Tried sucralfate - pill form covered - but only took it for a week as doesnt agree with her. Laboratory Tests 08/18/24 01/17/25 13:39 11:53 Hgb 11.7 L Hct 37.0 Plt Count 240 Iron 24 L % Saturation 7 L Ferritin 38 26 PFSH Medical History Anemia GAVE (gastric antral vascular ectasia) Seasonal allergies Hx of glaucoma History of broken leg HTN (hypertension) Arthritis Surgical History History of surgery on lower extremity Hx of esophagogastroduodenoscopy Hx of colonoscopy (~01/23/23) Hx of carpal tunnel repair Family History Sister Lung cancer COPD (chronic obstructive pulmonary disease) Breast cancer Afib Father DVT (deep venous thrombosis) Heart disease Social History Household Members: Spouse and Other Housing: House Are you a primary healthcare associate to a significant other at home: No Do you presently have visiting nurse or other home services: No Alcohol intake: former Patient Tobacco Use Status: Never used Tobacco e-Cigarette/Vaping Use: Never Used service: No Current occupational status: retired Cognitive needs: No Hearing needs: No Vision needs: Yes (rx glasses) Review of Systems Const All systems reviewed & are unremarkable except as noted in HPI and below Physical Exam Vital Signs: BMI result Body Mass Index 28.0 Assessment & Plan Assessment & Plan (1) GAVE (gastric antral vascular ectasia): Code(s): K31.819 - Angiodysplasia of stomach and duodenum without bleeding Category: Medical (2) Iron deficiency: Code(s): E61.1 - Iron deficiency Category: Medical (3) Anemia: Code(s): D64.9 - Anemia, unspecified Category: Medical Plan Reviewed that will need to follow up endoscopic ablation at least q3-4m to avoid worsening of GAVE. Based on appearance at next EGD, may elect banding for GAVE. We alos reviewed alt options for iron repletion. Pt would like to opt out of iron infusions for now and cont with PO supplementation. From prev visit:Reviewed natural progression and options for endoscopic hemostasis including APC, and EBL if needed. Reviewed that typically this responds well to above but if refractory can consider other options such as cryo. Recommendations: - EGD to be booked by Oct - Cont famotidine - CBC and ferritin in 4 weeks Follow up after next EGD Orders: Orders Complete Blood Count no Diff 4 Weeks E61.1 - Iron deficiency Ferritin 4 Weeks E61.1 - Iron deficiency Coding Level of Care Code Est Pt Level 4 (61545) Diagnoses GAVE (gastric antral vascular ectasia) K31.819 Iron deficiency E61.1 Anemia D64.9
[2025-01-25 10:58] VITALS: BMI 28.0
--- OUTSIDE RECORDS SUMMARY | 2025-01-25 12:13 | XMS_ITS | Patient Health Record ---
[facility] [place] Address [address] [place] [address] Care Team Providers Care Pathology Assistant Name Role Phone Richard Li MD Primary Care Provider Unavaila Vera Mcgraw Unavailable [phone] Allergies Allergen (clinical drug ingredient) Drug/Non Drug [...] Treatment Pending Test Test Name Order Date [id number], 1-14 11/25/2017 Insurance Providers Payer Name Payer Address Payer Phone Subscriber Number Group Number Insured Name Patient Relationship to Insured Coverage Start Date Coverage End Date [employer] 65 Medicare Preferred [address] [place] [address] [id number] Loreto Crespo Self - patient is the insured Medical (General) History Medical History History ICD Code osteoarthritis Glaucoma High blood pressure Sciatica Measles Mumps Chicken pox
== END 2025-01-25 11:39 | disposition home or self-care (01) ==
LOC: HO.HGI 10:51
PROVIDERS: PCP Internal Medicine; Visit Provider Internal Medicine
DX: K31.819 Angiodysplasia of stomach and duodenum without bleeding (principal); E61.1 Iron deficiency; D64.9 Anemia, unspecified
CPT/HCPCS: 99214

== ENCOUNTER → 2025-01-25 10:51 | Outpatient (BNVA) | payer MEDICARE, SELFPAY | PROVIDERS: PCP Internal Medicine; Visit Provider Internal Medicine | DX: K31.819 Angiodysplasia of stomach and duodenum without bleeding (principal); E61.1 Iron deficiency; D64.9 Anemia, unspecified | CPT/HCPCS: 99212 ==

== ENCOUNTER 2025-02-20 10:44 | Outpatient (REF) | payer MEDICARE, SELFPAY ==
[2025-02-20 13:32] LABS: Hematocrit 39.0 % (37.0-47.0); Hemoglobin 12.5 g/dl (12.0-16.0); Mean Corpuscular HGB Conc 32.1 g/dl (31.0-35.0); Mean Corpuscular Hemoglobin 30.5 pg (27.0-33.0); Mean Corpuscular Volume 95.1 fL (80.0-98.0); NRBC Abs Auto 0.000 X10*3/uL (0.0-0.012); NRBC Pct Auto 0.0 /100WBC (0.0-0.2); Platelet Count 261 X10*3/uL (160-400); Red Blood Count 4.10 X10*6/uL (4.20-5.50); White Blood Count 7.6 X10*3/uL (4.8-10.8)
--- OUTSIDE RECORDS SUMMARY | 2025-02-20 13:58 | XMS_ITS | Patient Health Record ---
[facility] [place] Address [address] [place] [address] Care Team Providers Care Combat Systems Operator Name Role Phone Richard Li MD Primary Care Provider Unavaila Vera Mcgraw Unavailable [phone] Allergies Allergen (clinical drug ingredient) Drug/Non Drug [...] Treatment Pending Test Test Name Order Date [id number], 1-11/25/2017 Insurance Providers Payer Name Payer Address Payer Phone Subscriber Number Group Number Insured Name Patient Relationship to Insured Coverage Start Date Coverage End Date [facility] 65 Medicare Preferred [address] [place] [address] [phone] [id number] Loreto Crespo Self - patient is the insured Medical (General) History Medical History History ICD Code osteoarthritis Glaucoma High blood pressure Sciatica Measles Mumps Chicken pox
[2025-02-20 14:05] LABS: Ferritin 27 ng/mL (10-250)
== END 2025-02-20 10:45 | disposition home or self-care (01) ==
LOC: HO.HMGCLDS 10:44
PROVIDERS: PCP Internal Medicine; Visit Provider Internal Medicine
DX: E61.1 Iron deficiency (principal)
CPT/HCPCS: 36415; 82728; 85027

== ENCOUNTER 2025-04-05 13:11 | Outpatient (REF) | payer MEDICARE, SELFPAY ==
--- OUTSIDE RECORDS SUMMARY | 2025-04-05 16:47 | XMS_ITS | Patient Health Record ---
Author [facility] [place] Address [address] [place] [address] Care Team Providers Care Agriculture Manager Name Role Phone Richard Li MD Primary Care Provider Unavaila Vera Mcgraw Unavailable [phone] Allergies Allergen (clinical drug ingredient) Drug/Non Drug [...] Treatment Pending Test Test Name Order Date [id number], 1-11/25/2017 Insurance Providers Payer Name Payer Address Payer Phone Subscriber Number Group Number Insured Name Patient Relationship to Insured Coverage Start Date Coverage End Date [employer] 65 Medicare Preferred [address] [place] [address] [id number] Loreto Crespo Self - patient is the insured Medical (General) History Medical History History ICD Code osteoarthritis Glaucoma High blood pressure Sciatica Measles Mumps Chicken pox
== END 2025-04-05 13:12 | disposition home or self-care (01) ==
LOC: HO.MAMMO 13:11
PROVIDERS: PCP Physician Assistant; Visit Provider Physician Assistant
DX: Z12.31 Encounter for screening mammogram for malignant neoplasm of breast (principal)
CPT/HCPCS: 77063; 77067

== ENCOUNTER → 2025-04-05 13:30 | Outpatient (BNV) | payer MEDICARE, SELFPAY | PROVIDERS: PCP Physician Assistant; Visit Provider Radiology Body Imaging | DX: Z12.31 Encounter for screening mammogram for malignant neoplasm of breast (principal) | CPT/HCPCS: 77063; 77067 ==

== ENCOUNTER 2025-04-13 07:25 | Day surgery (SDC) | payer MEDICARE, SELFPAY ==
--- OUTSIDE RECORDS SUMMARY | 2025-03-14 08:39 | XMS_ITS | Patient Health Record ---
[facility] [place] Address [address] [address] Care Team Providers Care Director Case Management Name Role Phone Richard Li MD Primary Care Provider Unavaila Vera Mcgraw Unavailable [phone] Allergies Allergen (clinical drug ingredient) Drug/Non Drug [...] Treatment Pending Test Test Name Order Date [id number], 1-11/25/2017 Insurance Providers Payer Name Payer Address Payer Phone Subscriber Number Group Number Insured Name Patient Relationship to Insured Coverage Start Date Coverage End Date [facility] 65 Medicare Preferred [address] [place] [address] [phone] [id number] Loreto Crespo Self - patient is the insured Medical (General) History Medical History History ICD Code osteoarthritis Glaucoma High blood pressure Sciatica Measles Mumps Chicken pox
--- NOTE | 2025-04-11 12:09 | HO.ANESPROP2 ---
Documented by User: Billie Monique NP 04/11/25 12:14 HPI - Anesthesia Eval Consult details Narrative: 75 yr old female for Upper Endo with APC s/p upper EGD with MAC on 12/15/24 Anemia/GAVE: follows [facility] hem/onc, labs from 03/09 show improved/stable H/H 12.6/38.7 PMFSH Active Problems Active Problems: All Active Problems (Updated 12/06/24 @ 14:31 by Martha Wong MD) B12 deficiency (Acute) Seasonal allergies (Acute) Polyarthralgia (Acute) GAVE (gastric antral vascular ectasia) (Acute) Hyperkalemia (Acute) CKD (chronic kidney disease) stage 3, GFR 30-59 ml/min (Acute) Personal history of colonic polyps (Acute) Hypercalcemia (Acute) Iron deficiency (Acute) Anemia (Acute) Family history of deep vein thrombosis (Acute) HTN (hypertension) (Acute) Past Medical History Medical History Anemia GAVE (gastric antral vascular ectasia) Seasonal allergies Hx of glaucoma History of broken leg HTN (hypertension) Arthritis Family History Family History Sister Lung cancer COPD (chronic obstructive pulmonary disease) Breast cancer Afib Father DVT (deep venous thrombosis) Heart disease Family history of problems with anesthesia: No Surgical History Surgical History History of surgery on lower extremity Hx of esophagogastroduodenoscopy (12/15/24) Hx of colonoscopy (~01/23/23) Hx of carpal tunnel repair History of Problems with Anesthesia: No Social History Social History Household Members: Spouse and Other Housing: House Are you a primary critical care physician to a significant other at home: No Do you presently have visiting nurse or other home services: No Alcohol intake: former Patient Tobacco Use Status: Never used Tobacco e-Cigarette/Vaping Use: Never Used Have you been hit, kicked, punched, or otherwise hurt by someone within the past year? If so, by whom?: No Are you DNR?: No Advance Directives: No Advance Directives Information Provided: Yes service: No Current occupational status: retired Cognitive needs: No Hearing needs: No Vision needs: Yes (rx glasses) Meds Allergies Allergy/AdvReac Type Severity Reaction Status Date / Time penicillin G (PENICILLIN G) Allergy Unknown Rash Verified 04/13/25 07:31 Home Medications ?Medication ?Instructions ?Recorded ?Confirmed ?Last Taken ?Type fluticasone propionate 50 1 spray intranasal DAILY 10/30/20 04/11/25 01/23/23 History mcg/actuation nasal spray,suspension ascorbic acid (vitamin C) 500 mg 500 mg PO DAILY 12/18/22 04/11/25 Unknown History tablet (Vitamin C) ferrous sulfate 325 mg (65 mg 325 mg PO DAILY 12/18/22 04/11/25 03/24/23 History iron) tablet (iron) omega-3 fatty acids 800 mg PO DAILY 10/27/23 04/11/25 Unknown History acetaminophen 650 mg 650 mg PO Q12H PRN Pain 09/08/24 04/11/25 04/13/25 History tablet,extended release oneamzdklpei-jdcqgvql-tdfgax tablet 1 tab PO DAILY 09/08/24 04/11/25 Unknown History Exam Pertinent Lab Results Pertinent Lab Results: Laboratory Tests 03/09/25 13:36 WBC 7.6 RBC 4.10 L Hgb 12.6 Hct 38.7 Plt Count 252 Sodium 141 Potassium 4.8 Chloride 105 Carbon Dioxide 29 BUN 29 H Creatinine 0.84 Assessment and Plan Final Anesthetic Review Family History of Problems with Anesthesia: No History of Problems with Anesthesia: No Documented by User: Loi Johns MD 04/13/25 08:12 [facility] Past Medical History Medical History Anemia GAVE (gastric antral vascular ectasia) Seasonal allergies Hx of glaucoma History of broken leg HTN (hypertension) Arthritis Functional capacity: independent ambulation Family History Family History Sister Lung cancer COPD (chronic obstructive pulmonary disease) Breast cancer Afib Father DVT (deep venous thrombosis) Heart disease Surgical History Surgical History History of surgery on lower extremity Hx of esophagogastroduodenoscopy (12/15/24) Hx of colonoscopy (~01/23/23) Hx of carpal tunnel repair Social History Social History Household Members: Spouse and Other Housing: House Are you a primary critical care physician to a significant other at home: No Do you presently have visiting nurse or other home services: No Alcohol intake: former Patient Tobacco Use Status: Never used Tobacco e-Cigarette/Vaping Use: Never Used Have you been hit, kicked, punched, or otherwise hurt by someone within the past year? If so, by whom?: No Are you DNR?: No Advance Directives: No Advance Directives Information Provided: Yes service: No Current occupational status: retired Cognitive needs: No Hearing needs: No Vision needs: Yes (rx glasses) Meds Allergies Allergy/AdvReac Type Severity Reaction Status Date / Time penicillin G (PENICILLIN G) Allergy Unknown Rash Verified 04/13/25 07:31 Home Medications ?Medication ?Instructions ?Recorded ?Confirmed ?Last Taken ?Type fluticasone propionate 50 1 spray intranasal DAILY 10/30/20 04/11/25 01/23/23 History mcg/actuation nasal spray,suspension ascorbic acid (vitamin C) 500 mg 500 mg PO DAILY 12/18/22 04/11/25 Unknown History tablet (Vitamin C) ferrous sulfate 325 mg (65 mg 325 mg PO DAILY 12/18/22 04/11/25 03/24/23 History iron) tablet (iron) omega-3 fatty acids 800 mg PO DAILY 10/27/23 04/11/25 Unknown History acetaminophen 650 mg 650 mg PO Q12H PRN Pain 09/08/24 04/11/25 04/13/25 History tablet,extended release hyegwklatrju-sexnzhdu-mtyxkq tablet 1 tab PO DAILY 09/08/24 04/11/25 Unknown History Exam Exam Date and Time: 04/13/2025 Airway TM Dist: >3cm Neck ROM: Full Loose/Missing/Broken Teeth: No Heart: normal Lungs: clear Other: normal Assessment and Plan Assessment Anesthesia Assessment: Anesthesia Plan Discussed and Chart Reviewed Final Anesthetic Review NPO: Yes ASA Class: II Final Preanesthetic Review: No Changes in Pt Med Stat, Meds/Allgs Chart Reviewed, Consent Obtained/Reviewed and Anes Risks/Benef Reviewed Patient Risk: Low Anesthetic Plan Anesthetic Plan: MAC: Disposition: Standard PACU
[2025-04-11 12:47] VITALS: BMI 28.0
[2025-04-13 07:30] VITALS: BMI 29.3
--- NOTE | 2025-04-13 07:50 | MHC.SHP ---
Pre-Procedural Eval Section A - 24 Hr Update-Section A only Date of Service: 04/13/25 Section B - Complete if H&P > 30 days Chief Complaint: Angiodysplasia of stomach and duodenum w/o bleed Details of Present Illness: Seasonal allergies Hx of glaucoma History of broken leg HTN (hypertension) Arthritis Surgical History Hx of esophagogastroduodenoscopy Hx of colonoscopy Hx of carpal tunnel repair Present Medications: see Short Stay Collaborative assessment Allergies: Allergies Allergy/AdvReac Type Severity Reaction Status Date / Time penicillin G (PENICILLIN G) Allergy Unknown Rash Verified 04/13/25 07:31 Review of Systems Review of Systems Comment: Ten point ROS negative Exam Exam Comment: Gen appear: No acute distress HEENT: no icterus Chest: No overt resp distress Abd: soft, nontender, nondistended Psych: Stable affect, answering questions appropriately Neuro: A/Ox3 noted to move all extremities spontaneously Ext: no peripheral edema Plan Diagnosis/Plan: Unchanged I have reviewed the history and physical and performed a pertinent physical examination on my patient. No changes have occurred unless specified. Time Spent With Patient Time: Total time managing care of this patient today ____ minutes.
[2025-04-13] MEDS: Lactated Ringers 1,000 ML 100 ML IVCONT (07:51)
[2025-04-13 08:00] VITALS: BP 151/60; PULSE 91; RESP 18; TEMP 36.6; O2SAT 100
--- NOTE | 2025-04-13 08:27 | P.OP_ITS ---
Operative Note Operative Note Date of Service: 04/13/25 Narrative: Procedure:?Esophagogastroduodenoscopy Endoscopist:?Loreta Rice MD Indication:?Anemia, GAVE Anesthesia Provider:?Dr Johns Anesthesia Type:?MAC Instrument:?Olympus [id number]-[id number] EGD Procedure:?? The procedure, indications, preparation and potential complications were reviewed with the patient, who indicated understanding and gave written informed consent to proceed. A physical exam was performed. The endoscope was introduced through the mouth, and advanced to the second part of duodenum. The mucosa was carefully examined on slow withdrawal of the endoscope.? There were no immediate complications.? Patient tolerated the procedure well. EGD Findings:? * Esophagus:? Normal mucosa noted in the entire esophagus.? The Z-line is at 33 cm. There was a hiatal hernia with a diaphragmatic pinch at 38 cm.? * Stomach:? 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 This is now present very focally only between 4 to 7 o clock. There was no sponraneous bleeding. This was ablated with Argon plasma coagulation using circumferential catheter. Retroflexion was performed in the fundus and showed Hill grade III hiatal hernia. * Duodenum:?Normal duodenal mucosa to the extent visualised. Impression: 1. Normal esophageal mucosa 2. Hiatal hernia 3. GAVE (APC) 4. Normal duodenum Recommendations: - Sucralfate 10 ml TID x 2 weeks. Pt already has this at home. - Continue Famotidine 20 mg BID - Repeat EGD in 3 months. Anticipate even further improvement, in which case we can space out future EGDs.
[2025-04-13 08:51] VITALS: BP 121/54; PULSE 79; RESP 12; TEMP 36.9; O2SAT 100
[2025-04-13 09:07] VITALS: BP 148/63; PULSE 71; RESP 16; O2SAT 99
[2025-04-13 09:23] VITALS: BP 146/53; PULSE 76; RESP 16; TEMP 36.8; O2SAT 99
== END 2025-04-13 10:16 | disposition home or self-care (01) ==
PROVIDERS: PCP Internal Medicine; Visit Provider Internal Medicine
PROC: (CPT 43255; principal; 2025-04-13 09:10)
DX: K31.819 Angiodysplasia of stomach and duodenum without bleeding (principal); K44.9 Diaphragmatic hernia without obstruction or gangrene; E61.1 Iron deficiency
CPT/HCPCS: 43255; C1889; J2003; J2704; J3010

== ENCOUNTER → 2025-04-13 07:25 | Outpatient (BNV) | payer MEDICARE, SELFPAY | PROVIDERS: PCP Internal Medicine; Visit Provider Internal Medicine | DX: D50.0 Iron deficiency anemia secondary to blood loss (chronic) (principal); K31.819 Angiodysplasia of stomach and duodenum without bleeding | CPT/HCPCS: 43270 ==

== ENCOUNTER 2025-04-21 12:47 | Outpatient (AMB) | payer MEDICARE, SELFPAY ==
--- NOTE | 2025-04-21 12:53 | A.OFFPC_ITS ---
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 Accompanied by: Self / Same As Patient Allergies penicillin G (PENICILLIN G) Allergy (Unknown, Verified 04/21/25 12:55) Rash Medication List - Last Reconciled 04/21/25 by SERGIO Montoya acetaminophen ER 650 mg PO Q12H PRN ascorbic acid (vitamin C) (Vitamin C) 500 mg PO DAILY clindamycin HCl mg PO famotidine 20 mg PO BID 90 days ferrous sulfate (iron) 325 mg PO DAILY fluticasone propionate 50 mcg/actuation 1 spray intranasal DAILY hydralazine 10 mg PO TID [id number]-[id number] 1 tab PO DAILY omega-3 fatty acids 800 mg PO DAILY Tobacco use date assessed: 11/24/24 Dental Screening Dental Screen Date: 11/24/24 HPI HPI Comments History of Present Illness Details 72 y.o F with PMH of HTN, seasonal aller gies and arthritis, RORO, GAVE, presenting for follow up HTN: On amlodipine5 mg daily, but reports adverse side effects including flushing, ankle swelling, fatigue. Blood pressure elevated at 150/50 and has been on elevated at previous visits as well as at home. She was seen by Nephrology who recommended hydralazine but she was nervous about the side effects so she did not take this.. Denies chest pain, exertional dyspnea. She has flushing and ankle swelling swelling. CKD stage 3- due to hypertensive nephrosclerosis. Lisinopril was discontinued. GFR now normal Chronic RORO-Follows with GI, hematology, nephrology. Last hemoglobin was increased and stable. On ferrous sulfate GAVE- Follows with Dr. Rice. On famotidine 40mg BID 04/13 EGD 1. Normal esophageal mucosa 2. Hiatal hernia 3. GAVE (APC) 4. Normal duodenum OA: multiple joints. Polyarthraliga. Sees Dr [facility] at [facility]. Receives hand shots, neck injections. Knee OA. Had 3 right knee surgeries, fell down stairs 2017 Health Maintenance: RSV summer 2024 Flu vaccine 03/23 DEXA 03/30- normal Mammo 04/05/25- no evidence of malignancy Last colo 01/28, prn follow up. Dr Dwayne DALEY: see hpi EXAM: Constitutional - Awake and Alert, No apparent distress Eyes - PERRL Cardiovascular - S1S2, RRR, ble edema Respiratory - Normal lung expansion, Normal respiratory effort, No respiratory distress, CTA bilaterally Extremities - no calf tenderness bilaterally, no swelling Skin - Warm/Dry Neurological - Alert & oriented x3 Psychological - Appropriate affect PFSH Medical History Anemia GAVE (gastric antral vascular ectasia) Seasonal allergies Hx of glaucoma History of broken leg HTN (hypertension) Arthritis Surgical History History of surgery on lower extremity Hx of esophagogastroduodenoscopy (12/15/24) Hx of colonoscopy (~01/23/23) Hx of carpal tunnel repair Family History Sister Lung cancer COPD (chronic obstructive pulmonary disease) Breast cancer Afib Father DVT (deep venous thrombosis) Heart disease Social History Household Members: Spouse and Other Housing: House Are you a primary home care scheduler to a significant other at home: No Do you presently have visiting nurse or other home services: No Alcohol intake: former Patient Tobacco Use Status: Never used Tobacco e-Cigarette/Vaping Use: Never Used service: No Current occupational status: retired Cognitive needs: No Hearing needs: No Vision needs: Yes (rx glasses) Questionnaire Thrive Questionnaire Date Thrive assessed: 11/24/24 JC-7 AMB Questionnaire JC-7 Date JC - 7 assessed: 11/24/24 Source: Developed by Drs. Toan Sparks, Yary Flores, Warren Patricio and colleagues, with an educational dione from [employer]. Physical exam (Primary Care) Vital Signs: Last Vital Signs Temp 98.0 F 04/21/25 12:58 Pulse 62 04/21/25 12:58 Resp 20 04/21/25 12:58 BP 150/50 H 04/21/25 12:58 Pulse Ox 98 04/21/25 12:58 Oxygen Delivery Method Room Air 04/21/25 12:58 BMI result Body Mass Index 30.5 Tobacco/Smoking Status: Tobacco use Status Tobacco use date assessed 11/24/24 04/21/25 13:02 Patient Tobacco Use Status Never used Tobacco 04/21/25 13:02 e-Cigarette/Vaping Use Never Used 04/21/25 13:02 Thrive Assessment: Date of Thrive Assessment Date Thrive assessed 11/24/24 04/21/25 13:02 Coding Level of Care Code Est Pt Level 4 (07143) Complex EM visit Add On G2211 Diagnoses Primary hypertension I10 Hypertension type: primary hypertension GAVE (gastric antral vascular ectasia) K31.819 Polyarthralgia M25.50 Iron deficiency E61.1 Assessment & Plan Assessment & Plan (1) HTN (hypertension): Code(s): I10 - Essential (primary) hypertension Category: Medical Qualifiers: Hypertension type: primary hypertension Qualified Code(s): I10 - Essential (primary) hypertension Plan: Uncontrolled. Discontinue amlodipine. Initiate hydralazine 10 mg t.i.d.. Discussed side effects. Follow-up in the office in 2-3 weeks for blood pressure check (2) GAVE (gastric antral vascular ectasia): Code(s): K31.819 - Angiodysplasia of stomach and duodenum without bleeding Category: Medical Plan: No active bleeding. Reviewed results of last endoscopy. Follow up with Gastroenterology as scheduled. Continue famotidine twice daily (3) Polyarthralgia: Code(s): M25.50 - Pain in unspecified joint Category: Medical Plan: Continue following with [facility]. (4) Iron deficiency: Code(s): E61.1 - Iron deficiency Category: Medical Plan: Continue ferrous sulfate. Continue following with Gastroenterology, Nephrology, Hematology Plan Follow-up in the office in 2-3 weeks. Lipid panel ordered Orders: Orders Lipid Panel Today Z13.220 - Encounter for screening for lipoid disorders Medications: New hydralazine 10 mg PO TID 270 tabs 1RF Discontinued amlodipine Discontinued Reason: Doctor's Order 5 mg PO DAILY 90 tabs 1RF
[2025-04-21 12:58] VITALS: BP 150/50; PULSE 62; RESP 20; TEMP 36.7; O2SAT 98; BMI 30.5
== END 2025-04-21 13:39 | disposition home or self-care (01) ==
PROVIDERS: PCP Physician Assistant; Visit Provider Physician Assistant
DX: I10 Essential (primary) hypertension (principal); K31.819 Angiodysplasia of stomach and duodenum without bleeding; M25.50 Pain in unspecified joint; E61.1 Iron deficiency

== ENCOUNTER → 2025-04-21 12:47 | Outpatient (BNVA) | payer MEDICARE, SELFPAY | PROVIDERS: PCP Internal Medicine; Visit Provider Physician Assistant | DX: I10 Essential (primary) hypertension (principal); K31.819 Angiodysplasia of stomach and duodenum without bleeding; M25.50 Pain in unspecified joint; D50.9 Iron deficiency anemia, unspecified; M19.90 Unspecified osteoarthritis, unspecified site; Z79.899 Other long term (current) drug therapy | CPT/HCPCS: 99212 ==

== ENCOUNTER 2025-05-08 10:01 | Outpatient (REF) | payer MEDICARE, SELFPAY ==
[2025-05-08 14:03] LABS: Cholesterol 225 mg/dL (<200); HDL Cholesterol 65 mg/dL (>40); Triglycerides 99 mg/dL (<150)
[2025-05-08 14:13] LABS: Vitamin B12 1271 pg/mL (200-900)
[2025-05-08 14:17] LABS: Ferritin 24 ng/mL (10-250)
== END 2025-05-08 10:02 | disposition home or self-care (01) ==
LOC: HO.HMGCLDS 10:01
PROVIDERS: Absent Provider Internal Medicine; PCP Physician Assistant; Visit Provider Physician Assistant
DX: Z13.220 Encounter for screening for lipoid disorders (principal); E53.8 Deficiency of other specified B group vitamins; D50.9 Iron deficiency anemia, unspecified; Z13.6 Encounter for screening for cardiovascular disorders
CPT/HCPCS: 36415; 80061; 82607; 82728

== ENCOUNTER 2025-05-12 12:51 | Outpatient (AMB) | payer MEDICARE, SELFPAY ==
--- NOTE | 2025-05-12 12:53 | MHC.PC.OV ---
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 Accompanied by: Self / Same As Patient Allergies penicillin G (PENICILLIN G) Allergy (Unknown, Verified 05/12/25 12:54) Rash Medication List - Last Reconciled 05/12/25 by SERGIO Montoya acetaminophen ER 650 mg PO Q12H PRN ascorbic acid (vitamin C) (Vitamin C) 500 mg PO DAILY clindamycin HCl mg PO doxycycline hyclate 100 mg PO BID famotidine 20 mg PO BID 90 days ferrous sulfate (iron) 325 mg PO DAILY fluticasone propionate 50 mcg/actuation 1 spray intranasal DAILY hydralazine 10 mg PO TID [id number]-[id number]-[id number] 1 tab PO DAILY omega-3 fatty acids 800 mg PO DAILY Tobacco use date assessed: 11/24/24 Fall risk assessment: No Falls in past year Last assessed Fall Risk: 05/12/25 Dental Screening Dental Screen Date: 11/24/24 HPI HPI Comments History of Present Illness Details 72 y.o F with PMH of HTN, seasonal allergies and arthritis, RORO, GAVE, presenting for follow up. HTN: Amlodipine discontinued at last visit 2 weeks ago due to adverse effects. Was started on hydralazine 10 mg t.i.d. blood pressures at home well-controlled and controlled in the office as well. Hydralazine has also been recommended by Nephrology with whom she follows . Her ankle swelling has also resolved CKD stage 3- due to hypertensive nephrosclerosis. Lisinopril was discontinued. GFR now normal Chronic RORO-Follows with GI, hematology, nephrology. Last hemoglobin was increased and stable. On ferrous sulfate GAVE- Follows with Dr. Rice. On famotidine 40mg BID 04/13 EGD 1. Normal esophageal mucosa 2. Hiatal hernia 3. GAVE (APC) 4. Normal duodenum OA: multiple joints. Polyarthraliga. Sees Dr Forbes at [facility]. Receives hand shots, neck injections. Knee OA. Had 3 right knee surgeries, fell down stairs 2017 concerns: Sinus pressure, right ear pressure, watery eyes, throat irritation ongoing for about 7 days. No fevers or chills. Has improved slightly. She also has postnasal drip. Has chronic intermittent cough with her allergies and uses Flonase. Has not otherwise used any decongestants or sinus rinses. Nonhealing ulceration right forearm. Dusky discoloration left forearm. Reports she does often have to drag her arms on counters, getting into bed etc. due to her leg abnormality. Lesion on her right forearm has been present for several months without healing. No bleeding or purulent drainage when hit Health Maintenance: RSV summer 2024 Flu vaccine 03/23 DEXA 03/30- normal Mammo 04/05/25- no evidence of malignancy Last colo 01/28, prn follow up. Dr Dwayne DALEY: see hpi EXAM: Constitutional - Awake and Alert, No apparent distress Eyes - PERRL Cardiovascular - S1S2, RRR, ble edema Respiratory - Normal lung expansion, Normal respiratory effort, No respiratory distress, CTA bilaterally Extremities - no calf tenderness bilaterally, no swelling Skin - Warm/Dry. Scaling dry lesion with erythematous ring R forearm Neurological - Alert & oriented x3 Psychological - Appropriate affect [facility] Medical History (Updated 05/12/25 @ 13:54 by SERGIO Montoya) CKD (chronic kidney disease) stage 3, GFR 30-59 ml/min Anemia GAVE (gastric antral vascular ectasia) Seasonal allergies Hx of glaucoma History of broken leg HTN (hypertension) Arthritis Surgical History History of surgery on lower extremity Hx of esophagogastroduodenoscopy (12/15/24) Hx of colonoscopy (~01/23/23) Hx of carpal tunnel repair Family History Sister Lung cancer COPD (chronic obstructive pulmonary disease) Breast cancer Afib Father DVT (deep venous thrombosis) Heart disease Social History Household Members: Spouse and Other Housing: House Are you a primary medicare biller to a significant other at home: No Do you presently have visiting nurse or other home services: No Alcohol intake: former Patient Tobacco Use Status: Never used Tobacco e-Cigarette/Vaping Use: Never Used service: No Current occupational status: retired Cognitive needs: No Hearing needs: No Vision needs: Yes (rx glasses) Questionnaire Thrive Questionnaire Date Thrive assessed: 11/24/24 AUDIT C Alcohol Use Questionnaire (AUDIT-C) 1. How often do you have a drink containing alcohol?: Never 3. How often do you have six or more drinks on one occasion?: Never Total Score: 0 JC-7 AMB Questionnaire JC-7 Date JC - 7 assessed: 11/24/24 Source: Developed by Drs. Toan Sparks, Yary Flores, Warren Patricio and colleagues, with an educational dione from [employer]. Physical exam (Primary Care) Vital Signs: Last Vital Signs Temp 96.9 F 05/12/25 12:55 Pulse 68 05/12/25 12:55 Resp 16 05/12/25 12:55 BP 134/64 05/12/25 12:55 Pulse Ox 96 05/12/25 12:55 Oxygen Delivery Method Room Air 05/12/25 12:55 BMI result Body Mass Index 30.9 Tobacco/Smoking Status: Tobacco use Status Tobacco use date assessed 11/24/24 05/12/25 13:01 Patient Tobacco Use Status Never used Tobacco 05/12/25 13:01 e-Cigarette/Vaping Use Never Used 05/12/25 13:01 Thrive Assessment: Date of Thrive Assessment Date Thrive assessed 11/24/24 05/12/25 13:01 Coding Level of Care Code Est Pt Level 4 (17161) Complex visit Add On G2211 Diagnoses Primary hypertension I10 Hypertension type: primary hypertension Atypical squamoproliferative skin lesion D49.2 Viral sinusitis J32.9; B97.89 Assessment & Plan Assessment & Plan (1) HTN (hypertension): Code(s): I10 - Essential (primary) hypertension Category: Medical Qualifiers: Hypertension type: primary hypertension Qualified Code(s): I10 - Essential (primary) hypertension Plan: controlled. Continue hydralazine 10 mg t.i.d.. Low-sodium diet. Can also continue checking blood pressures at home and reach out to the office for any elevated readings (2) Atypical squamoproliferative skin lesion: Code(s): D49.2 - Neoplasm of unspecified behavior of bone, soft tissue, and skin Category: Medical Plan: lesion does have erythematous base though seems less likely that this symptom infectious, however we will Trial doxycycline 100 mg twice daily, educated on dosing and side effects. More likely this is a squamous proliferative skin lesion. She is referred to Dermatology as well (3) Viral sinusitis: Code(s): J32.9 - Chronic sinusitis, unspecified; B97.89 - Other viral agents as the cause of diseases classified elsewhere Category: Medical Plan: discussed that it is unlikely that this is bacterial at this point. Recommend nasal rinses, Neti pots, antihistamines. Would recommend careful use of decongestants given hypertension. Discussed that without began improving congestion, she may likely develop a bacterial infection. Given she will be taking doxycycline as above, this would also treat any potential bacterial infection that should evolve. Plan Follow-up in the office in 6 months with labs completed prior to visit Orders: Orders Basic Metabolic Panel 6 Months I10 - Essential (primary) hypertension Referrals Dermatology Referral D49.2 - Neoplasm of unspecified behavior of bone, soft tissue, and skin Medications: New doxycycline hyclate 100 mg PO BID 20 caps 0RF fluticasone propionate 50 mcg/actuation 1 spray intranasal DAILY 16 grams 5RF
[2025-05-12 12:55] VITALS: BP 134/64; PULSE 68; RESP 16; TEMP 36.1; O2SAT 96; BMI 30.9
== END 2025-05-12 13:55 | disposition home or self-care (01) ==
LOC: HO.HMCHD 12:52
PROVIDERS: PCP Physician Assistant; Visit Provider Physician Assistant
DX: I10 Essential (primary) hypertension (principal); D49.2 Neoplasm of unspecified behavior of bone, soft tissue, and skin; J32.9 Chronic sinusitis, unspecified; B97.89 Other viral agents as the cause of diseases classified elsewhere

== ENCOUNTER → 2025-05-12 12:51 | Outpatient (BNVA) | payer MEDICARE, SELFPAY | PROVIDERS: PCP Physician Assistant; Visit Provider Physician Assistant | DX: I10 Essential (primary) hypertension (principal); D49.2 Neoplasm of unspecified behavior of bone, soft tissue, and skin; J32.9 Chronic sinusitis, unspecified; B97.89 Other viral agents as the cause of diseases classified elsewhere | CPT/HCPCS: 99212 ==